=== PATIENT | female | born 1965 | race Caucasian/White ===

== ENCOUNTER 2018-09-23 17:36 | Emergency (ER) | payer MEDICAID, SELFPAY ==
[2018-09-23 17:37] VITALS: BP 139/97; PULSE 67; RESP 20; TEMP 36.8; O2SAT 96; BMI 33.5
--- NOTE | 2018-09-23 17:53 | CT_ITS ---
STUDY: CT BRAIN WITHOUT CONTRAST REASON FOR EXAM: Female, 52 years old. Syncope. RADIATION DOSAGE (If Supplied By Facility): CTDIvol = ( 44.99 ) mGy, DLP = ( 796.11 ) mGycm TECHNIQUE: Transaxial CT imaging of the brain was performed without administration of intravenous contrast material. Individualized dose optimization techniques were used for this CT. COMPARISON: No relevant priors. FINDINGS: Normal soft tissue structures. Normal calvarium. Normal size ventricles and extra-axial spaces for the patient's age. Normal white matter tracts of the cerebral hemispheres. Normal basal ganglia and thalami. Normal brainstem. Normal cerebellum. There is no intracranial hemorrhage. There are no findings of an acute ischemic infarction. Normal visualized paranasal sinuses. CT/Brain/Head without Contrast IMPRESSION: Normal unenhanced CT scan of the brain. Electronically Signed: Coral Montano MD at 18:16 EDT Tel , Service support ,
--- NOTE | 2018-09-23 17:54 | EKG12_ITS ---
Test Reason : Blood Pressure : / mmHG Vent. Rate : 071 BPM Atrial Rate : 071 BPM P-R Int : 132 ms QRS Dur : 092 ms QT Int : 416 ms P-R-T Axes : 034 024 023 degrees QTc Int : 452 ms Normal sinus rhythm Normal ECG Confirmed by KATHIA BOLES, HEIDI ([id number]), writer editor BLAIRE RHODES ([id number]) on 09/25/2018 1:48:14 PM Referred By: ABRAHAN Confirmed By:HEIDI BAE MD
--- NOTE | 2018-09-23 18:00 | RAD_ITS ---
STUDY: X-RAY CHEST REASON FOR EXAM: Female, 52 years old. Weakness, syncope. TECHNIQUE: Portable chest. COMPARISON: None. FINDINGS: The lungs are clear and expanded. There is no demonstrated pleural abnormality. Normal size heart. Normal mediastinum and alissa. Normal visualized pulmonary arteries. Normal visualized aortic arch and descending thoracic aorta. Normal visualized thoracic spine. Normal visualized ribs, clavicles, and shoulders. There is no demonstrated abnormality of the visualized soft tissue structures of the upper abdomen. RAD/Chest 1 View (Portable) IMPRESSION: Normal x-ray examination of the chest. Electronically Signed: Coral Montano MD at 18:13 EDT Tel , Service support ,
[2018-09-23] MEDS: 0.9% Normal Saline 1,000 ML 1000 ML IV (18:03)
[2018-09-23 18:08] LABS: Absolute Lymphocyte Count 2.71 X10^3/uL (0.83-4.51); Absolute Neutrophil Count 4.4 X10^3/uL (2.0-7.7); Basophil# 0.05 X10^3/uL; Basophil% 0.6 % (0-1); Eosinophil# 0.11 X10^3/uL; Eosinophils% 1.4 % (0-5); Hematocrit 39.7 % (37-47); Hemoglobin 13.4 g/dL (12.0-15.0); Lymphocyte # 2.71 X10^3/ul (4.0); Lymphocyte % 34.2 % (19-41); Mean Corp Hgb Conc 33.8 g/dL (32-36); Mean Corpuscular Hgb 32.4 pg (27.0-32.0); Mean Corpuscular Volume 95.9 fL (81-99); Mean Platelet Vol. 9.8 fl (6.2-12.0); Monocyte# 0.59 X10^3/uL; Monocyte% 7.4 % (0-10); NRBC Flagged by Analyzer 0 % (0-5); Neutrophil # 4.44 X10^3/uL (2.7-7.7); Neutrophil % 56.1 % (47-70); Platelet Count 236 K/mm3 (150-450); RBC Distribution Width SD 45.8 fl (35.1-43.9); Red Blood Count 4.14 M/mm3 (4.2-5.4); White Blood Count 7.9 K/mm3 (4.4-11.0)
[2018-09-23 18:28] LABS: AST(SGOT) 30 U/L (15-37); Alanine Aminotransfer ALT/SGPT 58 U/L (13-56); Albumin, Serum 3.6 g/dL (3.2-5.0); Alkaline Phosphatase 110 U/L (45-117); Anion Gap 6 (5-15); BUN 13 mg/dL (7-18); BUN/Creat Ratio 15.9 RATIO (10-20); Calcium,Total 8.8 mg/dL (8.5-10.1); Chloride 108 mmol/L (98-107); Creatinine, Serum 0.82 mg/dL (0.55-1.02); EST Glomerular Filtration Rate 78 mL/min (>60); Est Glom Filt Rate - Afr Amer 94 mL/min (>60); Estimated Creatinine Clearance 83.87 ml/min; Globulin 3.6 g/dL (2.2-4.2); Glucose 108 mg/dL (74-106); Potassium 3.2 mmol/L (3.5-5.1); Protein, Total 7.2 g/dL (6.4-8.2); Sodium Level 140 mmol/L (136-145)
--- NOTE | 2018-09-23 18:47 | ED.VIS.GEN ---
History of Present Illness Chief Complaint: Syncope Informant: Patient Onset: Today Context: Gradual Onset Timing: Continuous Current Severity: Moderate Maximum Severity: Moderate Narrative: Patient was at a wedding, she sustained a syncopal episode. She was standing up and felt quite lightheaded. She has no chest pain shortness of breath fever or chills. She still has some nausea. The episode was described as a brief loss of consciousness with rapid full recovery. There is no seizure-like activity. She does have a headache posteriorly from the fall. Past Medical History - Allergies and Home Meds Allergies/Adverse Reactions: Allergies No Known Allergies Allergy (Verified 09/23/18 17:37) Primary Care Physician: Wenceslao Mcleod [Primary Care Provider] - Prior records reviewed: Yes Past Medical History: - - Hypothyroidism, PVCs Smoking Status: Former smoker Review of Systems All systems negative except as indicated General: Reports: - - Syncope as in HPI. Denies: Fever Eyes: Denies: Visual changes - bilaterally, Diplopia ENT: Denies: Rhinorrhea, Sore throat Cardiovascular: Denies: Chest pain, Palpitations Respiratory: Denies: Dyspnea, Cough, Dyspnea on exertion Gastrointestinal: Reports: Nausea. Denies: Abdominal pain, Vomiting, Diarrhea, Melena, Hematochezia Genitourinary: Denies: Dysuria, Hematuria, Frequency Musculoskeletal: Denies: Back pain, Extremity Pain Skin: Denies: Rash, Wounds Neurological: Reports: Headache. Denies: Weakness, Numbness Physical Exam Vital Signs/Narrative: Vital Signs Temp Pulse Resp BP Pulse Ox 09/23/18 17:37 98.3 F 67 20 H 139/97 H 96 General: Well nourished, Well developed Head: Normocephalic, - - Tenderness posterior scalp region Eyes: Perrl ENT: Moist mucous membranes Neck: Nontender Cardiovascular: Regular rate, Regular rhythm Respiratory: No distress Abdomen: Soft, Nontender Back: Normal Inspection. Negative for: CVA tenderness Extremities: Nontender, No edema Skin: Normal color, No rash Neurological: Alert, Oriented x3, Normal Strength, Normal Sensation Diagnostic/Tx/Re-eval Chest X-Ray - ED: 1 View, Read by Radiologist - Rhythm Strip Rhythm Strip: Sinus Rhythm Rate: 71 Ectopy: None - EKG Initial EKG Interpretation: Sinus Rhythm, - - Rate 71, normal RI and QTc intervals. No ST changes. Interpreted by emergency doctor - Medical Decision Making Patient appears well, she is given IV fluids and she is significantly improved. I will discharge her. She has normal blood work, normal CT and x-ray. This is unlikely to be cardiac. She can follow-up with her PCP Disposition discharge stable condition ED Disposition - Plan for ED Patient: Disposition: Home or Assisted Living Instructions: SYNCOPE, Unk Cause Prescriptions: Ondansetron [Zofran Odt] 4 mg PO Q8H PRN PRN #10 tab PRN Reason: Nausea Prescription Printed Referrals: Wenceslao Mcleod [Primary Care Provider] - 5-7 Days
[2018-09-23 19:19] VITALS: BP 140/61; PULSE 67; RESP 18; O2SAT 99
== END 2018-09-23 19:20 | disposition home or self-care (01) ==
PROVIDERS: Emergency Provider Emergency Medicine; Family Provider Family Medicine; PCP Family Medicine
DX: R55 Syncope and collapse (principal); R51 Headache; E03.9 Hypothyroidism, unspecified; Z87.891 Personal history of nicotine dependence
CPT/HCPCS: 70450; 71045; 80053; 84484; 85025; 93005; 99285; J2405

== ENCOUNTER 2024-01-03 10:28 | Observation (INO) | payer OTHER, SELFPAY ==
[2024-01-03] VITALS (14 sets, daily range): BP systolic 130–167; BP diastolic 73–119; PULSE 76–229; RESP 9–29; TEMP 36.1–37; O2SAT 92–100; BMI 35.6; BMI 34.4
--- NOTE | 2024-01-03 10:54 | EKG12_ITS ---
Test Reason : TACHY Blood Pressure : */* mmHG Vent. Rate : 220 BPM Atrial Rate : * BPM P-R Int : * ms QRS Dur : 114 ms QT Int : 220 ms P-R-T Axes : * -5 149 degrees QTcB Int : 420 ms Critical Test Result: High HR Poor data quality, interpretation may be adversely affected WIDE COMPLEX TACHYCARDIA Incomplete left bundle branch block Left ventricular hypertrophy with repolarization abnormality ( Pearce product ) Abnormal ECG Confirmed by KATHIA BOLES, HEIDI ([id number]), sound editor PRASHANT GILL ([id number]) on 01/05/2024 11:26:13 AM Referred By: Confirmed By: HEIDI BAE MD
--- NOTE | 2024-01-03 10:59 | ED.VIS.CHEST ---
HPI History of Present Illness Chief Complaint: Chest Pain Informant: patient Onset/Context/Timing Onset: Today Activity at onset: sudden Timing: Continuous Quality: Positive for Burning, Heaviness, Sharp and Tightness Location: Substernal Current Severity: Severe Maximum Severity: Severe Worsened By: Nothing Relieved By: Nothing Associated Symptoms: Positive for Dyspnea, Lightheadedness and Palpitations; Negative for Nausea, Vomiting, Diaphoresis, Cough, Fever or Acid Reflux Narrative Narrative: Patient presents with chest pain and palpitations that began today. Patient states it began rather suddenly. Patient states it has been constant. Patient describes her pain as heaviness, tightness, burning, and sharp. Patient states it is over the lower substernal area. Patient states she feels lightheaded with this. Patient admits to some shortness of breath. Patient states she feels her heart racing. Patient denies any nausea or vomiting. Patient denies any diaphoresis. Patient states she took her metoprolol at home with no improvement. Prior Similar Symptoms: Yes CVD Risk Factors: Positive for Hypertension; Negative for Diabetes, Hypercholesterolemia, Family History 1' </=55 or Smoking PE Risk Factors: Negative for Recent Travel/Surgery, Recent Immobilization, Prior DVT or PE, Cancer or OCP + Smoking + >/=35 PFSH PFSH Medical History (Updated 01/03/24 @ 15:[address] Alex García, ) Arrhythmia Neuropathy Hypothyroid Home Medications ?Medication ?Instructions ?Recorded ?Last Taken ?Type levothyroxine 125 mcg tablet 0.5 tab PO DAILY 09/23/18 Unknown History gabapentin 100 mg capsule 100 mg PO TID 01/03/24 Unknown History gabapentin 100 mg capsule 200 mg PO QPM NERVE PAIN 01/03/24 Unknown History Allergy/AdvReac Type Severity Reaction Status Date / Time No Known Allergies Allergy Verified 01/03/24 10:29 Surgical History (Updated 01/03/24 @ 11:[address] Alex García, DO) H/O gastric sleeve Hx of appendectomy Hx of tubal ligation History of repair of hiatal hernia Hx of tonsillectomy Social History (Updated 01/03/24 @ 11:[address] Alex García, DO) Smoking Status: Former smoker alcohol intake: current alcohol intake frequency: a few times a month ROS ROS ED Constitutional Constitutional ED: Denies chills or fever(s) Eyes Eyes: Denies blurry vision or change in vision ENT ENT ED: Denies rhinorrhea or sore throat Cardiovascular Cardiovascular: Reports chest pain and palpitations Respiratory/Chest Respiratory/Chest: Reports dyspnea; Denies cough Gastrointestinal Gastrointestinal: Denies abdominal pain, nausea or vomiting Genitourinary Genitourinary ED: Denies dysuria or hematuria Musculoskeletal Musculoskeletal: Denies back pain or neck pain Integumentary Denies abscess or rash Neurologic Neurologic: Denies headache(s) or weakness Allergic/Immunologic Allergic/Immunologic ED: Denies mouth swelling or urticaria EXAM Physical Exam Const Vital Signs: 01/03/24 10:28 01/03/24 10:31 01/03/24 10:43 Temperature 98.3 F Temperature Source Temporal Pulse Rate 229 H 229 H 107 H Respiratory Rate 21 H Blood Pressure 163/119 H 167/115 H Blood Pressure Mean 133 132 Pulse Ox 97 Oxygen Delivery Method 01/03/24 10:47 01/03/24 11:03 01/03/24 11:05 Temperature Temperature Source Pulse Rate 93 96 Respiratory Rate 9 L 15 Blood Pressure 152/85 H 152/85 H Blood Pressure Mean 107 107 Pulse Ox 92 98 96 Oxygen Delivery Method Room Air Room Air Room Air 01/03/24 11:30 01/03/24 12:00 01/03/24 13:00 Temperature Temperature Source Pulse Rate 91 81 87 Respiratory Rate 22 H 17 29 H Blood Pressure 152/85 H 155/83 H 154/94 H Blood Pressure Mean 107 107 114 Pulse Ox 96 95 98 Oxygen Delivery Method Room Air Room Air Room Air 01/03/24 14:00 01/03/24 14:31 Temperature 98.6 F Temperature Source Pulse Rate 91 82 Respiratory Rate 16 17 Blood Pressure 141/74 H 146/73 H Blood Pressure Mean 96 97 Pulse Ox 96 99 Oxygen Delivery Method Room Air Positive well nourished and well developed General Appearance ED: well developed and NAD HEENT Reports moist mucous membranes Neck supple and no JVD Chest Wall inspection of chest normal and palpation of chest normal Resp normal respiratory effort and clear to auscultation bilaterally Cardio regular rhythm Rate: tachycardic GI soft to palpation, non-tender and non-distended Extremity normal to inspection General Extremety ED: Negative for edema General Extremity: Negative for edema Neuro oriented x3, CN's II-XII intact bilaterally, no sensory deficits noted and gait normal Sensorium / Orientation: awake and alert Motor Exam: strength 5/5 throughout Psych mental status grossly normal MDM MDM MDM Narrative Medical decision making narrative: Differential diagnose includes cardiac dysrhythmia, cardiac ischemia, pneumonia, pneumothorax, electrolyte abnormality, hypothyroidism, hyperthyroidism, hypomagnesemia, and pulmonary embolism. EKG will be obtained to assess for cardiac dysrhythmia and cardiac ischemia. Chest x-ray will be obtained to assess for pneumonia and pneumothorax. CBC will be obtained to assess for leukocytosis and anemia. Basic metabolic profile will be obtained to assess for electrolyte abnormality and renal function. D-dimer will be obtained to assess for pulmonary embolism. TSH will be obtained to assess for hypothyroidism and hyperthyroidism. High-sensitivity troponin will be obtained to assess for cardiac ischemia. PT with INR and PTT will be obtained to assess for coagulopathy. Serum magnesium will be obtained to assess for hypomagnesemia. Lab Data Attestation: I reviewed the patient's lab results. Lab results narrative: CBC was reviewed and was within normal limits. Basic metabolic profile was reviewed and was essentially within normal limits. PT with INR and PTT were reviewed and were within normal limits. TSH was reviewed and was normal at 0.0605. Initial high-sensitivity troponin was reviewed and was normal at 3. 2-hour repeat high-sensitivity troponin was reviewed and was mildly elevated at 78. D-dimer was reviewed and was elevated at 1.11. Labs: Laboratory Results - last 24 hr 01/03/24 01/03/24 11:00 13:15 WBC 8.4 RBC 4.72 Hgb 14.8 Hct 46.8 MCV 99.2 H MCH 31.4 MCHC 31.6 L RDW Std Deviation 48.7 H RDW Coeff of Kori 13.2 Plt Count 289 MPV 10.3 Immature Gran % (Auto) 0.400 Neut % (Auto) 71.2 H Lymph % (Auto) 19.9 Casey % (Auto) 7.1 Eos % (Auto) 0.8 Baso % (Auto) 0.6 Absolute Neuts (auto) 6.0 Absolute Lymphs (auto) 1.67 Nucleated RBC % 0 PT 12.1 INR 0.9 APTT 24.6 D-Dimer Quant (PE/DVT) 1.11 H* Sodium 138 Potassium 3.4 L Chloride 105 Carbon Dioxide 24.0 Anion Gap 9 BUN 12 Creatinine 0.97 Est GFR (MDRD) Af Amer 76 Est GFR (MDRD) Non-Af 62 BUN/Creatinine Ratio 12.3 Glucose 163 H Calcium 10.0 Magnesium 2.4 Troponin I High Sens 3 78 H TSH 0.605 Radiography Chest X-Ray - ED: 1 View, Read by ED Physician, Read by Radiologist and No Acute Disease Diagnostic Testing: Clinical Impression(s) from Imaging Studies Chest X-Ray 01/03/24 11:10 IMPRESSION: 1.6 cm nodular opacity within the right upper lung, likely reflects a confluence of shadows, cannot exclude an underlying nodule, recommend PA and lateral images for further characterization. Electronically Signed: Hali Padron MD at 11:30 EDT , Chest CTA 01/03/24 12:01 IMPRESSION: No demonstrated pulmonary embolism or arterial dissection. Bilateral emphysema. Pulmonary emphysema on CT is an independent risk factor for lung cancer. Recommend consideration for low dose CT (LDCT) lung cancer screening in the future. 5 and 4 mm pulmonary nodules, recommend follow-up chest CT in 12 months. Electronically Signed: Hali Padron MD at 13:07 EDT , Portable 1 view chest x-ray was obtained. On my independent interpretation, lung daly show a 1.6 cm nodular opacity in the right upper lung, this could be an underlying nodule. There is normal cardiac silhouette. Bony thorax is normal. There is no acute process noted. Radiologist also interpreted the x-ray and agrees. Because of the elevated D-dimer, CTA of the chest was obtained. There is bilateral emphysema. There is no evidence of pulmonary embolism or aortic dissection. There are 5 and 4 mm pulmonary nodules. Repeat chest CT is recommended in 12 months. This was interpreted by the radiologist and was also independently reviewed by myself. EKG Initial EKG: Attestation: I personally reviewed and interpreted this EKG as follows: Interpretation: SVT and Non-Specific ST Changes Comments: EKG was obtained. On my independent interpretation, it showed supraventricular tachycardia with a rate of 220. QRS interval was normal at 114 ms. QTc interval was 420 ms. There is borderline left axis deviation -5. There are nonspecific ST-T wave changes, these are most likely rate related. Prior EKG tracings: available for review Prior: Changed Follow-up EKG: Attestation: I personally reviewed and interpreted this EKG as follows: Interpretation: Sinus Rhythm (96) and Non-Specific ST Changes Comments: Repeat EKG was obtained. On my independent interpretation, shows a normal sinus rhythm with a rate of 96. FL interval was normal at 156 ms. QRS and was normal at 84 ms. QTc interval is normal at 429 ms. [place] was normal. There are nonspecific ST-T wave changes in the lateral leads. Prior EKG tracings: available for review Prior: Changed (Compared to EKG dated 09/23/2018, the nonspecific ST-T wave changes are new.) Management Discussion w/another healthcare provider: Hospitalist Treatment and Re-Evaluation :: Patient was given 6 mg of adenosine. Patient had no change with this. Patient was given 12 mg of adenosine. Patient converted to a normal sinus rhythm with this. Patient was given aspirin. Patient remained in a normal sinus rhythm. Patient was advised of her findings. Given the increase in her troponin, recommend admission to the hospital. Case was discussed with the hospitalist. He will admit the patient to his service. Patient and family understood and were agreeable with the plan. All questions were answered. Critical Care Time Critical Care Time: Yes Critical care time (excluding procedures): 30-74 minutes, Including time spent:, Discussing w/Patient &/or Family/Padding Gluer, Arranging Admission or Transfer and Performing Direct Patient Care at Bedside Discharge Plan Triage Chief Complaint: Chest Pain ED Provider: Alex García Dx/Rx/DC Orders Clinical Impression: Supraventricular tachycardia, Arrhythmia, Elevated troponin Prescriptions: No Action levothyroxine 125 MCG tablet 0.5 tab PO DAILY gabapentin 100 mg capsule 100 mg PO TID Rx Instructions: One tablet in AM, one tablet in afternoon, two tablets in evening. Primary Care Provider: Wenceslao Mcleod Referrals: Wenceslao Mcleod MD [Primary Care Provider] - Print Language: Hebrew Disposition Disposition: Acute Care Hospital [facility]
[2024-01-03] MEDS: Aspirin 81 MG TAB.CHEW 324 MG PO (11:00)
--- NOTE | 2024-01-03 11:00 | EKG12_ITS ---
Test Reason : POST RAJNI Blood Pressure : */* mmHG Vent. Rate : 96 BPM Atrial Rate : 96 BPM P-R Int : 156 ms QRS Dur : 84 ms QT Int : 340 ms P-R-T Axes : 51 6 65 degrees QTcB Int : 429 ms Normal sinus rhythm Nonspecific ST abnormality Abnormal ECG Confirmed by KATHIA BOLES, HEIDI ([id number]), design editor PRASHANT GILL ([id number]) on 01/05/2024 11:27:01 AM Referred By: Confirmed By: HEIDI BAE MD
[2024-01-03] MEDS: Adenosine 6 MG/2 ML Syringe 12 MG IV (11:01)
[2024-01-03] MEDS: Adenosine 6 MG/2 ML Syringe IV (11:01)
[2024-01-03 11:09] LABS: Absolute Lymphocyte Count 1.67 X10^3/uL (0.83-4.51); Basophil# 0.05 X10^3/uL; Basophil% 0.6 % (0-1); Eosinophil# 0.07 X10^3/uL; Eosinophils% 0.8 % (0-5); Hematocrit 46.8 % (37-47); Hemoglobin 14.8 g/dL (12.0-15.0); Lymphocyte # 1.67 X10^3/ul (0.83-4.51); Lymphocyte % 19.9 % (19-41); Mean Corp Hgb Conc 31.6 g/dL (32-36); Mean Corpuscular Hgb 31.4 pg (27.0-32.0); Mean Corpuscular Volume 99.2 fL (81-99); Mean Platelet Vol. 10.3 fl (6.2-12.0); Monocyte% 7.1 % (0-10); NRBC Flagged by Analyzer 0 % (0-5); Neutrophil # 5.98 X10^3/uL (2.7-7.7); Neutrophil % 71.2 % (47-70); Platelet Count 289 K/mm3 (150-450); RBC Distribution Width CV 13.2 % (11.6-14.6); RBC Distribution Width SD 48.7 fl (35.1-43.9); Red Blood Count 4.72 M/mm3 (4.2-5.4); White Blood Count 8.4 K/mm3 (4.4-11.0)
--- NOTE | 2024-01-03 11:10 | RAD_ITS ---
INDICATION: chest pain EXAMINATION/TECHNIQUE: X-RAY - XR Chest 1 View COMPARISON: No relevant prior comparison study available FINDINGS: LINES/DEVICES: None. LUNGS: There is a 1.6 cm nodular opacity within the right upper lung. No pneumothorax. MEDIASTINUM AND CARDIOVASCULAR STRUCTURES: Cardiac silhouette not enlarged. Central airways and mediastinal contour are unremarkable. BONES AND SOFT TISSUES: Unremarkable. RAD/Chest 1 View (Portable) IMPRESSION: 1.6 cm nodular opacity within the right upper lung, likely reflects a confluence of shadows, cannot exclude an underlying nodule, recommend PA and lateral images for further characterization. Electronically Signed: Hali Padron MD at 11:30 EDT ,
[2024-01-03 11:17] LABS: International Normalized Ratio 0.9; Prothrombin Time (Protime)PT. 12.1 SECONDS (11.7-14.9)
[2024-01-03 11:19] LABS: Partial Thromboplast Time 24.6 Seconds (24.1-36.2)
[2024-01-03 11:32] LABS: Anion Gap 9 (5-15); BUN 12 mg/dL (7-18); BUN/Creat Ratio 12.3 RATIO (10-20); Chloride 105 mmol/L (98-107); Creatinine, Serum 0.97 mg/dL (0.55-1.02); EST Glomerular Filtration Rate 62 mL/min (>60); Est Glom Filt Rate - Afr Amer 76 mL/min (>60); Glucose 163 mg/dL (74-106); Magnesium 2.4 mg/dL (1.6-2.6); Potassium 3.4 mmol/L (3.5-5.1); Sodium Level 138 mmol/L (136-145); Thyroid Stim Hormone (TSH) 0.605 uIU/mL (0.358-3.740); Troponin-I HS (w/2H Reflex) 3 pg/mL (3.0-54.0)
[2024-01-03 11:48] LABS: D-Dimer Quantitative (DVT/PE) 1.11 FEU/ug/m (0.27-0.49)
--- NOTE | 2024-01-03 12:01 | CT_ITS ---
STUDY: CTA CHEST REASON FOR EXAM: Female, 58 years old. Elevated D-dimer RADIATION DOSAGE (If Supplied By Facility): CTDIvol = ( 12.38 ) mGy, DLP = ( 434.34 ) mGycm TECHNIQUE: The examination was performed with the intravenous administration of IV 100mL Isovue-370. Post-processing of the angiographic images was performed, with multiplanar reformation and 3D reconstruction. The protocol utilizes one or more of the following dose reduction techniques: automated exposure control, adjustment of mA and/or kV according to patient size,and/or use of iterative reconstruction technique. COMPARISON: No relevant prior comparison study available FINDINGS: Normal enhancement of the main pulmonary artery and right and left pulmonary arteries. Normal enhancement of the bilateral peripheral pulmonary arteries. There is no demonstrated pulmonary embolism. Normal thoracic aorta and visualized great vessels. There is no demonstrated aortic dissection. Normal heart and pericardium. There are no coronary artery calcifications visualized. Normal mediastinum. Normal hilar regions. Normal visualized trachea and bronchi. There are bilateral paraseptal emphysema. Within the right middle lobe there is a 5 mm subpleural nodule. Within the lingula there is a 4 mm subpleural nodule. Normal chest wall structures. There are degenerative changes of thoracic spine. Normal visualized upper abdomen. CT/CTA Chest W/WO Contrast IMPRESSION: No demonstrated pulmonary embolism or arterial dissection. Bilateral emphysema. Pulmonary emphysema on CT is an independent risk factor for lung cancer. Recommend consideration for low dose CT (LDCT) lung cancer screening in the future. 5 and 4 mm pulmonary nodules, recommend follow-up chest CT in 12 months. Electronically Signed: Hali Padron MD at 13:07 EDT ,
[2024-01-03 13:06] LABS: Reflex Troponin-HS? (from REC) Y
[2024-01-03 13:40] LABS: Troponin-I HS 78 pg/mL (3.0-54.0)
--- NOTE | 2024-01-03 15:27 | HP.PCM.HOS_ITS ---
HPI - General General Date of Admission: 01/03/24 Date of Service: 01/03/24 Chief Complaint: Palpitations HPI Narrative ELLIE KELLER, is a 58 F who presents with palpitations. She was in her normal state of health and then experienced palpitations today. Was brought to the emergency room and was found to be in SVT. Patient received 6 mg of adenosine without effect and then 12 which did convert her to normal sinus rhythm. Since then, she has continued to be in normal sinus rhythm. Patient has had these bouts before. Overall it has been going on for roughly 31 years and usually happens about twice a year. By time she gets evaluated she is no longer in the rhythm. So she is never been previously diagnosed with SVT. She has seen cardiology in the past and has been diagnosed with PVCs and has tried metoprolol in the past but she was unable to tolerate that due to hypotension and fatigue. While she was here her troponins were slightly elevated at 78. The hospitalist service was contacted for admission. Additionally, patient received 3 and 24 mg of aspirin in the emergency room. [facility] Medical History Arrhythmia Neuropathy Hypothyroid Home Medications ?Medication ?Instructions ?Recorded ?Last Taken ?Type levothyroxine 125 mcg tablet 62.5 mcg PO DAILY THYROID 09/23/18 Unknown History gabapentin 100 mg capsule 100 mg PO BID NERVE PAIN 01/03/24 Unknown History gabapentin 100 mg capsule 200 mg PO QPM NERVE PAIN 01/03/24 Unknown History pregabalin 50 mg capsule 50 mg PO BID PAIN 01/03/24 Unknown History Allergy/AdvReac Type Severity Reaction Status Date / Time No Known Allergies Allergy Verified 01/03/24 10: Surgical History H/O gastric sleeve Hx of appendectomy Hx of tubal ligation History of repair of hiatal hernia Hx of tonsillectomy Social History Smoking Status: Former smoker alcohol intake: current alcohol intake frequency: a few times a month ROS ROS Narrative All review of systems were negative except as mentioned above in the history of present illness and the other review of systems. Vital Signs Vital Signs Vital Signs: 01/03/24 10:28 01/03/24 10:31 01/03/24 10:43 Temperature 36.8 C Temperature Source Temporal Pulse Rate 229 H 229 H 107 H Respiratory Rate 21 H Blood Pressure 163/119 H 167/115 H Blood Pressure Mean 133 132 Pulse Ox 97 Oxygen Delivery Method 01/03/24 10:47 01/03/24 11:03 01/03/24 11:05 Temperature Temperature Source Pulse Rate 93 96 Respiratory Rate 9 L 15 Blood Pressure 152/85 H 152/85 H Blood Pressure Mean 107 107 Pulse Ox 92 98 96 Oxygen Delivery Method Room Air Room Air Room Air 01/03/24 11:30 01/03/24 12:00 01/03/24 13:00 Temperature Temperature Source Pulse Rate 91 81 87 Respiratory Rate 22 H 17 29 H Blood Pressure 152/85 H 155/83 H 154/94 H Blood Pressure Mean 107 107 114 Pulse Ox 96 95 98 Oxygen Delivery Method Room Air Room Air Room Air 01/03/24 14:00 01/03/24 14:31 01/03/24 15:00 Temperature 37.0 C Temperature Source Pulse Rate 91 82 90 Respiratory Rate 16 17 22 H Blood Pressure 141/74 H 146/73 H 146/73 H Blood Pressure Mean 96 97 97 Pulse Ox 96 99 98 Oxygen Delivery Method Room Air Room Air Physical Exam Const alert and no apparent distress HEENT normocephalic, head/scalp atraumatic, hearing grossly normal bilaterally and moist oral mucous membranes Neck no lymphadenopathy Resp normal respiratory effort, no retractions, no use of accessory muscles and clear to auscultation bilaterally Cardio regular rate, regular rhythm, S1 normal heart sound and S2 normal heart sound GI normal to inspection, nondistended, normoactive bowel sounds, soft to palpation, non-tender and non-distended Extremity normal to inspection, full ROM and no clubbing, cyanosis or edema Neuro oriented x3 and moves all extremities Sensorium / Orientation: awake and alert Psych affect normal Results Lab / Micro Data 01/03/24 11:00 01/03/24 11:00 Labs: Laboratory Results - last 24 hr 01/03/24 11:00: WBC 8.4, RBC 4.72, Hgb 14.8, Hct 46.8, MCV 99.2 H, MCH 31.4, M CHC 31.6 L, RDW Std Deviation 48.7 H, RDW Coeff of Kori 13.2, Plt Count 289, MPV 10.3, Immature Gran % (Auto) 0.400, Neut % (Auto) 71.2 H, Lymph % (Auto) 19.9, [place] % (Auto) 7.1, Eos % (Auto) 0.8, Baso % (Auto) 0.6, Absolute Neuts (auto) 6.0, Absolute Lymphs (auto) 1.67, Nucleated RBC % 0, PT 12.1, INR 0.9, APTT 24.6, D-Dimer Quant (PE/DVT) 1.11 H*, Sodium 138, Potassium 3.4 L, Chloride 105, Carbon Dioxide 24.0, Anion Gap 9, BUN 12, Creatinine 0.97, Est GFR (MDRD) Af Amer 76, Est GFR (MDRD) Non-Af 62, BUN/Creatinine Ratio 12.3, Glucose 163 H, Calcium 10.0, Magnesium 2.4, Troponin I High Sens 3, TSH 0.605 01/03/24 13:15: Troponin I High Sens 78 H Imaging Radiology Impression Chest X-Ray 01/03/24 11:10 IMPRESSION: 1.6 cm nodular opacity within the right upper lung, likely reflects a confluence of shadows, cannot exclude an underlying nodule, recommend PA and lateral images for further characterization. Electronically Signed: Hali Padron MD at 11:30 EDT , Chest CTA 01/03/24 12:01 IMPRESSION: No demonstrated pulmonary embolism or arterial dissection. Bilateral emphysema. Pulmonary emphysema on CT is an independent risk factor for lung cancer. Recommend consideration for low dose CT (LDCT) lung cancer screening in the future. 5 and 4 mm pulmonary nodules, recommend follow-up chest CT in 12 months. Electronically Signed: Hali Padron MD at 13:07 EDT , Assessment & Plan Assessment/Plan (1) Supraventricular tachycardia: PLAN: Since resolved after 2 doses of adenosine. Sound like patient has been experiencing this twice a year for the past 37 years. Patient previously has not tolerated metoprolol in the past due to issues with hypotension and fatigue. Currently, her rhythm is normal sinus rhythm and she is currently stable. Plan is to bring her in overnight, check an echocardiogram and to monitor her heart rhythm. I do not have any plans for treating her at this time due to previous intolerance but if she is manifesting recurrent episodes then we may need to consider adding medication. Given her previous intolerance to beta- blockers, would consider calcium channel blockers, if this recurs. In the meantime, I recommend that she follow-up with her medical billing supervisor in [place] or she may follow-up with [facility] to see if she would need a referral to electrophysiology for evaluation for ablation. (2) Elevated troponin: PLAN: Mildly elevated and this is most likely a type II event due to her significant tachycardia. Will cycle additional troponins and if they do go up considerably then we will treat accordingly but in the meantime expectant management. Check an echocardiogram. PLAN: Plan Hypothyroidism: Continue with levothyroxine VTE prophylaxis: Not indicated given current observation status Patient was reluctant to be admitted and so I gave her my recommendation for being admitted into the hospital, check an echocardiogram and observe her. Told her that if she chose to go home that she could be discharged and she would just need to follow-up with her medical billing supervisor. She agreed to being brought into the hospital overnight. Case discussed with her at bedside. Charges/Coding Visit Charges Inpatient E&M: 94329 Init Hosp L2
--- NOTE | 2024-01-03 15:47 | ECHOD_ITS ---
Reason For Study: ELEVATED TROPONINS Procedure This was a 2D Doppler, Color Flow transthoracic echocardiogram. Exam performed portable in patient room. Left Ventricle Normal LV size. Left ventricular systolic function is normal. The left ventricular ejection fraction is 65 %. Stage 1 diastolic dysfunction. No regional wall motion abnormalities noted. Right Ventricle Normal RV size. Normal systolic function. Atria Normal left atrium. Normal right atrium. Mitral Valve Normal mitral valve. Tricuspid Valve Normal tricuspid valve. Aortic Valve Trisinus/trileaflet aortic valve. Pulmonic Valve Normal pulmonic valve. Great Vessels Normal aortic root. Pericardium/Pleural No pericardial effusion. MMode/2D Measurements & Calculations LVIDd: 4.5 cm IVSd: 0.95 cm Ao root diam: 2.9 cm LVIDs: 2.7 cm LVPWd: 1.0 cm RVDd: 2.9 cm FS: 39.4 % LAV(MOD-bp): 51.8 ml LVAd ap4: 26.4 cm2 LVAd ap2: 28.1 cm2 LAV(MOD-bp) Indexed: 23.2 ml/m2 LVLd ap4: 8.4 cm LVLd ap2: 8.6 cm LAV(MOD-sp2): 51.4 ml EDV(MOD-sp4): 70.2 ml EDV(MOD-sp2): 76.8 ml LAV(MOD-sp4): 51.5 ml EDV(sp4-el): 70.3 ml EDV(sp2-el): 77.5 ml LVAs ap4: 13.6 cm2 LVAs ap2: 14.0 cm2 LVLs ap4: 7.2 cm LVLs ap2: 7.2 cm ESV(MOD-sp4): 24.1 ml ESV(MOD-sp2): 24.0 ml ESV(sp4-el): 21.8 ml ESV(sp2-el): 23.2 ml EF(MOD-sp4): 65.7 % EF(MOD-sp2): 68.8 % EF(sp4-el): 69.0 % SV(MOD-sp4): 46.1 ml SV(MOD-sp2): 52.8 ml SV(sp4-el): 48.5 ml SI(MOD-sp4): 20.6 ml/m2 SI(MOD-sp2): 23.6 ml/m2 LA A4 area: 19.3 cm2 LA dimension(2D): 4.0 cm RA A4 area: 14.6 cm2 TAPSE: 2.2 cm Time Measurements MV dec time: 0.22 sec Doppler Measurements & Calculations MV E max krish: 67.0 cm/sec Lat Peak E' Krish: 14.3 cm/sec Med Peak E' Krish: 10.8 cm/sec MV A max krish: 73.9 cm/sec E/E' lat: 4.7 E/E' med: 6.2 MV E/A: 0.91 MV V2 max: 81.1 cm/sec MV P1/2t max krish: 74.5 cm/sec Ao V2 max: 141.9 cm/sec MV max P.6 mmHg MV P1/2t: 66.9 msec Ao max P.1 mmHg MV V2 mean: 39.7 cm/sec Ao V2 mean: 89.4 cm/sec MV mean P.81 mmHg MV dec slope: 326.0 cm/sec2 Ao mean P.6 mmHg MV V2 VTI: 22.3 cm MVA(P1/2t): 3.3 cm2 Ao V2 VTI: 26.9 cm AV (velocity ratio): 0.69 LV V1 max: 83.5 cm/sec PA V2 max: 113.8 cm/sec LV V1 max P.8 mmHg PA V2 mean: 77.9 cm/sec LV V1 mean P.4 mmHg LV V1 mean: 56.9 cm/sec LV V1 VTI: 18.6 cm ECHO/Echo Complete Interpretation Summary Normal LV size. Left ventricular systolic function is normal. The left ventricular ejection fraction is 65 %. Stage 1 diastolic dysfunction. Structurally normal valves. Ordering Physician: Alex Hopkins Referring Physician: Wenceslao Mcleod Performed By: Vika Zamora, KATIA, RVT
--- OUTSIDE RECORDS SUMMARY | 2024-01-03 17:12 | XMS RPT_ITS | CCD ---
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 Creative Engagement Director: Armani Oakes MD WBC (Bld) [#/Vol] 6.8 10*3/uL Normal 3.8-10.8 [facility] Comment on above: Performed By: #### 6 399, 29864, 927, 899, 88768 #### [facility] [place] [address] Creative Engagement Director: Armani Oakes MD [facility] 12-17-2023 Albumin [Mass/Vol] 4.6 g/dL Normal 3.6-5.1 [facility] Comment on above: Performed By: #### 6 399, 54444, 927, 899, 62596 #### [facility] [place] [address] Creative Engagement Director: Armani Oakes MD Albumin/Globulin [Mass ratio] 1.7 {ratio} Normal 1.0-2.5 [facility] Comment on above: Performed By: #### 6 399, 99341, 927, 899, 55571 #### [facility] [place] [address] Creative Engagement Director: Armani Oakes MD ALP [Catalytic activity/Vol] 77 U/L Normal 37-153 [facility] Comment on above: Performed By: #### 6 399, 92442, 927, 899, 08784 #### [facility] of [address], [address] [place] [address] Creative Engagement Director: Armani Oakes MD ALT [Catalytic activity/Vol] 15 U/L Normal 6-29 [facility] Comment on above: Performed By: #### 6 399, 62375, 927, 899, 15072 #### [facility] of [address], [address] [place] [address] Creative Engagement Director: Armani Oakes MD AST [Catalytic activity/Vol] 12 U/L Normal 10-35 [facility] Comment on above: Performed By: #### 6 399, 26787, 927, 899, 39163 #### [facility] of [address], [address] [place] [address] Creative Engagement Director: Armani Oakes MD Bilirubin [Mass/Vol] 0.8 mg/dL Normal 0.2-1.2 [facility] Comment on above: Performed By: #### 6 399, 10468, 927, 899, 68027 #### [facility] [place] [address] Creative Engagement Director: Armani Oakes MD BUN/CREATININE RATIO SEE NOTE: Normal 6-22 [facility] Comment on above: Result Comment: Not Reported: BUN and Creatinine are within reference range. Performed By: #### 6 399, 49562, 927, 899, 84680 #### [facility] of [address], [address] [place] [address] Creative Engagement Director: Armani Oakes MD Calcium [Mass/Vol] 9.8 mg/dL Normal 8.6-10.4 [facility] Comment on above: Performed By: #### 6 399, 00473, 927, 899, 13250 #### [facility] of [address], [address] [place] [address] Creative Engagement Director: Armani Oakes MD Chloride [Moles/Vol] 108 mmol/L Normal 98-110 [facility] Comment on above: Performed By: #### 6 399, 47122, 927, 899, 86463 #### [facility] [place] [address] Creative Engagement Director: Armani Oakes MD CO2 [Moles/Vol] 25 mmol/L Normal 20-32 [facility] Comment on above: Performed By: #### 6 399, 32821, 927, 899, 72449 #### [facility] [place] [address] Creative Engagement Director: Armani Oakes MD Creatinine [Mass/Vol] 0.68 mg/dL Normal 0.50-1.03 [facility] Comment on above: Performed By: #### 6 399, 95291, 927, 899, 04162 #### [facility] [place] [address] Creative Engagement Director: Armani Oakes MD GFR/1.73 sq M.predicted among non-blacks MDRD (S/P/Bld) [Vol rate/Area] 101 mL/min/{1.73_m2} Normal > OR = 60 [facility] Comment on above: Performed By: #### 6 399, 21356, 927, 899, 24783 #### [facility] [place] [address] Creative Engagement Director: Armani Oakes MD Globulin (S) [Mass/Vol] 2.7 g/dL Normal 1.9-3.7 [facility] Comment on above: Performed By: #### 6 399, 08049, 927, 899, 22131 #### [facility] [place] [address] Creative Engagement Director: Armani Oakes MD Glucose [Mass/Vol] 101 mg/dL High 65-99 [facility] Comment on above: Result Comment: Fasting reference interval For someone without known diabetes, a glucose value between 100 and 125 mg/dL is consistent with prediabetes and should be confirmed with a follow-up test. Performed By: #### 6 399, 84604, 927, 899, 43355 #### [facility] [place] [address] Creative Engagement Director: Armani Oakes MD Potassium [Moles/Vol] 3.8 mmol/L Normal 3.5-5.3 [facility] Comment on above: Performed By: #### 6 399, 60808, 927, 899, 51736 #### [facility] [place] [address] Creative Engagement Director: Armani Oakes MD Protein [Mass/Vol] 7.3 g/dL Normal 6.1-8.1 [facility] Comment on above: Performed By: #### 6 399, 77590, 927, 899, 67882 #### [facility] [place] [address] Creative Engagement Director: Armani Oakes MD Sodium [Moles/Vol] 142 mmol/L Normal 135-146 [facility] Comment on above: Performed By: #### 6 399, 13837, 927, 899, 30159 #### [facility] [place] [address] Creative Engagement Director: Armani Oakes MD Urea nitrogen [Mass/Vol] 10 mg/dL Normal 7-25 [facility] Comment on above: Performed By: #### 6 399, 93630, 927, 899, 26592 #### [facility] [place] [address] Creative Engagement Director: Armani Oakes MD FOLATE, SERUMon 12-17-2023 Folate [Mass/Vol] 12.5 ng/mL Normal [facility] Comment on above: Result Comment: Refe rence Range Low: <3.4 Borderline: 3.4-5.4 Normal: >5.4 Performed By: #### 6 399, 88673, 927, 899, 12976 #### [facility] [place] [address] Creative Engagement Director: Armani Oakes MD TSHon 12-17-2023 TSH Qn 0.51 m[IU]/L Normal 0.40-4.50 [facility] Comment on above: Performed By: #### 6 399, 20796, 927, 899, 14918 #### [facility] [address], [address] [place] [address] Creative Engagement Director: Armani Oakes MD VITAMIN B12on 12-17-2023 Cobalamin (Vitamin B12) [Mass/Vol] 1185 pg/mL High 200-1100 [facility] Comment on above: Performed By: #### 6 399, 10895, 927, 899, 33080 #### [facility] [address], [address] [place] [address] Creative Engagement Director: Armani Oakes MD VITAMIN D,25-OH,TOTAL,IAon 1 VITAMIN D,25-OH,TOTAL,IA 25 ng/mL Low 30-100 [facility] Comment on above: Result Comment: Guillermina min D Status 25-OH Vitamin D: Deficiency: <20 ng/mL Insufficiency: 20 - 29 ng/mL Optimal: > or = 30 ng/mL For 25-OH Vitamin D testing on patients on D2-supplementation and patients for whom quantitation of D2 and D3 fractions is required, the QuestAssureD(TM) 25-OH VIT D, (D2,D3), LC/MS/MS is recommended: order code 13664 (patients >2yrs). See Note 1 Note 1 For additional information, please refer to [email or web address] (This link is being provided for informational/ educational purposes only.) Performed By: #### 6 399, 96066, 927, 899, 88852 #### [facility] [address], [address] [place] [address] Creative Engagement Director: Armani Oakes MD Laboratory - Chemistry and C hemistry - challengeon 12-16-2023 Albumin [Mass/Vol] 4.6 g/dL Normal 3.6 - 5.1 g/dL [facility], [facility].; [facility]. Albumin/Globulin [Mass ratio] 1.7 {ratio} Normal 1.0 - 2.5 [facility]; [facility] ALP [Catalytic activity/Vol] 77 U/L Normal 37 - 153 U/L [facility].; [facility], [facility]. ALT [Catalytic activity/Vol] 15 U/L Normal 6 - 29 U/L [facility].; [facility]. AST [Catalytic activity/Vol] 12 U/L Normal 10 - 35 U/L [facility]; [facility] Bilirubin [Mass/Vol] 0.8 mg/dL Normal 0.2 - 1.2 mg/dL [facility]; [facility], [facility]. Calcium [Mass/Vol] 9.8 mg/dL Normal 8.6 - 10. 4 mg/dL [facility].; [facility], [facility] Chloride [Moles/Vol] 108 mmol/L Normal 98 - 110 mmol/L [facility]; [facility], [facility]. CO2 [Moles/Vol] 25 mmol/L Normal 20 - 32 mmol/L [facility]; [facility]. Cobalamin (Vitamin B12) [Mass/Vol] 1185 pg/mL Abnormal 200 - 1100 pg/mL [facility].; [facility], [facility]. Creatinine [Mass/Vol] 0.68 mg/dL Normal 0.50 - 1.03 mg/dL [facility]; [facility], [facility]. Folate [Mass/Vol] 12.5 ng/mL Normal [facility]; [facility] GFR/1.73 sq M.predicted among non-blacks MDRD (S/P/Bld) [Vol rate/Area] 101 mL/min/{1.73_m2} Normal [facility], [facility] Glucose [Mass/Vol] 101 mg/dL Abnormal 65 - 99 mg/dL [facility].; [facility], [facility] Potassium [Moles/Vol] 3.8 mmol/L Normal 3.5 - 5.3 mmol/L [facility].; [facility] Protein [Mass/Vol] 7.3 g/dL Normal 6.1 - 8.1 g/dL [facility]; [facility], [facility] Sodium [Moles/Vol] 142 mmol/L Normal 135 - 146 mmol/L [facility]; [facility], [facility] TSH Qn 0.51 m[IU]/L Normal 0.40 - 4.50 {mIU/L} [facility]; [facility], [facility] Urea nitrogen [Mass/Vol] 10 mg/dL Normal 7 - 25 mg/dL [facility]; [facility] Laboratory - Hematology and Cell countson 12-16-2023 Basophils (Bld) [#/Vol] 0.02 10*3/uL Normal 0 - 200 {cells/uL} [facility]; [facility], [facility] Basophils/100 WBC (Bld) 0.3 % Normal [facility]; [facility] Eosinophils (Bld) [#/Vol] 0.068 10*3/uL Normal 15 - 500 {cells/uL} [facility].; [facility] Eosinophils/100 WBC (Bld) 1.0 % Normal [facility]; [facility] Erythrocyte distribution width (RBC) [Ratio] 13.0 % Normal 11.0 - 15.0 % [facility].; [facility], [facility] Hematocrit (Bld) [Volume fraction] 44.1 % Normal 35.0 - 45.0 % [facility]; [facility], [facility] Hemoglobin (Bld) [Mass/Vol] 14.4 g/dL Normal 11.7 - 15.5 g/dL [facility].; [facility], [facility] Lymphocytes (Bld) [#/Vol] 1.319 10*3/uL Normal 850 - 3900 {cells/uL} [facility], [facility].; [facility] Lymphocytes/100 WBC (Bld) 19.4 % Normal [facility].; [employer]. MCH (RBC) [Entitic mass] 31.9 pg Normal 27.0 - 33.0 pg [facility] [employer] [employer]. MCHC (RBC) [Mass/Vol] 32.7 g/dL Normal 32.0 - 36.0 g/dL [facility] [employer] [facility].; [employer], [employer]. MCV (RBC) [Entitic vol] 97.8 fL Normal 80.0 - 100.0 fL [facility] [employer] [facility].; [employer], [employer]. Monocytes (Bld) [#/Vol] 0.483 10*3/uL Normal 200 - 950 {cells/uL} [facility] [employer] [facility].; [employer]. Monocytes/100 WBC (Bld) 7.1 % Normal [facility].; [employer], [employer]. Neutrophils (Bld) [#/Vol] 4.91 10*3/uL Normal 1500 - 7800 {cells/uL} [facility] [employer].; [employer]. Neutrophils/100 WBC (Bld) 72.2 % Normal [facility] [employer] [facility].; [employer]. Platelet mean volume (Bld) [Entitic vol] 10.5 fL Normal 7.5 - 12.5 fL [facility] [employer] [facility].; [employer], [facility]. Platelets (Bld) [#/Vol] 266 10*3/uL Normal 140 - 400 [facility] [employer].; [employer], [employer]. RBC (Bld) [#/Vol] 4.51 10*6/uL Normal 3.80 - 5.1 0 {Million/uL} [employer].; [employer], [employer]. WBC (Bld) [#/Vol] 6.8 10*3/uL Normal 3.8 - 10.8 [facility] [employer] [facility].; [employer]. No Panel Informationon 12-15 BUN/CREATININE RATIO SEE NOTE: Normal 6 - 22 [facility] [employer].; [employer]. GLOBULIN 2.7 Normal 1.9 - 3.7 [employer].; [employer], [employer]. VITAMIN D,25-OH,TOTAL,IA 25 ng/mL Abnormal 30 - 100 ng/mL [facility], [facility]. CBC + DIFFon 11-13-2023 Baso # 0.02 x10EE3/UL Normal 0.00 - 0.10 [facility] Comment on above: Performed By: #### 2 20513 #### [facility],[address] [place] [address] Basophils/100 WBC (Bld) 0.2 % Normal 0.0 - 2.0 [facility] Comment on above: Performed By: #### 2 89666 #### [facility],[address] [place] [address] CBC + DIFF Normal [facility] Comment on above: Result Comment: CBC- COMPLETE BLOOD COUNT Performed By: #### 2 72455 #### [facility],[address] [place] [address] 61752 EO # 0.10 x10EE3/UL Normal 0.00 - 0.50 [facility] Comment on above: Performed By: #### 2 37213 #### [facility],[address] [place] [address] 68486 Eosinophils/100 WBC (Bld) 1.0 % Normal 0.0 - 7.0 [facility] Comment on above: Performed By: #### 2 06402 #### [facility],[address] [place] [address] 66965 Erythrocyte distribution width (RBC) [Ratio] 12.6 % Normal 12.0 - 15.6 [facility] Comment on above: Performed By: #### 2 97749 #### [facility],[address] [place] [address] Hematocrit (Bld) [Volume fraction] 45.0 % Normal 34.0 - 46.0 [facility] Comment on above: Performed By: #### 2 68420 #### [facility],[address] [place] [address] 87827 Hemoglobin (Bld) [Mass/Vol] 15.8 g/dL Normal 12.0 - 16.0 [facility] Comment on above: Performed By: #### 2 64730 #### [facility],[address] [place] [address] Lymph # 1.75 x10EE3/UL Normal 0.80 - 2.80 [facility] Comment on above: Performed By: #### 2 57514 #### [place] [address] Lymphocytes/100 WBC (Bld) 16.7 % Low 20.0 - 45.0 [facility] Comment on above: Performed By: #### 2 38550 #### [facility],[address] [place] [address] MANUAL DIFF N/A Normal [facility] Comment on above: Performed By: #### 2 85520 #### [place] [address] MCH (RBC) [Entitic mass] 33 pg Normal 27 - 33 [facility] Comment on above: Performed By: #### 2 68520 #### [place] [address] MCHC 35 X10 3 Normal 32 - 36 [facility] Comment on above: Performed By: #### 2 88735 #### [place] [address] MCV (RBC) [Entitic vol] 94 fL Normal 80 - 99 [facility] Comment on above: Performed By: #### 2 44791 #### [place] [address] Bent # 0.75 x10EE3/UL Normal 0.20 - 1.00 [facility] Comment on above: Performed By: #### 2 81867 #### [place] [address] MONOS % 7.2 % Normal 0.0 - 10.0 [facility] Comment on above: Performed By: #### 2 82699 #### [facility],[address] [place] [address] Morphology Simon (Bld) [Interp] N/A Normal [facility] Comment on above: Performed By: #### 2 34509 #### [facility],[address] [place] [address] Neut # 7.87 x10EE3/UL High 1.50 - 7.10 [facility] Comment on above: Performed By: #### 2 23246 #### [place] [address] Neutrophils/100 WBC (Bld) 75.0 % Normal 46.0 - 76.0 [facility] Comment on above: Performed By: #### 2 90501 #### [place] [address] PLATELET 269 x10EE3/UL Normal 150 - 450 [facility] Comment on above: Performed By: #### 2 22991 #### [place] [address] Platelet mean volume (Bld) [Entitic vol] 7.6 fL Normal 6.6 - 10.5 [facility] Comment on above: Result Comment: AUTO MATED DIFFERENTIAL Performed By: #### 2 28994 #### [facility],[address] [place] [address] RBC 4.78 x 10EE6/UL Normal 4.10 - 5.30 [facility] Comment on above: Performed By: #### 2 49134 #### [place] [address] WBC 10.5 x 10EE3/UL Normal 4.5 - 10.8 [facility] Comment on above: Performed By: #### 2 72178 #### [facility],[address] [place] [address] CHEST 2 VIEWSon 11-13-2023 CHEST 2 VIEWS [place] [address] Patient: ELLIE WALKER Phone#: : 1965 Age: 58 Gender: F Pt. Type: ER Account: [id number] Location: 05 Ordering: KERWIN ALVARADO Exam Date: 11/13/2023/16:06 Family Phys: PRISCILA MCLEOD Charge Code: [id number] Physician: Barron Order #: [id number] Dose#: PROCEDURE: X-RAY CHEST 2 VIEWS COMPARISON: [facility], XR, CHEST PA/LAT, 02/27/2017, 15:58. INDICATIONS: Cough. FINDINGS: LUNGS: Normal. No significant pulmonary parenchymal abnormalities. VASCULATURE: Normal. Unremarkable pulmonary vasculature. CARDIAC: Normal. No cardiac silhouette abnormality or cardiomegaly. MEDIASTINUM: Normal. No visible mass or adenopathy. PLEURA: Normal. No effusion or pleural thickening. BONES: Normal. No fracture or visible bony lesion. OTHER: Negative. CONCLUSION: No acute disease. No significant change has occurred. Dictated by: Maddie Wilson MD on 11/13/2023 at 17:43 Approved by: Maddie Wilson MD on 11/13/2023 at 17:43 Normal [facility] CMP with eGFRon 11-13-2023 AGE 58 years Normal [facility] Comment on above: Performed By: #### 2 42101 #### [facility],[address] [place] [address] 27247 Albumin [Mass/Vol] 4.3 g/dL Normal 3.4 - 5.0 [facility] Comment on above: Performed By: #### 2 26803 #### [facility],[address] [place] [address] 21582 Albumin/Globulin [Mass ratio] 1.3 {ratio} Normal 0.9 - 1.6 [facility] Comment on above: Performed By: #### 2 22407 #### [facility],[address] [place] [address] 09230 ALK PHOS 117 U/L High 46 - 116 [facility] Comment on above: Performed By: #### 2 64805 #### [facility],[address] [place] [address] 52616 ALT [Catalytic activity/Vol] 29 U/L Normal 16 - 63 [facility] Comment on above: Performed By: #### 2 17345 #### [facility],[address] [place] [address] 53415 Anion gap [Moles/Vol] 15 mmol/L Normal 10 - 20 [facility] Comment on above: Performed By: #### 2 40530 #### [facility],[address] [place] [address] 22235 AST [Catalytic activity/Vol] 15 U/L Normal 13 - 39 [facility] Comment on above: Performed By: #### 2 24969 #### [facility],[address] [place] [address] 55155 B/C RATIO 16 ratio Normal 0 - 30 [facility] Comment on above: Performed By: #### 2 36809 #### [facility],[address] [place] [address] 38096 Bilirubin [Mass/Vol] 0.7 mg/dL Normal 0.2 - 1.0 [facility] Comment on above: Performed By: #### 2 40071 #### [facility],[address] [place] [address] 59783 Calcium [Mass/Vol] 10.2 mg/dL High 8.5 - 10.1 [facility] Comment on above: Performed By: #### 2 03282 #### [facility],[address] [place] [address] 92082 Chloride [Moles/Vol] 103 mmol/L Normal 98 - 107 [facility] Comment on above: Performed By: #### 2 45288 #### [facility],[address] [place] [address] 52042 CMP with eGFR Normal [facility] Comment on above: Result Comment: COMP REHENSIVE METABOLIC PANEL Performed By: #### 2 95168 #### [facility],[address] [place] [address] 58826 CO2 [Moles/Vol] 27.4 mmol/L Normal 21.0 - 32.0 [facility] Comment on above: Performed By: #### 2 53449 #### [facility],[address] [place] [address] Creatinine [Mass/Vol] 0.77 mg/dL Normal 0.55 - 1.02 [facility] Comment on above: Performed By: #### 2 51908 #### [facility],[address] [place], [place] [address] GFR/1.73 sq M.predicted among non-blacks MDRD (S/P/Bld) [Vol rate/Area] mL/min/{1.73_m2} Normal 60 - 999 [facility] Comment on above: Performed By: #### 2 19776 #### [facility],[address] [place] [address] Result Comment: ACCO RDING TO THE NATIONAL KIDNEY DISEASE EDUCATION PROGRAM(NKDE), A NORMAL eGFR IS A VALUE GREATER THAN OR EQUAL TO 60 ML/MIN/1.73 SQ METERS. CHRONIC KIDNEY DISEASE: <60mL/MIN/1.73 SQ METERS KIDNEY FAILURE: <15mL/MIN/1.73 SQ METERS THIS TEST SHOULD ONLY BE USED FOR PATIENTS 18 YEARS OF AGE AND OLDER. Globulin (S) [Mass/Vol] 3.4 g/dL Normal 1.5 - 3.8 [facility] Comment on above: Performed By: #### 2 41035 #### [facility],[address] [place] [address] 52371 Glucose [Mass/Vol] 113 mg/dL High 74 - 106 [facility] Comment on above: Performed By: #### 2 19179 #### [facility],[address] [place] [address] 84694 Potassium [Moles/Vol] 3.4 mmol/L Low 3.5 - 5.1 [facility] Comment on above: Performed By: #### 2 88414 #### [facility],[address] [place] [address] 25312 Protein [Mass/Vol] 7.7 g/dL Normal 6.4 - 8.2 [facility] Comment on above: Performed By: #### 2 16963 #### [facility],[address] [place] [address] 91957 Sodium [Moles/Vol] 142 mmol/L Normal 136 - 145 [facility] Comment on above: Performed By: #### 2 [id number] #### [facility],[address] [place] [address]262 Urea nitrogen [Mass/Vol] 12 mg/dL Normal 7 - 18 [facility] Comment on above: Performed By: #### 2 [id number] #### [facility],[address] [place] [address]506 CORONAVIRUS (SARS) ANTIGEN T ESTon 11-13-2023 EXTERNAL QC DONE? YES Normal [facility] Comment on above: Performed By: #### 2 [id number] #### [facility],[address] [place] [address] 93545 INTERNAL CONTROL PASS Normal [facility] Comment on above: Performed By: #### 2 [id number] #### [facility],[address] [place] [address] 47240 SARS ANTIGEN Negative Normal NORMAL: NEGATIVE [facility] Comment on above: Performed By: #### 2 [id number] #### [facility],[address] [place] [address] 72577 SEND TO ? NO Normal [facility] Comment on above: Result Comment: SARS -CoV-2 THIS TEST IS BEING USED UNDER THE FDA EUA PROCEDURE. THIS ASSAY HAS BEEN VALIDATED AT [facility] FOR USE WITH NASAL AND NASOPHARYNGEAL SWAB SPECIMENS. INTERPRETIVE DATA TEST RESULTS SHOULD ALWAYS BE CONSIDERED IN THE CONTEXT OF CLINICAL OBSERVATIONS AND EPIDEMIOLOGICAL DATA IN MAKING FINAL DIAGNOSIS AND PATIENT MANAGEMENT DECISIONS. PATIENT MANAGEMENT SHOULD FOLLOW CURRENT CDC GUIDELINES. THE RAHEL SARS ANTIGEN ADAM DOES NOT DIFFERENTIATE BETWEEN SARS-CoV & SARS-CoV-2. A POSITIVE TEST RESULT INDICATES THE PRESENCE OF SARS-CoV-2 NUCLEOCAPSID PROTEIN ANTIGEN, AND THE PATIENT IS INFECTED WITH THE VIRUS AND PRESUMED TO BE CONTAGIOUS. A NEGATIVE TEST RESULT FOR THIS TEST MEANS THAT SARS-CoV-2 NUCLEOCAPSID PROTEIN ANTIGEN WAS NOT PRESENT IN THE SPECIMEN ABOVE THE LIMIT OF DETECTION. HOWEVER, A NEGATIVE RESULT DOES NOT RULE OUT COVID-19 AND SHOULD NOT BE USED THE SOLE BASIS FOR TREATMENT OR PATIENT MANAGEMENT DECISIONS. A NEGATIVE RESULT DOES NOT EXCLUDE THE POSSIBILITY OF COVID-19. NEGATIVE RESULTS, FROM PATIENTS WITH SYMPTOM ONSET BEYOND FIVE DAYS, SHOULD BE TREATED PRESUMPTIVE AND CONFIRMATION WITH A MOLECULAR ASSAY, IF NECESSARY, FOR PATIENT MANAGEMENT, MAY BE PERFORMED. WHEN DIAGNOSTIC TESTING IS NEGATIVE, THE POSSIBLILTY OF A FALSE NEGATIVE RESULT SHOULD BE CONSIDERED IN THE CONTEXT OF A PATIENT'S RECENT EXPOSURES AND THE PRESENCE OF CLINICAL SIGNS AND SYMPTOMS CONSISTENT WITH COVID-19. THE POSSIBILITY OF A FALSE NEGATIVE RESULT SHOULD ESPECIALLY BE CONSIDERED IF THE PATIENT'S RECENT EXPOSURES OR CLINICAL PRESENTATION INDICATE THAT COVID-19 IS LIKELY, AND DIAGNOSTIC TESTS FOR OTHER CAUSES OF ILLNESS (e.g., OTHER RESPIRATORY ILLNESS) ARE NEGATIVE. IF COVID-19 IS STILL SUSPECTED BASED ON EXPOSURE HISTORY TOGETHER WITH OTHER CLINICAL FINDINGS, RE-TESTING SHOULD BE CONSIDERED BY HEALTHCARE PROVIDERS IN CONSULTATION WITH PUBLIC HEALTH AUTHORITIES. Performed By: #### 2 [id number] #### [facility],[address] [place] [address] CT BRAIN W/O CONTRASTon 09-0 CT BRAIN W/O CONTRAST [place] [address] Patient: ELLIE WALKER Phone#: : 1965 Age: 58 Gender: F Pt. Type: ER Account: [id number] Location: [facility] Ordering: KERWIN ALVARADO Exam Date: 11/13/2023/16:01 Family Phys: PRISCILA MCLEOD Charge Code: [id number] Physician: Barron Order #: [id number] Dose#: 57.50 mGy PROCEDURE: CT BRAIN WITHOUT CONTRAST COMPARISON: None. INDICATIONS: Altered sensory function. TECHNIQUE: CT images were obtained without contrast material. All CT scans at this facility use dose modulation, iterative reconstruction, and/or weight based dosing when appropriate to reduce radiation dose to as low as reasonably achievable. IV CONTRAST: No IV contrast used,0ml TOTAL DOSE: 57.50 CTDIvol(mGy) FINDINGS: CEREBRUM: No edema, hemorrhage, mass, acute infarction, or inappropriate atrophy. CEREBELLUM: No edema, hemorrhage, mass, acute infarction, or inappropriate atrophy. BRAINSTEM: No edema, hemorrhage, mass, acute infarction, or inappropriate atrophy. CSF SPACES: Ventricles, cisterns, and sulci are appropriate for age. No hydrocephalus, subarachnoid hemorrhage, or mass. SKULL: No mass or other significant visible lesion. SINUSES: Limited views demonstrate no significant mucosal thickening or fluid. ORBITS: Limited views are unremarkable. OTHER: Negative. CONCLUSION: 1. There is no evidence of acute intracranial abnormality. Dictated by: Maddie Wilson MD on 11/13/2023 at 16:15 Approved by: Maddie Wilson MD on 11/13/2023 at 16:16 Normal [facility] URINALYSISon 11-13-2023 Amorphous NONE Normal [facility] Comment on above: Performed By: #### 2 [id number] #### [place] [address] Bacteria NONE Normal [facility] Comment on above: Performed By: #### 2 35349 #### [facility],[address] [place] [address] Bilirubin Ql (U) Negative Normal NORMAL: NEGATIVE [facility] Comment on above: Performed By: #### 2 58957 #### [facility],[address] [place] [address] Casts NONE Normal [facility] Comment on above: Performed By: #### 2 15177 #### [facility],[address],[place] [address] Clarity (U) clear Normal NORMAL: CLEAR [facility] Comment on above: Performed By: #### 2 72735 #### [facility],[address] [place] [address] 92870 Color (U) yellow Normal NORMAL: YELLOW [facility] Comment on above: Performed By: #### 2 87418 #### [facility],[address] [place] [address] 25330 Crystals LM Nom (Urine sed) NONE Normal [facility] Comment on above: Performed By: #### 2 98704 #### [facility],[address] [place], [place] [id number] Epi Cells OCC Normal [facility] Comment on above: Performed By: #### 2 37955 #### [facility],[address] [place] [address] 25707 Glucose Ql (U) NORM Normal NORMAL: NORMAL [facility] Comment on above: Performed By: #### 2 05384 #### [facility],[address] [place] [address] 10197 Hemoglobin Ql (U) Negative Normal NORMAL: NEGATIVE [facility] Comment on above: Performed By: #### 2 79052 #### [facility],[address] [place] [address] 72627 Ketone Negative Normal NORMAL: NEGATIVE [facility] Comment on above: Performed By: #### 2 51526 #### [facility],[address] [place] [address] 02059 Leukocytes 25 Abnormal NORMAL: NEGATIVE [facility] Comment on above: Performed By: #### 2 74652 #### [facility],[address] [place] [address] 91995 Mucous NONE Normal [facility] Comment on above: Performed By: #### 2 79069 #### [facility],[address] [place] [address] 77051 Nitrite Ql (U) Negative Normal NORMAL: NEGATIVE [facility] Comment on above: Performed By: #### 2 51541 #### [facility],[address] [place] [address] pH (U) 6 [pH] Normal NORMAL: 5.0-8.0 [facility] Comment on above: Performed By: #### 2 16217 #### [facility],[address] [place] [address] Protein Ql (U) Negative Normal NORMAL: NEGATIVE [facility] Comment on above: Performed By: #### 2 60979 #### [facility],[address] [place] [address] Rbc NONE Normal 0-3/hpf [facility] Comment on above: Performed By: #### 2 04527 #### [facility],[address] [place] [address] Sp [place] 1.015 Normal NORMAL: 1.010-1.030 [facility] Comment on above: Performed By: #### 2 91491 #### [facility],[address] [place] [address] Specimen Type Clean catch Normal [facility] Comment on above: Performed By: #### 2 17328 #### [facility],[address] [place] [address] Urinalysis dipstick W Reflex Microscopic panel (U) SEE BELOW Normal [facility] Comment on above: Result Comment: MICR OSCOPIC Performed By: #### 2 42606 #### [facility],[address] [place] [address] Urobilinog NORM Normal NORMAL: NORMAL [facility] Comment on above: Performed By: #### 2 16948 #### [facility],[address] [place] [address] Wbc 1-5 Normal 0-5/hpf [facility] Comment on above: Performed By: #### 2 26339 #### [facility],[address] [place] [address] 48520 Yeast NONE Normal [facility] Comment on above: Performed By: #### 2 95016 #### [facility],[address] [place], [place] [id number] TSHon 10-04-2023 TSH Qn 1.02 m[IU]/L Normal 0.40-4.50 [facility] Comment on above: Performed By: #### 8 99 #### [facility] [address], [address] [place] [id number] Creative Engagement Director: Armani Oakes MD Laboratory - Chemistry and C hemistry - challengeon 10-03-2023 TSH Qn 1.02 m[IU]/L Normal 0.40 - 4.50 {mIU/L} [facility], [facility].; [facility]. Laboratory - Chemistry and C hemistry - challengeon 07-22-2022 TSH Qn 0.76 m[IU]/L Normal 0.40 - 4.50 {mIU/L} [facility], [facility].; [facility]. Laboratory - Chemistry and C hemistry - challengeon 03-26-2021 TSH Qn 0.70 m[IU]/L Normal [facility], [facility].; [facility], [facility]. Laboratory - Chemistry and C hemistry - challengeon 06-04-2020 TSH Qn 0.78 m[IU]/L Normal [facility], [facility].; [facility], [facility]. Laboratory - Chemistry and C hemistry - challengeon 02-08-2019 Albumin [Mass/Vol] 4.5 g/dL Normal 3.6 - 5.1 g/dL [facility], [facility].; [facility]. Albumin/Globulin [Mass ratio] 1.8 {ratio} Normal 1.0 - 2.5 [facility], [facility].; [facility] [employer] ALP [Catalytic activity/Vol] 93 U/L Normal 33 - 130 U/L [facility], [facility].; [place] [employer] ALT [Catalytic activity/Vol] 21 U/L Normal 6 - 29 U/L [facility], [facility].; [facility] AST [Catalytic activity/Vol] 19 U/L Normal 10 - 35 U/L [facility].; [facility], [facility] Bilirubin [Mass/Vol] 0.7 mg/dL Normal 0.2 - 1.2 mg/dL [facility].; [facility], [facility] Calcium [Mass/Vol] 9.4 mg/dL Normal 8.6 - 10. 4 mg/dL [facility]; [facility], [facility] Chloride [Moles/Vol] 105 mmol/L Normal 98 - 110 mmol/L [facility]; [facility], [facility] Cholesterol [Mass/Vol] 261 mg/dL Abnormal [facility]; [facility] Cholesterol in HDL [Mass/Vol] 87 mg/dL Normal [facility]; [facility], [facility] Cholesterol in LDL [Mass/Vol] 144 mg/dL Abnormal [facility]; [facility], [facility] CO2 [Moles/Vol] 32 mmol/L Normal 20 - 32 mmol/L [facility].; [facility], [facility] Creatinine [Mass/Vol] 0.63 mg/dL Normal 0.50 - 1.05 mg/dL [facility].; [facility], [facility]. GFR/1.73 sq M.predicted among blacks MDRD (S/P/Bld) [Vol rate/Area] 119 mL/min/{1.73_m2} Normal [facility].; [facility], [facility] Glucose [Mass/Vol] 84 mg/dL Normal 65 - 99 mg/dL [facility].; [facility], [facility] Potassium [Moles/Vol] 4.0 mmol/L Normal 3.5 - 5.3 mmol/L [facility].; [facility], [facility]. Protein [Mass/Vol] 7.0 g/dL Normal 6.1 - 8.1 g/dL [facility]; [facility], [facility] Sodium [Moles/Vol] 141 mmol/L Normal 135 - 146 mmol/L [facility], [facility].; [facility] Triglyceride [Mass/Vol] 163 mg/dL Abnormal [facility]; [facility] TSH Qn 0.75 m[IU]/L [facility]; [facility] Urea nitrogen [Mass/Vol] 12 mg/dL Normal 7 - 25 mg/dL [facility]; [place] [email or web address] [facility] No Panel Informationon 02-08 BUN/CREATININE RATIO NOT APPLICABLE Normal 6 - 22 [facility]; [facility] CHOL/HDLC RATIO 3.0 Normal [facility]; [facility] eGFR NON-AFR. HONDURAN 102 Normal [facility]; [facility] GLOBULIN 2.5 Normal 1.9 - 3.7 [facility]; [facility] NON HDL CHOLESTEROL 174 Abnormal [facility]; [facility] Laboratory - Chemistry and C hemistry - challengeon 03-17-2018 TSH Qn 0.52 m[IU]/L Normal 0.40 - 4.50 {mIU/L} [facility].; [facility]. Laboratory - Chemistry and C hemistry - challengeon 03-16-2017 TSH Qn 1.22 m[IU]/L Normal 0.40 - 4.50 {mIU/L} [facility].; [facility]. Laboratory - Chemistry and C hemistry - challengeon 03-09-2016 TSH Qn 0.58 m[IU]/L Normal 0.40 - 4.50 {mIU/L} [facility].; [facility]. Laboratory - Chemistry and C hemistry - challengeon 03-03-2015 TSH Qn 0.41 m[IU]/L Normal 0.40 - 4.50 {mIU/L} [facility].; [employer]. Laboratory - Chemistry and C hemistry - challengeon 02-04-2014 TSH Qn 1.05 m[IU]/L Normal 0.40 - 4.50 {mIU/L} [facility].; [facility] Laboratory - Chemistry and C hemistry - challengeon 01-20-2013 TSH Qn 0.89 m[IU]/L Normal 0.40 - 4.50 {mIU/L} [facility].; [facility] Laboratory - Chemistry and C hemistry - challengeon 10-20-2011 TSH Qn 0.74 m[IU]/L Normal 0.40 - 4.50 {mIU/L} [facility].; [facility] Laboratory - Chemistry and C hemistry - challengeon 11-05-2010 TSH Qn 0.47 m[IU]/L Normal 0.40 - 4.50 {mIU/L} [facility].; [facility] Laboratory - Chemistry and C hemistry - challengeon 12-11-2009 TSH Qn 0.82 m[IU]/L Normal 0.40 - 4.50 {mIU/L} [facility].; [facility], [facility] Vital Signs Date Time Vital Sign Value Performing Clinician Facility 12-16-2023 09:41-0400 Body height 173.99 cm Sukhwinder Rodriguez [facility].; [facility] 12-16-2023 09:41-0400 Body mass index (BMI) [Ratio] 34.91 kg/m2 Sukhwinder Michael [facility].; [facility] 12-16-2023 09:41-0400 Body surface area Derived from formula 2.19 m2 Sukhwinder Rodriguez [facility].; [facility] 12-16-2023 09:41-0400 Body weight 105.69 kg Sukhwinder Rodriguez [facility].; [facility] 12-16-2023 09:41-0400 Diastolic blood pressure 85 mm[Hg] Sukhwinder Michael [facility].; [facility], [facility]. Comment on above: Patient Position: Sitting; Cuff Location : Left Arm; Cuff Size: Standard 12-16-2023 09:41-0400 Heart rate 98 /min Sukhwinder Michael [facility], [facility].; [employer]. Comment on above: Pattern: Regular 12-16-2023 09:41-0400 Systolic blood pressure 171 mm[Hg] [facility]hwinder Rodriguez [facility] [employer]. Comment on above: Patient Position: Sitting; Cuff Location : Left Arm; Cuff Size: Standard 11-30-2023 15:48-0400 Body height 173.99 cm Chasity Tanisha HEAD TRACK COACH Work Phone: [facility] [employer].; [employer]. 11-30-2023 15:48-0400 Body mass index (BMI) [Ratio] 35.06 kg/m2 Chasity Tanisha HEAD TRACK COACH Work Phone: [employer]; [place] [employer]. 11-30-2023 15:48-0400 Body surface area Derived from formula 2.2 m2 Chasity Tanisha HEAD TRACK COACH Work Phone: [employer]; [employer]. 11-30-2023 15:48-0400 Body weight 106.14 kg Chasity Tanisha HEAD TRACK COACH Work Phone: [employer]; [employer]. 11-30-2023 15:48-0400 Diastolic blood pressure 90 mm[Hg] Chasity Tanisha HEAD TRACK COACH Work Phone: [employer]; [employer]. Comment on above: Patient Position: Sitting; Cuff Location : Left Arm; Cuff Size: Large 11-30-2023 15:48-0400 Heart rate 94 /min Chasity Tanisha HEAD TRACK COACH Work Phone: [employer].; [employer]. Comment on above: Pattern: Regular 11-30-2023 15:48-0400 Systolic blood pressure 158 mm[Hg] Chasity Tanisha HEAD TRACK COACH Work Phone: [employer].; [employer]. Comment on above: Patient Position: Sitting; Cuff Location : Left Arm; Cuff Size: Large 11-14-2023 13:15-0400 Body height 173.99 cm Beckie Knox HEAD TRACK COACH [facility] 11-14-2023 13:15-0400 Body mass index (BMI) [Ratio] 35.66 kg/m2 Beckie Knox [facility] 11-14-2023 13:15-0400 Body surface area Derived from formula 2.21 m2 Beckie Knox [facility] 11-14-2023 13:15-0400 Body weight 107.96 kg Beckie Knox [facility], [facility]. 11-14-2023 13:15-0400 Diastolic blood pressure 90 mm[Hg] Beckie Knox [facility] Comment on above: Patient Position: Sitting; Cuff Location : Left Arm; Cuff Size: Large 11-14-2023 13:15-0400 Heart rate 76 /min Beckie Knox [facility] Comment on above: Pattern: Regular 11-14-2023 13:15-0400 Systolic blood pressure 145 mm[Hg] Beckie Knox [facility] Comment on above: Patient Position: Sitting; Cuff Location : Left Arm; Cuff Size: Large 11-11-2023 10:40-0400 Body height 173.99 cm Sukhwinder Rodriguez HEAD TRACK COACH [facility] 11-11-2023 10:40-0400 Body mass index (BMI) [Ratio] 35.96 kg/m2 Sukhwinder Michael [facility] 11-11-2023 10:40-0400 Body surface area Derived from formula 2.22 m2 Sukhwinder Michael HEAD TRACK COACH [facility] 11-11-2023 10:40-0400 Body weight 108.86 kg Sukhwinder Michael HEAD TRACK COACH [facility]. 11-11-2023 10:40-0400 Diastolic blood pressure 87 mm[Hg] Sukhwinder Rodriguez [facility].; [facility], [facility]. Comment on above: Patient Position: Sitting; Cuff Location : Left Arm; Cuff Size: Standard 11-11-2023 10:40-0400 Heart rate 74 /min Sukhwinder Rodriguez [facility], [facility].; [facility], [facility]. Comment on above: Pattern: Regular 11-11-2023 10:40-0400 Inhaled oxygen concentration 21 % Sukhwindermal Rodriguez [facility].; [facility], [facility]. Comment on above: Room air 11-11-2023 10:40-0400 SaO2% (BldA) [Mass fraction] 97 % Sukhwinder Michale [facility].; [facility], [facility]. 11-11-2023 10:40-0400 Systolic blood pressure 148 mm[Hg] Sukhwinder Rodriguez [facility].; [facility] [employer]. Comment on above: Patient Position: Sitting; Cuff Location : Left Arm; Cuff Size: Standard 10-10-2023 10:28-0400 Body height 173.99 cm Priscila Mcleod MD Work Phone: [facility].; [facility], [facility]. 10-10-2023 10:28-0400 Body mass index (BMI) [Ratio] 36.26 kg/m2 Priscila Mcleod MD Work Phone: [facility].; [facility]. 10-10-2023 10:28-0400 Body surface area Derived from formula 2.23 m2 Priscila Mcleod MD Work Phone: [facility].; [facility]. 10-10-2023 10:28-0400 Body weight 109.77 kg Priscila Mcleod MD Work Phone: [facility].; [employer], [employer]. 10-10-2023 10:28-0400 Diastolic blood pressure 82 mm[Hg] Priscila Mcleod MD Work Phone: [facility].; [employer]. Comment on above: Patient Position: Sitting; Cuff Location : Left Arm; Cuff Size: Standard 10-10-2023 10:28-0400 Heart rate 71 /min Priscila Mcleod MD Work Phone: [facility] [employer]. Comment on above: Pattern: Regular 10-10-2023 10:28-0400 Systolic blood pressure 132 mm[Hg] Priscila Mcleod MD Work Phone: [facility] [employer]. Comment on above: Patient Position: Sitting; Cuff Location : Left Arm; Cuff Size: Standard 09-09-2023 15:17-0400 Body height 173.99 cm Priscila Mcleod MD Work Phone: [facility] [employer]. 09-09-2023 15:17-0400 Body mass index (BMI) [Ratio] 36.11 kg/m2 Priscila Mcleod MD Work Phone: [facility] [facility].; [employer] [facility]. 09-09-2023 15:17-0400 Body surface area Derived from formula 2.22 m2 Priscila Mcleod MD Work Phone: [facility] [employer]. 09-09-2023 15:17-0400 Body temperature 981 [degF] Priscila Mcleod MD Work Phone: [facility] [employer]. 09-09-2023 15:17-0400 Body weight 109.32 kg Priscila Mcleod MD Work Phone: [facility] [employer].; [employer]. 09-09-2023 15:17-0400 Diastolic blood pressure 84 mm[Hg] Priscila Mcleod MD Work Phone: [facility] [employer]. Comment on above: Patient Position: Sitting; Cuff Location : Left Arm; Cuff Size: Standard 09-09-2023 15:17-0400 Heart rate 101 /min Priscila Mcleod MD Work Phone: [facility], [employer] [facility]. Comment on above: Pattern: Regular 09-09-2023 15:17-0400 Systolic blood pressure 155 mm[Hg] Priscila Mcleod MD Work Phone: [facility], [employer]. Comment on above: Patient Position: Sitting; Cuff Location : Left Arm; Cuff Size: Standard 07-27-2022 14:48-0400 Body weight 112.49 kg Sukhwinder Rodriguez LPN [facility], [facility].; [facility], [employer]. 07-27-2022 14:48-0400 Diastolic blood pressure 84 mm[Hg] Sukhwinder Rodriguez LPN [facility], [employer], [employer]. Comment on above: Patient Position: Sitting; Cuff Location : Left Arm; Cuff Size: Standard 07-27-2022 14:48-0400 Heart rate 77 /min Sukhwinder Rodriguez LPN [facility], [employer]. Comment on above: Pattern: Regular 07-27-2022 14:48-0400 Systolic blood pressure 130 mm[Hg] Sukhwinder Rodriguez LPN [facility], [employer].; [employer], [employer]. Comment on above: Patient Position: Sitting; Cuff Location : Left Arm; Cuff Size: Standard 04-02-2021 10:52-0500 Body height 173.99 cm Suze Fontaine LPN [facility], Inc.; [facility], [facility]. 04-02-2021 10:52-0500 Body mass index (BMI) [Ratio] 36.41 kg/m2 Suze Fontaine LPN [facility], [facility].; [facility], [facility]. 04-02-2021 10:52-0500 Body surface area Derived from formula 2.23 m2 Suze Fontaine LPN [facility], [facility].; [facility], [facility]. 04-02-2021 10:52-0500 Body weight 110.22 kg Suze Fontaine LPN [facility], [facility].; [facility], [employer]. 04-02-2021 10:52-0500 Diastolic blood pressure 74 mm[Hg] Suze Fontaine LPN [facility], Inc.; [facility] [employer]. Comment on above: Patient Position: Sitting; Cuff Location : Left Arm; Cuff Size: Standard 04-02-2021 10:52-0500 Heart rate 73 /min Suze Fontaine LPN [facility], [facility].; [facility], [employer]. Comment on above: Pattern: Regular 04-02-2021 10:52-0500 Systolic blood pressure 117 mm[Hg] [facility].; [employer], [employer]. Comment on above: Patient Position: Sitting; Cuff Location : Left Arm; Cuff Size: Standard 06-11-2020 07:42-0400 Body height 173.99 cm ShaniquaWendy Knox LPN [facility], [facility].; [facility], [employer]. 06-11-2020 07:42-0400 Body mass index (BMI) [Ratio] 34.91 kg/m2 ShaniquaWendy Somersey ZEB [facility], Inc.; [facility], [employer]. 06-11-2020 07:42-0400 Body surface area Derived from formula 2.19 m2 ShaniquaWendy Knox LPN [facility], Inc.; [facility] 06-11-2020 07:42-0400 Body weight 105.69 kg Beckie Nguyen [place] Z[employer] [facility], [facility].; [facility], [facility] 06-11-2020 07:42-0400 Diastolic blood pressure 83 mm[Hg] ShaniquaWendy Somersey ZEB [facility], Inc.; [facility], [employer]. Comment on above: Patient Position: Sitting; Cuff Location : Left Arm; Cuff Size: Large 06-11-2020 07:42-0400 Heart rate 80 /min Beckie Nguyen Abilio ZEB [facility], Inc.; [employer], [employer]. Comment on above: Pattern: Regular 06-11-2020 07:42-0400 Systolic blood pressure 122 mm[Hg] Beckie Nguyen [place] Z[employer] [facility], [employer].; [employer], [employer]. Comment on above: Patient Position: Sitting; Cuff Location : Left Arm; Cuff Size: Large 02-14-2019 09:47-0500 Body height 173.99 cm Beckie Knox LPN [facility], [facility].; [employer] 02-14-2019 09:47-0500 Body mass index (BMI) [Ratio] 33.86 kg/m2 Beckie Knox LPN [facility], [facility].; [employer] 02-14-2019 09:47-0500 Body surface area Derived from formula 2.16 m2 Beckie Knox [employer] [facility], [facility].; [employer] 02-14-2019 09:47-0500 Body weight 102.51 kg Beckie Knox LPN [employer], [employer] 02-14-2019 09:47-0500 Diastolic blood pressure 79 mm[Hg] Beckie Knox LPN [facility], [facility].; [employer] Comment on above: Patient Position: Sitting; Cuff Location : Left Arm; Cuff Size: Large 02-14-2019 09:47-0500 Heart rate 77 /min Beckie Knox LPN [facility], [facility].; [employer] Comment on above: Pattern: Regular 02-14-2019 09:47-0500 Systolic blood pressure 124 mm[Hg] Beckie Knox LPN [facility] [facility], [facility].; [employer] Comment on above: Patient Position: Sitting; Cuff Location : Left Arm; Cuff Size: Large 03-22-2018 07:26-0500 Body height 173.99 cm Beckie Knox LPN [facility], [facility].; [employer] 03-22-2018 07:26-0500 Body mass index (BMI) [Ratio] 32.36 kg/m2 Beckie Knox [employer] [facility], [facility].; [employer] 03-22-2018 07:26-0500 Body surface area Derived from formula 2.12 m2 Beckie Knox [employer] [facility].; [employer] 03-22-2018 07:26-0500 Body weight 97.98 kg Beckie Knox LPN [employer] 03-22-2018 07:26-0500 Diastolic blood pressure 77 mm[Hg] Beckie Knox LPN [employer]. Comment on above: Patient Position: Sitting; Cuff Location : Left Arm; Cuff Size: Large 03-22-2018 07:26-0500 Heart rate 69 /min Beckie Knox LPN [employer] Comment on above: Pattern: Regular 03-22-2018 07:26-0500 Systolic blood pressure 124 mm[Hg] Beckie Knox LPN [employer] Comment on above: Patient Position: Sitting; Cuff Location : Left Arm; Cuff Size: Large 09-05-2017 14:20-0400 Body height 173.99 cm Alma Hayward RN [facility], [facility].; [employer] 09-05-2017 14:20-0400 Body mass index (BMI) [Ratio] 31.47 kg/m2 Alma Hayward RN [facility], [facility].; [employer] 09-05-2017 14:20-0400 Body surface area Derived from formula 2.1 m2 Alma Hayward RN [employer], [employer] 09-05-2017 14:20-0400 Body weight 95.26 kg Alma Hayward RN [employer], [employer], [employer] 09-05-2017 14:20-0400 Diastolic blood pressure 82 mm[Hg] Alma Hayward RN [employer], [employer]. Comment on above: Patient Position: Sitting; Cuff Location : Left Arm; Cuff Size: Standard 09-05-2017 14:20-0400 Heart rate 86 /min Alma Hayward RN [employer], [employer].; [employer]. Comment on above: Pattern: Regular 09-05-2017 14:20-0400 Systolic blood pressure 135 mm[Hg] Alma Hayward RN [employer], [employer]. Comment on above: Patient Position: Sitting; Cuff Location : Left Arm; Cuff Size: Standard 03-16-2017 07:41-0500 Body height 173.99 cm Beckie Knox [employer] [facility], Inc.; [employer] 03-16-2017 07:41-0500 Body mass index (BMI) [Ratio] 32.21 kg/m2 Beckie Knox [employer] [facility], Inc.; [employer] 03-16-2017 07:41-0500 Body surface area Derived from formula 2.12 m2 Beckie Knox [employer] [facility].; [employer] 03-16-2017 07:41-0500 Body weight 97.52 kg Beckie Knox [employer] [facility], [facility].; [employer], [employer]. 03-16-2017 07:41-0500 Diastolic blood pressure 84 mm[Hg] Beckie Knox [employer] [facility], Inc.; [employer], [employer] Comment on above: Patient Position: Sitting; Cuff Location : Left Arm; Cuff Size: Large 03-16-2017 07:41-0500 Heart rate 98 /min Beckie Knox [employer] [facility], [facility].; [employer], [employer]. Comment on above: Pattern: Regular 03-16-2017 07:41-0500 Systolic blood pressure 134 mm[Hg] Beckie Knox [employer] [facility], [facility].; [employer] Comment on above: Patient Position: Sitting; Cuff Location : Left Arm; Cuff Size: Large 03-12-2016 08:00-0500 Body weight 97.52 kg Prachi Palmer LPN [facility], [facility].; [employer] 03-12-2016 08:00-0500 Diastolic blood pressure 68 mm[Hg] Prachi Palmer [employer] [facility], [facility].; [employer], [employer]. Comment on above: Patient Position: Sitting; Cuff Location : Left Arm; Cuff Size: Standard 03-12-2016 08:00-0500 Heart rate 84 /min Prachi Palmer LPN [facility], [facility].; [employer], [employer]. Comment on above: Pattern: Regular 03-12-2016 08:00-0500 Systolic blood pressure 116 mm[Hg] Prachi Palmer LPN [facility], Inc.; [employer], [employer]. Comment on above: Patient Position: Sitting; Cuff Location : Left Arm; Cuff Size: Standard 06-16-2015 08:44-0400 Body height 173.99 cm Alma Murray LPN [facility], Inc.; [employer], [employer]. 06-16-2015 08:44-0400 Body mass index (BMI) [Ratio] 31.62 kg/m2 Alma Murray [facility], Inc.; [employer], [employer]. 06-16-2015 08:44-0400 Body surface area Derived from formula 2.1 m2 Alma Murray [employer] [facility], [facility].; [employer], [employer]. 06-16-2015 08:44-0400 Body temperature 97.8 [degF] Alma Murray [facility], Inc.; [employer], [employer]. Comment on above: Method: Tympanic 06-16-2015 08:44-0400 Body weight 95.71 kg Almadestiny Murray LPN [place], [facility].; [employer], [employer]. 06-16-2015 08:44-0400 Diastolic blood pressure 88 mm[Hg] Alma Murray [employer] [facility].; [employer], [employer]. Comment on above: Patient Position: Sitting; Cuff Location : Right Arm; Cuff Size: Standard 06-16-2015 08:44-0400 Heart rate 77 /min Alma Murray LPN [facility], [facility].; [employer], [employer]. Comment on above: Pattern: Regular 06-16-2015 08:44-0400 Systolic blood pressure 127 mm[Hg] Almadestiny Murray [facility], [facility].; [employer], [employer]. Comment on above: Patient Position: Sitting; Cuff Location : Right Arm; Cuff Size: Standard 03-05-2015 09:28-0500 Body height 173.99 cm Priscila Mcleod MD Work Phone: [employer]. 03-05-2015 09:28-0500 Body mass index (BMI) [Ratio] 31.17 kg/m2 Priscila Mcleod MD Work Phone: [employer].; [employer]. 03-05-2015 09:28-0500 Body surface area Derived from formula 2.09 m2 Priscila Mcleod MD Work Phone: [employer].; [employer] 03-05-2015 09:28-0500 Body weight 94.35 kg Priscila Mcleod MD Work Phone: [employer].; [employer]. 03-05-2015 09:28-0500 Diastolic blood pressure 88 mm[Hg] Priscila Mcleod MD Work Phone: [employer].; [employer]. Comment on above: Patient Position: Sitting; Cuff Location : Left Arm; Cuff Size: Standard 03-05-2015 09:28-0500 Heart rate 76 /min Priscila Mcleod MD Work Phone: [employer].; [employer]. Comment on above: Pattern: Regular 03-05-2015 09:28-0500 Systolic blood pressure 130 mm[Hg] Priscila Mcleod MD Work Phone: [employer].; [employer]. Comment on above: Patient Position: Sitting; Cuff Location : Left Arm; Cuff Size: Standard 02-26-2014 09:03-0500 Body height 173.99 cm Beckie Knox [employer]. 02-26-2014 09:03-0500 Body mass index (BMI) [Ratio] 30.87 kg/m2 Beckie Knox [employer].; [employer]. 02-26-2014 09:03-0500 Body surface area Derived from formula 2.08 m2 Beckie Knox [employer].; [employer]. 02-26-2014 09:03-0500 Body weight 93.44 kg Beckie Knox [employer].; [employer]. 02-26-2014 09:03-0500 Diastolic blood pressure 83 mm[Hg] Beckie Knox [facility], Inc.; [employer] Comment on above: Patient Position: Sitting; Cuff Location : Left Arm; Cuff Size: Large 02-26-2014 09:03-0500 Heart rate 85 /min Beckie Knox [facility], Inc.; [employer] Comment on above: Pattern: Regular 02-26-2014 09:03-0500 Systolic blood pressure 123 mm[Hg] Beckie Knox [facility], Inc.; [employer] Comment on above: Patient Position: Sitting; Cuff Location : Left Arm; Cuff Size: Large 02-23-2013 07:20-0500 Body weight 91.63 kg Prachi E Spencer [facility], Inc.; [employer] 02-23-2013 07:20-0500 Diastolic blood pressure 77 mm[Hg] Prachi Madeline Spencer [facility], Inc.; [employer] Comment on above: Patient Position: Sitting; Cuff Location : Left Arm; Cuff Size: Standard 02-23-2013 07:20-0500 Heart rate 84 /min Prachi Madeline Spencer [facility].; [employer], [employer]. Comment on above: Pattern: Regular 02-23-2013 07:20-0500 Systolic blood pressure 124 mm[Hg] Prachi E Spencer [facility], Inc.; [employer], [employer]. Comment on above: Patient Position: Sitting; Cuff Location : Left Arm; Cuff Size: Standard 10-27-2011 10:34-0400 Body height 173.99 cm Beckie Knox [facility], Inc.; [employer], [employer]. 10-27-2011 10:34-0400 Body mass index (BMI) [Ratio] 31.62 kg/m2 [facility] Abilio [facility], Inc.; [employer] 10-27-2011 10:34-0400 Body surface area Derived from formula 2.1 m2 [facility], Inc.; [employer], [employer]. 10-27-2011 10:34-0400 Body weight 95.71 kg Beckie Knox LPN [facility], [facility].; [facility], [employer]. 10-27-2011 10:34-0400 Diastolic blood pressure 75 mm[Hg] Beckie Knox LPN [facility], [facility].; [employer] Comment on above: Patient Position: Sitting; Cuff Location : Left Arm; Cuff Size: Large 10-27-2011 10:34-0400 Heart rate 77 /min Beckie Knox LPN [facility], Inc.; [employer] Comment on above: Pattern: Regular 10-27-2011 10:34-0400 Systolic blood pressure 115 mm[Hg] Beckie Knox LPN [facility], Inc.; [employer] Comment on above: Patient Position: Sitting; Cuff Location : Left Arm; Cuff Size: Large 11-11-2010 09:48-0400 Body height 173.99 cm Beckie Knox [facility], Inc.; [employer] 11-11-2010 09:48-0400 Body mass index (BMI) [Ratio] 31.02 kg/m2 Bekcie Knox [facility], Inc.; [employer] 11-11-2010 09:48-0400 Body surface area Derived from formula 2.09 m2 Beckie Knox [employer] [facility], [facility].; [facility] 11-11-2010 09:48-0400 Body weight 93.9 kg Beckie Knox [facility], Inc.; [employer], [employer]. 11-11-2010 09:48-0400 Diastolic blood pressure 77 mm[Hg] Beckie Knox [facility], Inc.; [employer], [employer]. Comment on above: Patient Position: Sitting; Cuff Location : Left Arm; Cuff Size: Large 11-11-2010 09:48-0400 Heart rate 79 /min Beckie Knox LPN [facility], Inc.; [employer], [employer]. Comment on above: Pattern: Regular 11-11-2010 09:48-0400 Systolic blood pressure 119 mm[Hg] Beckie Knox LPN [facility], [facility].; [facility], [employer]. Comment on above: Patient Position: Sitting; Cuff Location : Left Arm; Cuff Size: Large 12-17-2009 10:49-0400 Body height 173.99 cm Beckie Knox [employer] [facility], [facility].; [facility], [employer]. 12-17-2009 10:49-0400 Body mass index (BMI) [Ratio] 31.32 kg/m2 Beckie Knox [facility], [facility].; [place] [facility], [employer]. 12-17-2009 10:49-0400 Body surface area Derived from formula 2.09 m2 Shaniqua Abilio [facility], [facility].; [facility], [facility]. 12-17-2009 10:49-0400 Body weight 94.8 kg Beckie Knox [facility], [facility].; [place] [facility], [employer]. 12-17-2009 10:49-0400 Diastolic blood pressure 80 mm[Hg] Beckie Knox [facility].; [facility]. Comment on above: Patient Position: Sitting; Cuff Location : Left Arm; Cuff Size: Large 12-17-2009 10:49-0400 Heart rate 65 /min Beckie Knox [facility], [facility].; [facility], [employer]. Comment on above: Pattern: Regular 12-17-2009 10:49-0400 Systolic blood pressure 120 mm[Hg] Beckie Knox [facility], [facility].; [employer] [facility]. Comment on above: Patient Position: Sitting; Cuff Location : Left Arm; Cuff Size: Large Encounters Encounter Date Encounter Type Care Provider Facility Start: 12-20-2023 End: 12-20-2023 Orders [facility] Start: 12-16-2023 End: 12-16-2023 Medication Priscila [facility]cleod [facility] Start: 12-16-2023 End: 12-16-2023 Office outpatient visit 15 minutes Priscila Mcleod MD Work Phone: [employer] Start: 11-30-2023 End: 11-30-2023 Office outpatient visit 15 minutes Priscila Mcleod MD Work Phone: [employer]. Start: 11-14-2023 End: 11-14-2023 Office outpatient visit 15 minutes Priscila Mcleod MD Work Phone: [employer]. Start: 11-14-2023 End: 11-14-2023 Telephone follow-up Priscila Mcleod MD Work Phone: [employer]. Start: 11-14-2023 Follow-up encounter Priscila salas MD Work Phone: [employer]. Start: 11-13-2023 End: 11-13-2023 Emergency department patient visit KEWRIN Correa [facility] Start: 11-11-2023 End: 11-11-2023 Office outpatient visit 15 minutes Priscila Mcleod MD Work Phone: [employer]. Start: 10-10-2023 End: 10-10-2023 Office outpatient visit 15 minutes Priscila Mcleod MD Work Phone: [employer]. Start: 10-10-2023 Follow-up encounter Priscila salas MD Work Phone: [employer]. Start: 10-03-2023 End: 10-03-2023 Orders Priscila Mcleod MD Work Phone: [employer]. Start: 09-09-2023 End: 09-09-2023 Office outpatient visit 15 minutes Priscila Mcleod MD Work Phone: [employer]. Start: 07-27-2022 End: 07-27-2022 Office outpatient visit 15 minutes Priscila Mcleod MD Work Phone: [employer]. Start: 07-22-2022 End: 07-22-2022 Orders Priscila Mcleod MD Work Phone: [employer]. Start: 04-02-2021 End: 04-02-2021 Office outpatient visit 15 minutes Priscila Mcleod MD Work Phone: [employer]. Start: 03-26-2021 End: 03-26-2021 Orders Priscila Mcleod MD Work Phone: [employer]. Start: 06-11-2020 End: 06-11-2020 Office outpatient visit 15 minutes Priscila Mcleod MD Work Phone: [employer]. Start: 06-04-2020 End: 06-10-2020 Orders Priscila Mcleod MD Work Phone: [employer]. Start: 02-14-2019 End: 02-13-2019 Historical Summary Priscila Mcleod MD Work Phone: [employer]. Start: 02-14-2019 End: 02-14-2019 Office outpatient visit 15 minutes Priscila Mcleod MD Work Phone: [employer]. Start: 09-27-2018 End: 09-27-2018 Telephone follow-up Priscila Mcleod MD Work Phone: [employer]. Start: 05-15-2018 End: 05-16-2018 Orders Priscila Mcleod MD Work Phone: [employer]. Start: 03-22-2018 End: 03-22-2018 Office outpatient visit 15 minutes Priscila Mcleod MD Work Phone: [employer]. Start: 03-17-2018 End: 03-20-2018 Orders Priscila Mcleod MD Work Phone: [employer]. Start: 09-05-2017 End: 09-05-2017 Office outpatient visit 15 minutes Priscila Mcleod MD Work Phone: [employer]. Start: 08-09-2017 End: 08-09-2017 Telephone follow-up Priscila Mcleod MD Work Phone: [employer]. Start: 08-06-2017 End: 08-06-2017 Historical Summary Priscila Mcleod MD Work Phone: [employer]. Start: 03-16-2017 End: 03-16-2017 Office outpatient visit 15 minutes Priscila Mcleod MD Work Phone: [employer]. Start: 03-08-2017 End: 03-08-2017 Telephone follow-up Priscila Mcleod MD Work Phone: [employer]. Start: 03-12-2016 End: 03-12-2016 Office outpatient visit 15 minutes Priscila Mcleod MD Work Phone: [employer]. Start: 03-09-2016 End: 03-09-2016 Orders Priscila Mcleod MD Work Phone: [employer]. Start: 06-16-2015 End: 06-16-2015 Office outpatient visit 15 minutes Priscila Mcleod MD Work Phone: [employer]. Start: 03-05-2015 End: 03-05-2015 Office outpatient visit 15 minutes Priscila Mcleod MD Work Phone: [employer]. Start: 03-03-2015 End: 03-03-2015 Orders Priscila Mcleod MD Work Phone: [employer]. Start: 02-26-2014 End: 02-26-2014 Office outpatient visit 15 minutes Priscila Mcleod MD Work Phone: [employer]. Start: 02-25-2014 End: 02-25-2014 Historical Summary Priscila Mcleod MD Work Phone: [employer]. Start: 02-04-2014 End: 02-05-2014 Orders Priscila Mcleod MD Work Phone: [employer]. Start: 02-23-2013 End: 02-23-2013 Patient encounter procedure Priscila Mcleod MD Work Phone: [employer]. Start: 01-20-2013 End: 01-22-2013 Orders Priscila Mcleod MD Work Phone: [employer]. Start: 12-07-2012 End: 12-07-2012 Medication Priscila Mcleod MD Work Phone: [employer]. Start: 10-27-2011 End: 10-27-2011 Patient encounter procedure Priscila Mcleod MD Work Phone: [employer] Start: 10-20-2011 End: 10-20-2011 Orders Priscila Mcleod MD Work Phone: [employer] Start: 11-11-2010 End: 11-11-2010 Patient encounter procedure Priscila Mcleod MD Work Phone: [employer] Start: 11-05-2010 End: 11-06-2010 Orders Priscila Mcleod MD Work Phone: [employer] Start: 12-17-2009 End: 12-17-2009 Patient encounter procedure Priscila Mcleod MD Work Phone: [employer] Start: 12-02-2009 End: 12-02-2009 Medication Priscila Mcleod MD Work Phone: [employer] Procedures Date Procedure Procedure Detail Performing Clinician Start: 11-13-2023 Urinalysis KERWIN SIMMONS Comment on above: Result Comment: URIN ALYSIS Performed By: #### [id number] #### [facility],[address] [place] [address] Start: 11-11-2023 End: 11-11-2023 Triamcinolone acet inj NOS Priscila Mcleod MD Work Phone: Start: 10-03-2023 End: 10-03-2023 Thyrotropin [Units/volume] in Serum or Plasma Josie Bhatti LPN Comment on above: 1.02 Start: 07-22-2022 End: 07-22-2022 Thyrotropin [Units/volume] in Serum or Plasma Sukhwinder Rodriguez LPN Comment on above: 0.76 Start: 02-09-2019 End: 02-09-2019 Lipid panel Suze Fontaine LPN Start: 03-16-2017 End: 03-16-2017 Body mass index documented Priscila Mcleod MD Work Phone: Start: 03-12-2016 End: 03-12-2016 Mammogram refused Suze Fontaine LPN Appendectomy Beckie Nguyen akilah marichuy [employer] Esophageal hiatus he rnia repair Beckie Nguyen Abilio [employer] Ligation of fallopian tube M rosendo Wendy Knox [employer] Subtotal thyroidectomy Beckie Knox [employer] Tonsillectomy Beckie Adams rios [employer] Plan of Treatment Date Care Activity Detail Author Start: 12-16-2023 Assay of folic acid serum FOLATE (70889) Start: 16-Dec-2023 09:47-04:00 Request [employer]; [employer] Start: 12-16-2023 25 hydroxy includes fractions if performed Vitamin D, 25-Hydroxy, LC/MS/MS (39679) Start: 16-Dec-2023 09:46-04:00 Request [employer]; [employer] Start: 12-16-2023 Cyanocobalamin vitamin b-12 VITAMIN B-12 SERUM (94741) Start: 16-Dec-2023 09:46-04:00 Request [employer]; [employer] Start: 12-16-2023 Assay of thyroid stimulating hormone tsh TSH (THYROID STIMULATING HORMONE) (24090) Start: 16-Dec-2023 09:46-04:00 Request [employer]; [employer] Start: 12-16-2023 Comprehensive metabolic panel CMP w/ GFR* (46653) Start: 16-Dec-2023 09:46-04:00 Request [employer]; [employer]. Start: 12-16-2023 Blood count complete auto&auto difrntl wbc CBC, PLATELETS & AUT DIFF (F) (36723) Start: 16-Dec-2023 09:46-04:00 Request [employer]; [employer]. Start: 10-10-2023 Patient encounter procedure Medical; RTN OFFICE VISIT - rtn [employer] Start: 10-Oct-2023 10:30-04:00 MD Priscila Mcleod Appointment Request [employer] Start: 10-03-2023 Assay of thyroid stimulating hormone tsh TSH (THYROID STIMULATING HORMONE) (51382) Start: 03-Oct-2023 Request [employer]; [employer]. dexAMETHasone so d phos (bulk) 100 % powder Ordered: 6-Sep-202MD Priscila Florez [employer]; [employer] Immunizations Immunization Date Immunization Notes Care Provider Griffin dunlap 05-31-2020 COVID-Moderna (100 MCG/0.5 ML) Priscila Mcleod MD Work Phone: [facility] [employer]; [employer] Payers Date Payer Category Payer Unknown [id number] Unknown [employer] Unknown [id number] Social History Date Type Detail Facility Tobacco Use: Tobacco Use: ; Former smoker . [employer]; [employer] Female [facility]; [employer] Work Phone: Ex-smoker [facility]; [employer] Work Phone: Summary Purpose Family History No Family History Records FoundNo Family History Records Found Advance Directives No Advanced Directives Records FoundNo Advanced Directives Records Found Additional Source Comments INFORMATION SOURCE (unrecogn ized section and content) DATE CREATED AUTHOR 11/14/2023 [facility] DATE CREATED AUTHOR AUTHOR'S ORGANIZ ATION 12/19/2023 [facility] FOR RECORDS PERTAINING TO PATIENTS WHO ARE OR HAVE BEEN ENROLLED IN A CHEMICAL DEPENDENCY/SUBSTANCEABUSE PROGRAM, SOME INFORMATION MAY BE OMITTED. This clinical summary was aggregated from multiple sources. Caution should be exercised in using it in the provision of clinical care. This summary normalizes information from multiple sources, and as a consequence, information in this document may materially change the coding, format and clinical context of patient data. In addition, data may be omitted in some cases. CLINICAL DECISIONS SHOULD BE BASED ON THE PRIMARY CLINICAL RECORDS. [employer] provides no warranty or guarantee of the accuracy or completeness of information in this document.
[2024-01-03 17:30] LABS: Troponin-I HS 80 pg/mL (3.0-54.0)
--- OUTSIDE RECORDS SUMMARY | 2024-01-03 19:48 | XMS RPT_ITS | CCD ---
Author Organization [facility] Care Team Providers Care Commercial Specialist Name Role Phone Priscila Mcleod MD Unavailable Priscila Mcleod MD Unavailable Tashi BOLES., Dr. Burt Unavailable Physical Therapy, Philip Pomleelee Unavailable Tanisha STITCH WHEELER, Chasity Unavailable Tano STITCH WHEELER, [place] Unavailable Unavailable Spencer STITCH WHEELER, Prachi Correa Unavailable Unavailable Isaias STITCH WHEELER, Hsae Unavailable Unavailable Brendan Nina MD Unavailable Yesy ANG, Alma Guerrero Unavailable Unavaila ble Marthey STITCH WHEELER, Jasmyn Unavailable Unavailable Michael STITCH WHEELER, Sukhwinder Unavailable Unavailable Fontaine STITCH WHEELER, Suze Unavailable Unavailable Awais STITCH WHEELER, Romi M Unavailable Unavailab le Abilio STITCH WHEELER, Beckie Nguyen Unavailable Unavailab le Terry STITCH WHEELER, Christine Unavailable Unavailabl e Terri STITCH WHEELER, Alma Salas Unavailable Unavaila ble Unavailable Unavailable Paco DAHL, Clarisse Unavailable Unavailable Davy STITCH WHEELER, Josie Unavailable Unavailable KERWIN ALVARADO Admitting Unavailable KERWIN ALVARADO Attending Unavailable KERWIN ALVARADO Primary Care Unavailable PRISCILA MCLEOD Consulting Unavailable PIRSCILA MCLEOD Referring Unavailable PROVIDER, UNKNOWN Consulting Unavailable PROVIDER, UNKNOWN Consulting Unavailable PROVIDER, UNKNOWN Consulting Unavailable Jean Marie Cali MD Unavailable [phone] [facility] Unavailable Medications Current Medications [...] for Chronic condition follow-up : reviewed by [facility] 07-27-2022 Unclassified (18 sources) Follow up for [...] for Chronic condition follow-up : reviewed by [facility] 04-02-2021 Unclassified (18 sources) Follow Up for [...] Multiple chronic conditions follow-up : reviewed by [facility] 06-11-2020 Unclassified (18 sources) Follow Up for [...] from hospital stay - Name of Hospital: [facility]. Date of Admission: 08/04/2017. Date of Discharge: [...] transitioning into care from an emergency room ([facility] 08/04/2017) and a summary of care was [...] reviewed by [facility] 03-12-2016 Unclassified (18 sources) [facility] Routine Follow up - The patient is [...] for Routine chronic follow-up : reviewed by [facility] 03-05-2015 Unclassified (18 sources) Follow up for [...] Multiple chronic conditions follow-up : reviewed by [facility] 02-26-2014 Unclassified (17 sources) Follow Up for [...] transitioning into care from an emergency room ([facility] . 02-23-2013 Unclassified (18 sources) Follow Up [...] transitioning into care from an emergency room ([facility] 08/04/2017) and a summary of care was reviewed. 09-05-2017 Unclassified (2 sources) [ADDITIONAL REASON] Follow up from hospital stay - Name of Hospital: [facility]. Date of Admission: 08/04/2017. Date of Discharge: [...] Note for Ear pain : reviewed by [facility] 09-09-2023 Unclassified (18 sources) Follow Up for [...] Multiple chronic conditions follow-up : reviewed by [facility] 02-14-2019 Unclassified (18 sources) Gastroesophageal Reflux Disease [...] here to follow-up after Emergency Room/Urgent Care ([facility] with generalized illness cause not clear.) on : (11-13-23). 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 Pt saw chiropractor twice and has been [...] on above: Performed By: #### 6 399, 78670, 927, 899, 82907 #### [facility] [place] [address] [employer]: Armani Oakes MD Basophils/100 WBC (Bld) 0.3 % Normal [facility] Comment on above: Performed By: #### 6 399, 41052, 927, 899, 96064 #### [facility] [place] [address] [employer]: Armani Oakes MD Eosinophils (Bld) [#/Vol] 0.068 10*3/uL Normal 15-500 [facility] Comment on above: Performed By: #### 6 399, 35589, 927, 899, 07645 #### [facility] [place] [address] [employer]: Armani Oakes MD Eosinophils/100 WBC (Bld) 1.0 % Normal [facility] Comment on above: Performed By: #### 6 399, 21174, 927, 899, 92467 #### [facility] [place] [address] [employer]: Armani Oakes MD Erythrocyte distribution width (RBC) [Ratio] 13.0 % Normal 11.0-15.0 [facility] Comment on above: Performed By: #### 6 399, 74055, 927, 899, 69824 #### [facility] [place] [address] [employer]: Armani Oakes MD Hematocrit (Bld) [Volume fraction] 44.1 % Normal 35.0-45.0 [facility] Comment on above: Performed By: #### 6 399, 37292, 927, 899, 18405 #### [facility] of [place] [address] [employer]: Armani Oakes MD Hemoglobin (Bld) [Mass/Vol] 14.4 g/dL Normal 11.7-15.5 [facility] Comment on above: Performed By: #### 6 399, 50785, 927, 899, 97724 #### [facility] [place] [address] [employer]: Armani Oakes MD Lymphocytes (Bld) [#/Vol] 1.319 10*3/uL Normal 850-3900 [facility] Comment on above: Performed By: #### 6 399, 20507, 927, 899, 15141 #### [facility] [place] [address] [employer]: Armani Oakes MD Lymphocytes/100 WBC (Bld) 19.4 % Normal [facility] Comment on above: Performed By: #### 6 399, 15475, 927, 899, 37785 #### [facility] [place] [address] [employer]: Armani Oakes MD MCH (RBC) [Entitic mass] 31.9 pg Normal 27.0-33.0 [facility] Comment on above: Performed By: #### 6 399, 40691, 927, 899, 70346 #### [facility] [place] [address] [employer]: Armani Oakes MD MCHC (RBC) [Mass/Vol] 32.7 [...] clinical condition. Performed By: #### 6 399, 38746, 927, 899, 64154 #### [facility] [place] [address] [employer]: Armani Oakes MD MCV (RBC) [Entitic vol] 97.8 fL Normal 80.0-100.0 [facility] Comment on above: Performed By: #### 6 399, 88002, 927, 899, 13904 #### [facility] [place] [address] [employer]: Armani Oakes MD Monocytes (Bld) [#/Vol] 0.483 10*3/uL Normal 200-950 [facility] Comment on above: Performed By: #### 6 399, 30011, 927, 899, 27842 #### [facility] [place] [address] [employer]: Armani Oakes MD Monocytes/100 WBC (Bld) 7.1 % Normal [facility] Comment on above: Performed By: #### 6 399, 90562, 927, 899, 47218 #### [facility] [place] [address] [employer]: Armani Oakes MD Neutrophils (Bld) [#/Vol] 4.91 10*3/uL Normal 3153-5297 [facility] Comment on above: Performed By: #### 6 399, 26769, 927, 899, 58522 #### [facility] [place] [address] [employer]: Armani Oakes MD Neutrophils/100 WBC (Bld) 72.2 % Normal [facility] Comment on above: Performed By: #### 6 399, 79439, 927, 899, 14872 #### [facility] [place] [address] [employer]: Armani Oakes MD Platelet mean volume (Bld) [Entitic vol] 10.5 fL Normal 7.5-12.5 [facility] Comment on above: Performed By: #### 6 399, 81648, 927, 899, 69612 #### [facility] [place] [address] [employer]: Armani Oakes MD Platelets (Bld) [#/Vol] 266 10*3/uL Normal 140-400 [facility] Comment on above: Performed By: #### 6 399, 91687, 927, 899, 96072 #### [facility] [place] [address] [employer]: Armani Oakes MD RBC (Bld) [#/Vol] 4.51 10*6/uL Normal 3.80-5.10 [facility] Comment on above: Performed By: #### 6 399, 67910, 927, 899, 24704 #### [facility] [place] [address] [employer]: Armani Oakes MD WBC (Bld) [#/Vol] 6.8 10*3/uL Normal 3.8-10.8 [facility] Comment on above: Performed By: #### 6 399, 71249, 927, 899, 91669 #### [facility] [place] [address] [employer]: Armani Oakes MD [facility] 12-17-2023 Albumin [Mass/Vol] 4.6 g/dL Normal 3.6-5.1 [facility] Comment on above: Performed By: #### 6 399, 95543, 927, 899, 60278 #### [facility] [place] [address] [employer]: Armani Oakes MD Albumin/Globulin [Mass ratio] 1.7 {ratio} Normal 1.0-2.5 [facility] Comment on above: Performed By: #### 6 399, 65233, 927, 899, 46547 #### [facility] [place] [address] [employer]: Armani Oakes MD ALP [Catalytic activity/Vol] 77 U/L Normal 37-153 [facility] Comment on above: Performed By: #### 6 399, 34951, 927, 899, 75100 #### [facility] of [address], [address] [place] [address] [employer]: Armani Oakes MD ALT [Catalytic activity/Vol] 15 U/L Normal 6-29 [facility] Comment on above: Performed By: #### 6 399, 95626, 927, 899, 60137 #### [facility] of [address], [address] [place] [address] [employer]: Armani Oakes MD AST [Catalytic activity/Vol] 12 U/L Normal 10-35 [facility] Comment on above: Performed By: #### 6 399, 27884, 927, 899, 70613 #### [facility] of [address], [address] [place] [address] [employer]: Armani Oakes MD Bilirubin [Mass/Vol] 0.8 mg/dL Normal 0.2-1.2 [facility] Comment on above: Performed By: #### 6 399, 57386, 927, 899, 27364 #### [facility] [place] [address] [employer]: Armani Oakes MD BUN/CREATININE RATIO SEE NOTE: Normal 6-22 [facility] Comment on above: Result Comment: Not Reported: BUN and Creatinine are within reference range. Performed By: #### 6 399, 08085, 927, 899, 81050 #### [facility] of [address], [address] [place] [address] [employer]: Armani Oakes MD Calcium [Mass/Vol] 9.8 mg/dL Normal 8.6-10.4 [facility] Comment on above: Performed By: #### 6 399, 23451, 927, 899, 49611 #### [facility] of [address], [address] [place] [address] [employer]: Armani Oakes MD Chloride [Moles/Vol] 108 mmol/L Normal 98-110 [facility] Comment on above: Performed By: #### 6 399, 00082, 927, 899, 37913 #### [facility] [place] [address] [employer]: Armani Oakes MD CO2 [Moles/Vol] 25 mmol/L Normal 20-32 [facility] Comment on above: Performed By: #### 6 399, 89071, 927, 899, 02265 #### [facility] [place] [address] [employer]: Armani Oakes MD Creatinine [Mass/Vol] 0.68 mg/dL Normal 0.50-1.03 [facility] Comment on above: Performed By: #### 6 399, 36028, 927, 899, 86240 #### [facility] [place] [address] [employer]: Armani Oakes MD GFR/1.73 sq M.predicted among non-blacks MDRD (S/P/Bld) [Vol rate/Area] 101 mL/min/{1.73_m2} Normal > OR = 60 [facility] Comment on above: Performed By: #### 6 399, 42072, 927, 899, 33003 #### [facility] [place] [address] [employer]: Armani Oakes MD Globulin (S) [Mass/Vol] 2.7 g/dL Normal 1.9-3.7 [facility] Comment on above: Performed By: #### 6 399, 63534, 927, 899, 72018 #### [facility] [place] [address] [employer]: Armani Oakes MD Glucose [Mass/Vol] 101 mg/dL High 65-99 [facility] Comment on above: Result Comment: Fasting reference interval For someone without known diabetes, a glucose value between 100 and 125 mg/dL is consistent with prediabetes and should be confirmed with a follow-up test. Performed By: #### 6 399, 85862, 927, 899, 59410 #### [facility] [place] [address] [employer]: Armani Oakes MD Potassium [Moles/Vol] 3.8 mmol/L Normal 3.5-5.3 [facility] Comment on above: Performed By: #### 6 399, 99929, 927, 899, 26365 #### [facility] [place] [address] [employer]: Armani Oakes MD Protein [Mass/Vol] 7.3 g/dL Normal 6.1-8.1 [facility] Comment on above: Performed By: #### 6 399, 80500, 927, 899, 74920 #### [facility] [place] [address] [employer]: Armani Oakes MD Sodium [Moles/Vol] 142 mmol/L Normal 135-146 [facility] Comment on above: Performed By: #### 6 399, 66091, 927, 899, 63138 #### [facility] [place] [address] [employer]: Armani Oakes MD Urea nitrogen [Mass/Vol] 10 mg/dL Normal 7-25 [facility] Comment on above: Performed By: #### 6 399, 30268, 927, 899, 94853 #### [facility] [place] [address] [employer]: Armani Oakes MD FOLATE, SERUMon 12-17-2023 Folate [Mass/Vol] 12.5 ng/mL Normal [facility] Comment on above: Result Comment: Refe rence Range Low: <3.4 Borderline: 3.4-5.4 Normal: >5.4 Performed By: #### 6 399, 02743, 927, 899, 55035 #### [facility] [place] [address] [employer]: Armani Oakes MD TSHon 12-17-2023 TSH Qn 0.51 m[IU]/L Normal 0.40-4.50 [facility] Comment on above: Performed By: #### 6 399, 00750, 927, 899, 20957 #### [facility] [address], [address] [place] [address] [employer]: Armani Oakes MD VITAMIN B12on 12-17-2023 Cobalamin (Vitamin B12) [Mass/Vol] 1185 pg/mL High 200-1100 [facility] Comment on above: Performed By: #### 6 399, 06907, 927, 899, 36158 #### [facility] [address], [address] [place] [address] [employer]: Armani Oakes MD VITAMIN D,25-OH,TOTAL,IAon 1 VITAMIN [...] D, (D2,D3), LC/MS/MS is recommended: order code 06592 (patients >2yrs). See Note 1 Note 1 For additional information, please refer to [email or web address] (This link is being provided for informational/ educational purposes only.) Performed By: #### 6 399, 84687, 927, 899, 42820 #### [facility] [address], [address] [place] [address] [employer]: Armani Oakes MD Laboratory - Chemistry and C hemistry - challengeon 12-16-2023 Albumin [Mass/Vol] 4.6 g/dL Normal 3.6 - 5.1 g/dL [facility], [facility].; [facility]. Albumin/Globulin [Mass ratio] 1.7 {ratio} Normal 1.0 - 2.5 [facility]; [facility] ALP [Catalytic activity/Vol] 77 U/L Normal 37 - 153 U/L [facility].; [facility], [facility]. ALT [Catalytic activity/Vol] 15 U/L Normal 6 - 29 U/L [facility].; [facility]. AST [Catalytic activity/Vol] 12 U/L Normal 10 - 35 U/L [facility]; [facility] Bilirubin [Mass/Vol] 0.8 mg/dL Normal 0.2 - 1.2 mg/dL [facility]; [facility], [facility]. Calcium [Mass/Vol] 9.8 mg/dL Normal 8.6 - 10. 4 mg/dL [facility].; [facility], [facility] Chloride [Moles/Vol] 108 mmol/L Normal 98 - 110 mmol/L [facility]; [facility], [facility]. CO2 [Moles/Vol] 25 mmol/L Normal 20 - 32 mmol/L [facility]; [facility]. Cobalamin (Vitamin B12) [Mass/Vol] 1185 pg/mL Abnormal 200 - 1100 pg/mL [facility].; [facility], [facility]. Creatinine [Mass/Vol] 0.68 mg/dL Normal 0.50 - 1.03 mg/dL [facility]; [facility], [facility]. Folate [Mass/Vol] 12.5 ng/mL Normal [facility]; [facility] GFR/1.73 sq M.predicted among non-blacks MDRD (S/P/Bld) [Vol rate/Area] 101 mL/min/{1.73_m2} Normal [facility].; [facility], [facility] Glucose [Mass/Vol] 101 mg/dL Abnormal 65 - 99 mg/dL [facility].; [facility], [facility] Potassium [Moles/Vol] 3.8 mmol/L Normal 3.5 - 5.3 mmol/L [facility].; [facility] Protein [Mass/Vol] 7.3 g/dL Normal 6.1 - 8.1 g/dL [facility]; [facility], [facility] Sodium [Moles/Vol] 142 mmol/L Normal 135 - 146 mmol/L [facility]; [facility], [facility] TSH Qn 0.51 m[IU]/L Normal 0.40 - 4.50 {mIU/L} [facility]; [facility], [facility] Urea nitrogen [Mass/Vol] 10 mg/dL Normal 7 - 25 mg/dL [facility]; [facility] Laboratory - Hematology and Cell countson 12-16-2023 Basophils (Bld) [#/Vol] 0.02 10*3/uL Normal 0 - 200 {cells/uL} [facility]; [facility], [facility] Basophils/100 WBC (Bld) 0.3 % Normal [facility]; [facility] Eosinophils (Bld) [#/Vol] 0.068 10*3/uL Normal 15 - 500 {cells/uL} [facility].; [facility] Eosinophils/100 WBC (Bld) 1.0 % Normal [facility]; [facility] Erythrocyte distribution width (RBC) [Ratio] 13.0 % Normal 11.0 - 15.0 % [facility].; [facility], [facility] Hematocrit (Bld) [Volume fraction] 44.1 % Normal 35.0 - 45.0 % [facility]; [facility], [facility] Hemoglobin (Bld) [Mass/Vol] 14.4 g/dL Normal 11.7 - 15.5 g/dL [facility].; [facility], [facility] Lymphocytes (Bld) [#/Vol] 1.319 10*3/uL Normal 850 - 3900 {cells/uL} [facility], [facility].; [facility] Lymphocytes/100 WBC (Bld) 19.4 % Normal [facility].; [employer]. MCH (RBC) [Entitic mass] 31.9 pg Normal 27.0 - 33.0 pg [place] [employer].; [employer]. MCHC (RBC) [Mass/Vol] 32.7 g/dL Normal 32.0 - 36.0 g/dL [facility].; [employer]. MCV (RBC) [Entitic vol] 97.8 fL Normal 80.0 - 100.0 fL [place] [employer] [facility].; [employer]. Monocytes (Bld) [#/Vol] 0.483 10*3/uL Normal 200 - 950 {cells/uL} [place] [employer] [facility].; [employer]. Monocytes/100 WBC (Bld) 7.1 % Normal [place] [employer] [facility].; [employer]. Neutrophils (Bld) [#/Vol] 4.91 10*3/uL Normal 1500 - 7800 {cells/uL} [employer].; [employer]. Neutrophils/100 WBC (Bld) 72.2 % Normal [place] [employer] [facility].; [employer]. Platelet mean volume (Bld) [Entitic vol] 10.5 fL Normal 7.5 - 12.5 fL [place] [employer] [facility].; [employer], [facility]. Platelets (Bld) [#/Vol] 266 10*3/uL Normal 140 - 400 [employer].; [employer], [employer] RBC (Bld) [#/Vol] 4.51 10*6/uL Normal 3.80 - 5.1 0 {Million/uL} [employer].; [employer], [employer]. WBC (Bld) [#/Vol] 6.8 10*3/uL Normal 3.8 - 10.8 [employer].; [employer]. No Panel Informationon 12-15 BUN/CREATININE RATIO SEE NOTE: Normal 6 - 22 [place] [employer].; [employer] GLOBULIN 2.7 Normal 1.9 - 3.7 [employer].; [employer], [employer]. VITAMIN D,25-OH,TOTAL,IA 25 ng/mL Abnormal 30 - 100 ng/mL [facility], [facility]. CBC + DIFFon 11-13-2023 Baso # 0.02 x10EE3/UL Normal 0.00 - 0.10 [facility] Comment on above: Performed By: #### 2 59105 #### [facility],[address] [place] [address] Basophils/100 WBC (Bld) 0.2 % Normal 0.0 - 2.0 [facility] Comment on above: Performed By: #### 2 13692 #### [facility],[address] [place] [address] CBC + DIFF Normal [facility] Comment on above: Result Comment: CBC- COMPLETE BLOOD COUNT Performed By: #### 2 40999 #### [facility],[address] [place] [address] EO # 0.10 x10EE3/UL Normal 0.00 - 0.50 [facility] Comment on above: Performed By: #### 2 37687 #### [facility],[address] [place] [address] Eosinophils/100 WBC (Bld) 1.0 % Normal 0.0 - 7.0 [facility] Comment on above: Performed By: #### 2 20182 #### [facility],[address] [place] [address] Erythrocyte distribution width (RBC) [Ratio] 12.6 % Normal 12.0 - 15.6 [facility] Comment on above: Performed By: #### 2 14165 #### [facility],[address] [place] [address] Hematocrit (Bld) [Volume fraction] 45.0 % Normal 34.0 - 46.0 [facility] Comment on above: Performed By: #### 2 70460 #### [facility],[address] [place] [address] Hemoglobin (Bld) [Mass/Vol] 15.8 g/dL Normal 12.0 - 16.0 [facility] Comment on above: Performed By: #### 2 70288 #### [facility],[address] [place] [address] Lymph # 1.75 x10EE3/UL Normal 0.80 - 2.80 [facility] Comment on above: Performed By: #### 2 56704 #### [place] [address] Lymphocytes/100 WBC (Bld) 16.7 % Low 20.0 - 45.0 [facility] Comment on above: Performed By: #### 2 03047 #### [facility],[address] [place] [address] MANUAL DIFF N/A Normal [facility] Comment on above: Performed By: #### 2 75849 #### [place] [address] MCH (RBC) [Entitic mass] 33 pg Normal 27 - 33 [facility] Comment on above: Performed By: #### 2 24178 #### [place] [address] MCHC 35 X10 3 Normal 32 - 36 [facility] Comment on above: Performed By: #### 2 28350 #### [place] [address] MCV (RBC) [Entitic vol] 94 fL Normal 80 - 99 [facility] Comment on above: Performed By: #### 2 86300 #### [place] [address] [place] # 0.75 x10EE3/UL Normal 0.20 - 1.00 [facility] Comment on above: Performed By: #### 2 60375 #### [place] [address] MONOS % 7.2 % Normal 0.0 - 10.0 [facility] Comment on above: Performed By: #### 2 41359 #### [facility],[address] [place] [address] Morphology Simon (Bld) [Interp] N/A Normal [facility] Comment on above: Performed By: #### 2 18613 #### [facility],[address] [place] [address] Neut # 7.87 x10EE3/UL High 1.50 - 7.10 [facility] Comment on above: Performed By: #### 2 04956 #### [place] [address] Neutrophils/100 WBC (Bld) 75.0 % Normal 46.0 - 76.0 [facility] Comment on above: Performed By: #### 2 52445 #### [place] [address] PLATELET 269 x10EE3/UL Normal 150 - 450 [facility] Comment on above: Performed By: #### 2 87453 #### [place] [address] Platelet mean volume (Bld) [Entitic vol] 7.6 fL Normal 6.6 - 10.5 [facility] Comment on above: Result Comment: AUTO MATED DIFFERENTIAL Performed By: #### 2 86074 #### [facility],[address] [place] [address] RBC 4.78 x 10EE6/UL Normal 4.10 - 5.30 [facility] Comment on above: Performed By: #### 2 54508 #### [place] [address] WBC 10.5 x 10EE3/UL Normal 4.5 - 10.8 [facility] Comment on above: Performed By: #### 2 92250 #### [facility],[address] [place] [address] CHEST 2 VIEWSon 11-13-2023 CHEST 2 VIEWS [place] [address] Patient: ELLIE WALKER Phone#: : 1965 Age: 58 Gender: F Pt. Type: ER Account: [id number] Location: 05 Ordering: KERWIN ALVARADO Exam Date: 11/13/2023/16:06 Family Phys: PRISCILA MCLEOD Charge Code: [id number] Physician: [place] Order #: [id number] Dose#: PROCEDURE: X-RAY CHEST 2 VIEWS COMPARISON: [facility], XR, CHEST PA/LAT, 02/27/2017, 15:58. INDICATIONS: [...] on 11/13/2023 at 17:43 Normal [facility] CMP with eGFRon 11-13-2023 AGE 58 years Normal [facility] Comment on above: Performed By: #### 2 19009 #### [facility],[address] [place] [address] 99866 Albumin [Mass/Vol] 4.3 g/dL Normal 3.4 - 5.0 [facility] Comment on above: Performed By: #### 2 83460 #### [facility],[address] [place] [address] 59794 Albumin/Globulin [Mass ratio] 1.3 {ratio} Normal 0.9 - 1.6 [facility] Comment on above: Performed By: #### 2 76634 #### [facility],[address] [place] [address] 64487 ALK PHOS 117 U/L High 46 - 116 [facility] Comment on above: Performed By: #### 2 82517 #### [facility],[address] [place] [address] 16824 ALT [Catalytic activity/Vol] 29 U/L Normal 16 - 63 [facility] Comment on above: Performed By: #### 2 48585 #### [facility],[address] [place] [address] 19804 Anion gap [Moles/Vol] 15 mmol/L Normal 10 - 20 [facility] Comment on above: Performed By: #### 2 66705 #### [facility],[address] [place] [address] 50629 AST [Catalytic activity/Vol] 15 U/L Normal 13 - 39 [facility] Comment on above: Performed By: #### 2 27206 #### [facility],[address] [place] [address] 39750 B/C RATIO 16 ratio Normal 0 - 30 [facility] Comment on above: Performed By: #### 2 83102 #### [facility],[address] [place] [address] 46060 Bilirubin [Mass/Vol] 0.7 mg/dL Normal 0.2 - 1.0 [facility] Comment on above: Performed By: #### 2 86353 #### [facility],[address] [place] [address] 24156 Calcium [Mass/Vol] 10.2 mg/dL High 8.5 - 10.1 [facility] Comment on above: Performed By: #### 2 62469 #### [facility],[address] [place] [address] 77044 Chloride [Moles/Vol] 103 mmol/L Normal 98 - 107 [facility] Comment on above: Performed By: #### 2 91770 #### [facility],[address] [place] [address]781 CMP with eGFR Normal [facility] Comment on above: Result Comment: COMP REHENSIVE METABOLIC PANEL Performed By: #### 2 03200 #### [facility],[address] [place] [address] 92442 CO2 [Moles/Vol] 27.4 mmol/L Normal 21.0 - 32.0 [facility] Comment on above: Performed By: #### 2 26394 #### [facility],[address] [place] [address] Creatinine [Mass/Vol] 0.77 mg/dL Normal 0.55 - 1.02 [facility] Comment on above: Performed By: #### 2 68106 #### [facility],[address] [place], [place] [id number] GFR/1.73 sq M.predicted among non-blacks MDRD (S/P/Bld) [Vol rate/Area] mL/min/{1.73_m2} Normal 60 - 999 [facility] Comment on above: Performed By: #### 2 65177 #### [facility],[address] [place] [address] Result Comment: ACCO RDING TO THE NATIONAL KIDNEY DISEASE EDUCATION PROGRAM(NKDE), A NORMAL eGFR IS A VALUE GREATER THAN OR EQUAL TO 60 ML/MIN/1.73 SQ METERS. CHRONIC KIDNEY DISEASE: <60mL/MIN/1.73 SQ METERS KIDNEY FAILURE: <15mL/MIN/1.73 SQ METERS THIS TEST SHOULD ONLY BE USED FOR PATIENTS 18 YEARS OF AGE AND OLDER. Globulin (S) [Mass/Vol] 3.4 g/dL Normal 1.5 - 3.8 [facility] Comment on above: Performed By: #### 2 20754 #### [facility],[address] [place] [address] 26231 Glucose [Mass/Vol] 113 mg/dL High 74 - 106 [facility] Comment on above: Performed By: #### 2 87682 #### [facility],[address] [place] [address] 56171 Potassium [Moles/Vol] 3.4 mmol/L Low 3.5 - 5.1 [facility] Comment on above: Performed By: #### 2 59746 #### [facility],[address] [place] [address] 58847 Protein [Mass/Vol] 7.7 g/dL Normal 6.4 - 8.2 [facility] Comment on above: Performed By: #### 2 78539 #### [facility],[address] [place] [address] 77886 Sodium [Moles/Vol] 142 mmol/L Normal 136 - 145 [facility] Comment on above: Performed By: #### 2 18863 #### [facility],[address] [place] [address] 43279 Urea nitrogen [Mass/Vol] 12 mg/dL Normal 7 - 18 [facility] Comment on above: Performed By: #### 2 81604 #### [facility],[address] [place] [address] 25730 CORONAVIRUS (SARS) ANTIGEN T ESTon 11-13-2023 EXTERNAL QC DONE? YES Normal [facility] Comment on above: Performed By: #### 2 31066 #### [facility],[address] [place] [address] 51068 INTERNAL CONTROL PASS Normal [facility] Comment on above: Performed By: #### 2 15163 #### [facility],[address] [place] [address] 28631 SARS ANTIGEN Negative Normal NORMAL: NEGATIVE [facility] Comment on above: Performed By: #### 2 74932 #### [facility],[address] [place] [address] 73354 SEND TO ? NO Normal [facility] Comment on above: Result Comment: SARS -CoV-2 THIS TEST IS BEING USED UNDER THE FDA EUA PROCEDURE. THIS ASSAY HAS BEEN VALIDATED AT [facility] FOR USE WITH NASAL AND NASOPHARYNGEAL SWAB [...] PUBLIC HEALTH AUTHORITIES. Performed By: #### 2 03705 #### [facility],[address] [place] [address] CT BRAIN W/O CONTRASTon 09-0 CT BRAIN W/O CONTRAST [place] [address] Patient: ELLIE WALKER Phone#: : 1965 Age: 58 Gender: F Pt. Type: ER Account: [id number] Location: [facility] Ordering: KERWIN ALVARADO Exam Date: 11/13/2023/16:01 Family Phys: PRISCILA MCLEOD Charge Code: [id number] Physician: [place] Order #: [id number] Dose#: 57.50 mGy PROCEDURE: CT BRAIN WITHOUT [...] on 11/13/2023 at 16:16 Normal [facility] URINALYSISon 11-13-2023 Amorphous NONE Normal [facility] Comment on above: Performed By: #### 2 17423 #### [place] [address] Bacteria NONE Normal [facility] Comment on above: Performed By: #### 2 46252 #### [facility],[address] [place] [address] Bilirubin Ql (U) Negative Normal NORMAL: NEGATIVE [facility] Comment on above: Performed By: #### 2 18642 #### [facility],[address] [place] [address] Casts NONE Normal [facility] Comment on above: Performed By: #### 2 01394 #### [facility],[address],[place] [address] Clarity (U) clear Normal NORMAL: CLEAR [facility] Comment on above: Performed By: #### 2 90384 #### [facility],[address] [place] [address] 65036 Color (U) yellow Normal NORMAL: YELLOW [facility] Comment on above: Performed By: #### 2 35055 #### [facility],[address] [place] [address] 54657 Crystals LM Nom (Urine sed) NONE Normal [facility] Comment on above: Performed By: #### 2 65631 #### [facility],[address] [place], [place] [address] Epi Cells OCC Normal [facility] Comment on above: Performed By: #### 2 68817 #### [facility],[address] [place] [address] 62507 Glucose Ql (U) NORM Normal NORMAL: NORMAL [facility] Comment on above: Performed By: #### 2 86072 #### [facility],[address] [place] [address] 00672 Hemoglobin Ql (U) Negative Normal NORMAL: NEGATIVE [facility] Comment on above: Performed By: #### 2 72054 #### [facility],[address] [place] [address] 47980 Ketone Negative Normal NORMAL: NEGATIVE [facility] Comment on above: Performed By: #### 2 71206 #### [facility],[address] [place] [address] 05586 Leukocytes 25 Abnormal NORMAL: NEGATIVE [facility] Comment on above: Performed By: #### 2 32935 #### [facility],[address] [place] [address] 90602 Mucous NONE Normal [facility] Comment on above: Performed By: #### 2 61500 #### [facility],[address] [place] [address] 21187 Nitrite Ql (U) Negative Normal NORMAL: NEGATIVE [facility] Comment on above: Performed By: #### 2 12729 #### [facility],[address] [place] [address] pH (U) 6 [pH] Normal NORMAL: 5.0-8.0 [facility] Comment on above: Performed By: #### 2 52516 #### [facility],[address] [place] [address] Protein Ql (U) Negative Normal NORMAL: NEGATIVE [facility] Comment on above: Performed By: #### 2 45036 #### [facility],[address] [place] [address] Rbc NONE Normal 0-3/hpf [facility] Comment on above: Performed By: #### 2 77572 #### [facility],[address] [place] [address] Sp [place] 1.015 Normal NORMAL: 1.010-1.030 [facility] Comment on above: Performed By: #### 2 34982 #### [facility],[address] [place] [address] Specimen Type Clean catch Normal [facility] Comment on above: Performed By: #### 2 31938 #### [facility],[address] [place] [address] Urinalysis dipstick W Reflex Microscopic panel (U) SEE BELOW Normal [facility] Comment on above: Result Comment: MICR OSCOPIC Performed By: #### 2 20305 #### [facility],[address] [place] [address] Urobilinog NORM Normal NORMAL: NORMAL [facility] Comment on above: Performed By: #### 2 52867 #### [facility],[address] [place] [address] Wbc 1-5 Normal 0-5/hpf [facility] Comment on above: Performed By: #### 2 29825 #### [facility],[address] [place] [address] 49040 Yeast NONE Normal [facility] Comment on above: Performed By: #### 2 10944 #### [facility],[address] [place], [place] [address] TSHon 10-04-2023 TSH Qn 1.02 m[IU]/L Normal 0.40-4.50 [facility] Comment on above: Performed By: #### 8 99 #### [facility] [address], [address] [place] [id number] [employer]: Armani Oakes MD Laboratory - Chemistry and C hemistry - challengeon 10-03-2023 TSH Qn 1.02 m[IU]/L Normal 0.40 - 4.50 {mIU/L} [facility], [facility].; [facility], [facility]. Laboratory - Chemistry and C hemistry - challengeon 07-22-2022 TSH Qn 0.76 m[IU]/L Normal 0.40 - 4.50 {mIU/L} [facility], [facility].; [facility], [facility]. Laboratory - Chemistry and C hemistry - challengeon 03-26-2021 TSH Qn 0.70 m[IU]/L Normal [facility], [facility].; [place] [employer] [facility], [facility]. Laboratory - Chemistry and C hemistry - challengeon 06-04-2020 TSH Qn 0.78 m[IU]/L Normal [facility], [facility].; [facility], [facility]. Laboratory - Chemistry and C hemistry - challengeon 02-08-2019 Albumin [Mass/Vol] 4.5 g/dL Normal 3.6 - 5.1 g/dL [facility], [facility].; [facility], [facility]. Albumin/Globulin [Mass ratio] 1.8 {ratio} Normal 1.0 - 2.5 [facility], [facility].; [place] [employer] [facility], [employer]. ALP [Catalytic activity/Vol] 93 U/L Normal 33 - 130 U/L [facility], [facility].; [place] [employer] ALT [Catalytic activity/Vol] 21 U/L Normal 6 - 29 U/L [facility], [facility].; [facility], [employer] AST [Catalytic activity/Vol] 19 U/L Normal 10 - 35 U/L [facility].; [facility], [facility] Bilirubin [Mass/Vol] 0.7 mg/dL Normal 0.2 - 1.2 mg/dL [facility].; [facility], [facility] Calcium [Mass/Vol] 9.4 mg/dL Normal 8.6 - 10. 4 mg/dL [facility]; [facility], [facility] Chloride [Moles/Vol] 105 mmol/L Normal 98 - 110 mmol/L [facility]; [facility], [facility] Cholesterol [Mass/Vol] 261 mg/dL Abnormal [facility]; [facility] Cholesterol in HDL [Mass/Vol] 87 mg/dL Normal [facility]; [facility], [facility] Cholesterol in LDL [Mass/Vol] 144 mg/dL Abnormal [facility]; [facility], [facility] CO2 [Moles/Vol] 32 mmol/L Normal 20 - 32 mmol/L [facility].; [facility], [facility] Creatinine [Mass/Vol] 0.63 mg/dL Normal 0.50 - 1.05 mg/dL [facility].; [facility], [facility]. GFR/1.73 sq M.predicted among blacks MDRD (S/P/Bld) [Vol rate/Area] 119 mL/min/{1.73_m2} Normal [facility].; [facility], [facility] Glucose [Mass/Vol] 84 mg/dL Normal 65 - 99 mg/dL [facility].; [facility], [facility] Potassium [Moles/Vol] 4.0 mmol/L Normal 3.5 - 5.3 mmol/L [facility].; [facility], [facility]. Protein [Mass/Vol] 7.0 g/dL Normal 6.1 - 8.1 g/dL [facility]; [facility], [facility] Sodium [Moles/Vol] 141 mmol/L Normal 135 - 146 mmol/L [facility], [facility].; [facility], Inc[employer] Triglyceride [Mass/Vol] 163 mg/dL Abnormal [facility] Hospital[facility] [facility]; [place] [employer] [facility] TSH Qn 0.75 m[IU]/L Normal [facility]; [place] [employer] [facility] Urea nitrogen [Mass/Vol] 12 mg/dL Normal 7 - 25 mg/dL [facility]; [place] [employer] [facility] No Panel Informationon 02-08 BUN/CREATININE RATIO NOT APPLICABLE Normal 6 - 22 [facility]; [place] [employer] [facility] CHOL/HDLC RATIO 3.[address] [facility]; [place] [employer] [facility] eGFR NON-AFR. BRITISH 102 Normal [facility]; [place] [employer] [facility] GLOBULIN 2.5 Normal 1.9 - 3.7 [facility]; [place] [employer] [facility] NON HDL CHOLESTEROL 174 Abnormal [facility]; [place] [employer] [facility] Laboratory - Chemistry and C hemistry - challengeon 03-17-2018 TSH Qn 0.52 m[IU]/L Normal 0.40 - 4.50 {mIU/L} [facility].; [place] [employer] [facility]. Laboratory - Chemistry and C hemistry - challengeon 03-16-2017 TSH Qn 1.22 m[IU]/L Normal 0.40 - 4.50 {mIU/L} [facility].; [place] [employer] [facility]. Laboratory - Chemistry and C hemistry - challengeon 03-09-2016 TSH Qn 0.58 m[IU]/L Normal 0.40 - 4.50 {mIU/L} [facility].; [place] [employer] [facility]. Laboratory - Chemistry and C hemistry - challengeon 03-03-2015 TSH Qn 0.41 m[IU]/L Normal 0.40 - 4.50 {mIU/L} [place] [employer] [facility].; [employer]. Laboratory - Chemistry and C hemistry - challengeon 02-04-2014 TSH Qn 1.05 m[IU]/L Normal 0.40 - 4.50 {mIU/L} [place] [employer] [facility].; [facility] Laboratory - Chemistry and C hemistry - challengeon 01-20-2013 TSH Qn 0.89 m[IU]/L Normal 0.40 - 4.50 {mIU/L} [facility].; [facility] Laboratory - Chemistry and C hemistry - challengeon 10-20-2011 TSH Qn 0.74 m[IU]/L Normal 0.40 - 4.50 {mIU/L} [facility].; [facility] Laboratory - Chemistry and C hemistry - challengeon 11-05-2010 TSH Qn 0.47 m[IU]/L Normal 0.40 - 4.50 {mIU/L} [facility].; [facility] Laboratory - Chemistry and C hemistry - challengeon 12-11-2009 TSH Qn 0.82 m[IU]/L Normal 0.40 - 4.50 {mIU/L} [facility].; [facility], [facility] Vital Signs Date Time Vital Sign Value Performing Clinician Facility 12-16-2023 09:41-0400 Body height 173.99 cm Sukhwinder Rodriguez [facility].; [facility] 12-16-2023 09:41-0400 Body mass index (BMI) [Ratio] 34.91 kg/m2 Sukhwinder Michael [facility].; [facility] 12-16-2023 09:41-0400 Body surface area Derived from formula 2.19 m2 Sukhwinder Rodriguez [facility].; [facility] 12-16-2023 09:41-0400 Body weight 105.69 kg Sukhwinder Rodriguez [facility].; [facility] 12-16-2023 09:41-0400 Diastolic blood pressure 85 mm[Hg] Sukhwinder Michael [facility].; [facility], [facility]. Comment on above: Patient Position: Sitting; Cuff Location : Left Arm; Cuff Size: Standard 12-16-2023 09:41-0400 Heart rate 98 /min Sukhwinder Michael [facility], [facility].; [employer]. Comment on above: Pattern: Regular 12-16-2023 09:41-0400 Systolic blood pressure 171 mm[Hg] Sukhwinder Rodriguez [facility].; [employer]. Comment on above: Patient Position: Sitting; Cuff Location : Left Arm; Cuff Size: Standard 11-30-2023 15:48-0400 Body height 173.99 cm Chasity Tanisha [employer] Work Phone: [place] [employer].; [employer]. 11-30-2023 15:48-0400 Body mass index (BMI) [Ratio] 35.06 kg/m2 Chasity Tanisha [employer] Work Phone: [employer]; [place] [employer]. 11-30-2023 15:48-0400 Body surface area Derived from formula 2.2 m2 Chasity Tanisha [employer] Work Phone: [employer]; [employer]. 11-30-2023 15:48-0400 Body weight 106.14 kg Chasity Tanisha [employer] Work Phone: [employer]; [employer]. 11-30-2023 15:48-0400 Diastolic blood pressure 90 mm[Hg] Chasity Tanisha [employer] Work Phone: [employer]; [employer]. Comment on above: Patient Position: Sitting; Cuff Location : Left Arm; Cuff Size: Large 11-30-2023 15:48-0400 Heart rate 94 /min Chasity Tanisha [employer] Work Phone: [employer].; [employer]. Comment on above: Pattern: Regular 11-30-2023 15:48-0400 Systolic blood pressure 158 mm[Hg] Chasity Tanisha [employer] Work Phone: [employer].; [employer]. Comment on above: Patient Position: Sitting; Cuff Location : Left Arm; Cuff Size: Large 11-14-2023 13:15-0400 Body height 173.99 cm Beckie Knox [employer] [facility] 11-14-2023 13:15-0400 Body mass index (BMI) [Ratio] 35.66 kg/m2 Beckie Knox [facility] 11-14-2023 13:15-0400 Body surface area Derived from formula 2.21 m2 Beckie Knox [facility] 11-14-2023 13:15-0400 Body weight 107.96 kg Beckie Knox [facility], [facility]. 11-14-2023 13:15-0400 Diastolic blood pressure 90 mm[Hg] Beckie Knox [facility] [employer] [facility] Comment on above: Patient Position: Sitting; Cuff Location : Left Arm; Cuff Size: Large 11-14-2023 13:15-0400 Heart rate 76 /min Beckie Knox [facility] [employer] [facility] Comment on above: Pattern: Regular 11-14-2023 13:15-0400 Systolic blood pressure 145 mm[Hg] Beckie Knox [facility] [employer] [facility] Comment on above: Patient Position: Sitting; Cuff Location : Left Arm; Cuff Size: Large 11-11-2023 10:40-0400 Body height 173.99 cm Sukhwinder Rodriguez [employer] [facility] 11-11-2023 10:40-0400 Body mass index (BMI) [Ratio] 35.96 kg/m2 Sukhwinder Michael [facility] 11-11-2023 10:40-0400 Body surface area Derived from formula 2.22 m2 Sukhwinder Michael [employer] [facility] [place] [employer] [facility] 11-11-2023 10:40-0400 Body weight 108.86 kg Sukhwinder Michael [employer] [facility] [place] [employer] [facility]. 11-11-2023 10:40-0400 Diastolic blood pressure 87 mm[Hg] Sukhwinder Rodriguez [facility].; [place] [employer] [facility], [facility]. Comment on above: Patient Position: Sitting; Cuff Location : Left Arm; Cuff Size: Standard 11-11-2023 10:40-0400 Heart rate 74 /min Sukhwinder Rodriguez [facility], [facility].; [facility], [facility]. Comment on above: Pattern: Regular 11-11-2023 10:40-0400 Inhaled oxygen concentration 21 % Sukhwindermal Rodriguez [facility].; [employer] [facility], [facility]. Comment on above: Room air 11-11-2023 10:40-0400 SaO2% (BldA) [Mass fraction] 97 % Sukhwinder Michael [facility].; [place] [employer] [facility], [facility]. 11-11-2023 10:40-0400 Systolic blood pressure 148 mm[Hg] Sukhwinder Rodriguez [facility].; [employer] [facility], [employer]. Comment on above: Patient Position: Sitting; Cuff Location : Left Arm; Cuff Size: Standard 10-10-2023 10:28-0400 Body height 173.99 cm Priscila Mcleod MD Work Phone: [facility] Hospital[facility] [facility].; [place] [employer] [facility], [facility]. 10-10-2023 10:28-0400 Body mass index (BMI) [Ratio] 36.26 kg/m2 Priscila Mcleod MD Work Phone: [facility].; [facility]. 10-10-2023 10:28-0400 Body surface area Derived from formula 2.23 m2 Priscila Mcleod MD Work Phone: [facility].; [place] [employer] [facility]. 10-10-2023 10:28-0400 Body weight 109.77 kg Priscila Mcleod MD Work Phone: [facility].; [employer], [employer]. 10-10-2023 10:28-0400 Diastolic blood pressure 82 mm[Hg] Priscila Mcleod MD Work Phone: [facility].; [employer]. Comment on above: Patient Position: Sitting; Cuff Location : Left Arm; Cuff Size: Standard 10-10-2023 10:28-0400 Heart rate 71 /min Priscila Mcleod MD Work Phone: [facility].; [employer]. Comment on above: Pattern: Regular 10-10-2023 10:28-0400 Systolic blood pressure 132 mm[Hg] Priscila Mcleod MD Work Phone: [facility] [employer]. Comment on above: Patient Position: Sitting; Cuff Location : Left Arm; Cuff Size: Standard 09-09-2023 15:17-0400 Body height 173.99 cm Priscila Mcleod MD Work Phone: [facility] [employer].; [employer]. 09-09-2023 15:17-0400 Body mass index (BMI) [Ratio] 36.11 kg/m2 Priscila Mcleod MD Work Phone: [place] [employer] [facility].; [employer] [facility]. 09-09-2023 15:17-0400 Body surface area Derived from formula 2.22 m2 Priscila Mcleod MD Work Phone: [place] [employer].; [employer]. 09-09-2023 15:17-0400 Body temperature 981 [degF] Priscila Mcleod MD Work Phone: [place] [employer].; [employer]. 09-09-2023 15:17-0400 Body weight 109.32 kg Priscila Mcleod MD Work Phone: [place] [employer].; [employer]. 09-09-2023 15:17-0400 Diastolic blood pressure 84 mm[Hg] Priscila Mcleod MD Work Phone: [place] [employer].; [employer]. Comment on above: Patient Position: Sitting; Cuff Location : Left Arm; Cuff Size: Standard 09-09-2023 15:17-0400 Heart rate 101 /min Priscila Mcleod MD Work Phone: [facility], [employer] [facility]. Comment on above: Pattern: Regular 09-09-2023 15:17-0400 Systolic blood pressure 155 mm[Hg] Priscila Mcleod MD Work Phone: [facility], [employer].; [employer]. Comment on above: Patient Position: Sitting; Cuff Location : Left Arm; Cuff Size: Standard 07-27-2022 14:48-0400 Body weight 112.49 kg Sukhwinder Rodriguez LPN [facility], [facility].; [employer] [facility], [employer]. 07-27-2022 14:48-0400 Diastolic blood pressure 84 mm[Hg] Sukhwinder Rodriguez LPN [facility], [employer].; [employer], [employer]. Comment on above: Patient Position: Sitting; Cuff Location : Left Arm; Cuff Size: Standard 07-27-2022 14:48-0400 Heart rate 77 /min Sukhwinder Rodriguez LPN [facility], [employer].; [employer]. Comment on above: Pattern: Regular 07-27-2022 14:48-0400 Systolic blood pressure 130 mm[Hg] Sukhwinder Rodriguez LPN [facility], [employer].; [employer], [employer]. Comment on above: Patient Position: Sitting; Cuff Location : Left Arm; Cuff Size: Standard 04-02-2021 10:52-0500 Body height 173.99 cm Suze Fontaine LPN [facility], Inc.; [facility], [facility]. 04-02-2021 10:52-0500 Body mass index (BMI) [Ratio] 36.41 kg/m2 Suze Fontaine LPN [facility], [facility].; [place] [employer] [facility], [facility]. 04-02-2021 10:52-0500 Body surface area Derived from formula 2.23 m2 Suze Fontaine LPN [facility], [facility].; [place] [employer] [facility], [facility]. 04-02-2021 10:52-0500 Body weight 110.22 kg Suze Fontaine LPN [facility], [facility].; [place] [employer] [facility], [employer]. 04-02-2021 10:52-0500 Diastolic blood pressure 74 mm[Hg] Suze Fontaine LPN [facility], Inc.; [employer] [facility], [employer]. Comment on above: Patient Position: Sitting; Cuff Location : Left Arm; Cuff Size: Standard 04-02-2021 10:52-0500 Heart rate 73 /min Suze Fontaine LPN [facility], Inc.; [employer] [facility], [employer]. Comment on above: Pattern: Regular 04-02-2021 10:52-0500 Systolic blood pressure 117 mm[Hg] [facility], Inc.; [employer], [employer]. Comment on above: Patient Position: Sitting; Cuff Location : Left Arm; Cuff Size: Standard 06-11-2020 07:42-0400 Body height 173.99 cm ShaniquaWendy Knox LPN [facility], Inc.; [place] [employer] [facility], [employer]. 06-11-2020 07:42-0400 Body mass index (BMI) [Ratio] 34.91 kg/m2 ShaniquaWendy Somersey ZEB [facility], Inc.; [place] [employer] [facility], [employer]. 06-11-2020 07:42-0400 Body surface area Derived from formula 2.19 m2 ShaniquaWendy Knox LPN [facility], Inc.; [employer] [facility], Inc. 06-11-2020 07:42-0400 Body weight 105.69 kg Beckie Nguyen [place] ZEB [facility], [facility].; [employer] [facility], Inc. 06-11-2020 07:42-0400 Diastolic blood pressure 83 mm[Hg] ShaniquaWendy Somersey ZEB [facility], Inc.; [employer] [facility], [employer]. Comment on above: Patient Position: Sitting; Cuff Location : Left Arm; Cuff Size: Large 06-11-2020 07:42-0400 Heart rate 80 /min Beckie Nguyen Abilio ZEB [facility], Inc.; [employer], [employer]. Comment on above: Pattern: Regular 06-11-2020 07:42-0400 Systolic blood pressure 122 mm[Hg] Beckie Nguyen [place] ZEB [facility], Inc.; [employer], [employer]. Comment on above: Patient Position: Sitting; Cuff Location : Left Arm; Cuff Size: Large 02-14-2019 09:47-0500 Body height 173.99 cm Beckie Knox LPN [employer] [facility], Inc.; [employer], [employer] 02-14-2019 09:47-0500 Body mass index (BMI) [Ratio] 33.86 kg/m2 Beckie Knox LPN [employer] [facility], Inc.; [employer], [employer] 02-14-2019 09:47-0500 Body surface area Derived from formula 2.16 m2 Beckie Knox [employer] [facility], Inc.; [employer], Inc[employer] 02-14-2019 09:47-0500 Body weight 102.51 kg Beckie Knox LPN [employer], Inc.; [employer], Inc[employer] 02-14-2019 09:47-0500 Diastolic blood pressure 79 mm[Hg] Beckie Knox LPN [employer] [facility], Inc.; [employer], [employer] Comment on above: Patient Position: Sitting; Cuff Location : Left Arm; Cuff Size: Large 02-14-2019 09:47-0500 Heart rate 77 /min Beckie Knox LPN [employer] [facility], Inc.; [employer], [employer] Comment on above: Pattern: Regular 02-14-2019 09:47-0500 Systolic blood pressure 124 mm[Hg] Beckie Knox LPN [employer] [facility], Inc.; [employer], [employer] Comment on above: Patient Position: Sitting; Cuff Location : Left Arm; Cuff Size: Large 03-22-2018 07:26-0500 Body height 173.99 cm Beckie Knox LPN [employer] [facility], Inc.; [employer], [employer] 03-22-2018 07:26-0500 Body mass index (BMI) [Ratio] 32.36 kg/m2 Beckie Knox [employer] [facility], Inc.; [employer], [employer] 03-22-2018 07:26-0500 Body surface area Derived from formula 2.12 m2 Beckie Knox [employer] [facility], Inc.; [employer], Inc[employer] 03-22-2018 07:26-0500 Body weight 97.98 kg Beckie Knox LPN [employer], Inc.; [employer], Inc[employer] 03-22-2018 07:26-0500 Diastolic blood pressure 77 mm[Hg] Beckie Knox LPN [employer], [employer].; [employer]. Comment on above: Patient Position: Sitting; Cuff Location : Left Arm; Cuff Size: Large 03-22-2018 07:26-0500 Heart rate 69 /min Beckie Knox LPN [employer], Inc.; [employer], [employer] Comment on above: Pattern: Regular 03-22-2018 07:26-0500 Systolic blood pressure 124 mm[Hg] Beckie Knox LPN [employer], Inc.; [employer], [employer] Comment on above: Patient Position: Sitting; Cuff Location : Left Arm; Cuff Size: Large 09-05-2017 14:20-0400 Body height 173.99 cm Alma aHyward RN [employer] [facility], Inc.; [employer], [employer] 09-05-2017 14:20-0400 Body mass index (BMI) [Ratio] 31.47 kg/m2 Alma Hayward RN [employer] [facility], Inc.; [employer], [employer] 09-05-2017 14:20-0400 Body surface area Derived from formula 2.1 m2 Alma Hayward RN [employer], [employer], [employer] 09-05-2017 14:20-0400 Body weight 95.26 kg Alma Hayward RN [employer], Inc.; [employer], [employer] 09-05-2017 14:20-0400 Diastolic blood pressure 82 mm[Hg] Alma Hayward RN [employer], [employer]. Comment on above: Patient Position: Sitting; Cuff Location : Left Arm; Cuff Size: Standard 09-05-2017 14:20-0400 Heart rate 86 /min Alma Hayward RN [employer], [employer]. Comment on above: Pattern: Regular 09-05-2017 14:20-0400 Systolic blood pressure 135 mm[Hg] Alma Hayward RN [employer], Inc.; [employer]. Comment on above: Patient Position: Sitting; Cuff Location : Left Arm; Cuff Size: Standard 03-16-2017 07:41-0500 Body height 173.99 cm Beckie Knox [employer] [facility], Inc.; [employer], [employer] 03-16-2017 07:41-0500 Body mass index (BMI) [Ratio] 32.21 kg/m2 Beckie Knox [employer] [facility], Inc.; [employer], [employer] 03-16-2017 07:41-0500 Body surface area Derived from formula 2.12 m2 Beckie Knox [employer] [facility], Inc.; [employer], [employer] 03-16-2017 07:41-0500 Body weight 97.52 kg Beckie Knox [employer] [facility], Inc.; [employer], [employer]. 03-16-2017 07:41-0500 Diastolic blood pressure 84 mm[Hg] Beckie Knox [employer] [facility], Inc.; [employer], [employer] Comment on above: Patient Position: Sitting; Cuff Location : Left Arm; Cuff Size: Large 03-16-2017 07:41-0500 Heart rate 98 /min Beckie Knox [employer] [facility], Inc.; [employer], [employer]. Comment on above: Pattern: Regular 03-16-2017 07:41-0500 Systolic blood pressure 134 mm[Hg] Beckie Knox [employer] [facility], Inc.; [employer], [employer] Comment on above: Patient Position: Sitting; Cuff Location : Left Arm; Cuff Size: Large 03-12-2016 08:00-0500 Body weight 97.52 kg Prachi Palmer LPN [employer] [facility], Inc.; [employer], [employer] 03-12-2016 08:00-0500 Diastolic blood pressure 68 mm[Hg] Prachi Palmer [employer] [facility], Inc.; [employer], [employer]. Comment on above: Patient Position: Sitting; Cuff Location : Left Arm; Cuff Size: Standard 03-12-2016 08:00-0500 Heart rate 84 /min Prachi Palmer LPN [employer] [facility], Inc.; [employer], [employer]. Comment on above: Pattern: Regular 03-12-2016 08:00-0500 Systolic blood pressure 116 mm[Hg] Prachi Palmer LPN [facility], Inc.; [employer], [employer]. Comment on above: Patient Position: Sitting; Cuff Location : Left Arm; Cuff Size: Standard 06-16-2015 08:44-0400 Body height 173.99 cm lAma Murray LPN [facility], Inc.; [employer], [employer]. 06-16-2015 08:44-0400 Body mass index (BMI) [Ratio] 31.62 kg/m2 Alma Murray [facility] [employer] [facility], Inc.; [employer], [employer]. 06-16-2015 08:44-0400 Body surface area Derived from formula 2.1 m2 Alma Murray [employer] [facility], Inc.; [employer], [employer]. 06-16-2015 08:44-0400 Body temperature 97.8 [degF] Alma Murray [facility] [employer] [facility], Inc.; [employer], [employer]. Comment on above: Method: Tympanic 06-16-2015 08:44-0400 Body weight 95.71 kg Almadestiny Murray LPN [place] [employer] [facility], Inc.; [employer], [employer]. 06-16-2015 08:44-0400 Diastolic blood pressure 88 mm[Hg] Alma Murray [employer] [place] [employer] [facility], Inc.; [employer], [employer]. Comment on above: Patient Position: Sitting; Cuff Location : Right Arm; Cuff Size: Standard 06-16-2015 08:44-0400 Heart rate 77 /min Alma Murray LPN [place] [employer] [facility], Inc.; [employer], [employer]. Comment on above: Pattern: Regular 06-16-2015 08:44-0400 Systolic blood pressure 127 mm[Hg] Almadestiny Murray [place] [employer] [facility], Inc.; [employer], [employer]. Comment on above: Patient Position: Sitting; Cuff Location : Right Arm; Cuff Size: Standard 03-05-2015 09:28-0500 Body height 173.99 cm Priscila Mcleod MD Work Phone: [employer]. 03-05-2015 09:28-0500 Body mass index (BMI) [Ratio] 31.17 kg/m2 Priscila Mcleod MD Work Phone: [employer] 03-05-2015 09:28-0500 Body surface area Derived from formula 2.09 m2 Priscila Mcleod MD Work Phone: [employer].; [employer] 03-05-2015 09:28-0500 Body weight 94.35 kg Priscila Mcleod MD Work Phone: [employer].; [employer]. 03-05-2015 09:28-0500 Diastolic blood pressure 88 mm[Hg] Priscila Mcleod MD Work Phone: [employer].; [employer] Comment on above: Patient Position: Sitting; Cuff Location : Left Arm; Cuff Size: Standard 03-05-2015 09:28-0500 Heart rate 76 /min Priscila Mcleod MD Work Phone: [employer].; [employer]. Comment on above: Pattern: Regular 03-05-2015 09:28-0500 Systolic blood pressure 130 mm[Hg] Priscila Mcleod MD Work Phone: [employer].; [employer]. Comment on above: Patient Position: Sitting; Cuff Location : Left Arm; Cuff Size: Standard 02-26-2014 09:03-0500 Body height 173.99 cm Beckie Knox [employer]. 02-26-2014 09:03-0500 Body mass index (BMI) [Ratio] 30.87 kg/m2 Beckie Knox [employer].; [employer]. 02-26-2014 09:03-0500 Body surface area Derived from formula 2.08 m2 Beckie Knox [employer].; [employer]. 02-26-2014 09:03-0500 Body weight 93.44 kg Beckie Knox [employer].; [employer]. 02-26-2014 09:03-0500 Diastolic blood pressure 83 mm[Hg] Beckie Knox [facility], Inc.; [employer] Comment on above: Patient Position: Sitting; Cuff Location : Left Arm; Cuff Size: Large 02-26-2014 09:03-0500 Heart rate 85 /min Beckie Knox [facility], Inc.; [employer] Comment on above: Pattern: Regular 02-26-2014 09:03-0500 Systolic blood pressure 123 mm[Hg] Beckie Knox [facility], Inc.; [employer] Comment on above: Patient Position: Sitting; Cuff Location : Left Arm; Cuff Size: Large 02-23-2013 07:20-0500 Body weight 91.63 kg Prachi E Spencer [facility], Inc.; [employer] 02-23-2013 07:20-0500 Diastolic blood pressure 77 mm[Hg] Prachi Madeline Spencer [facility], Inc.; [employer] Comment on above: Patient Position: Sitting; Cuff Location : Left Arm; Cuff Size: Standard 02-23-2013 07:20-0500 Heart rate 84 /min Prachi Madeline Spencer [facility] Inc.; [employer], [employer]. Comment on above: Pattern: Regular 02-23-2013 07:20-0500 Systolic blood pressure 124 mm[Hg] Prachi E Spencer [facility], Inc.; [employer], [employer]. Comment on above: Patient Position: Sitting; Cuff Location : Left Arm; Cuff Size: Standard 10-27-2011 10:34-0400 Body height 173.99 cm Beckie Knox [facility], Inc.; [employer], [employer]. 10-27-2011 10:34-0400 Body mass index (BMI) [Ratio] 31.62 kg/m2 [facility] Abilio [facility], Inc.; [employer], [employer] 10-27-2011 10:34-0400 Body surface area Derived from formula 2.1 m2 [facility], Inc.; [employer], [employer]. 10-27-2011 10:34-0400 Body weight 95.71 kg Beckie Knox LPN [facility], Inc.; [employer] [facility], [employer]. 10-27-2011 10:34-0400 Diastolic blood pressure 75 mm[Hg] Beckie Knox LPN [facility], Inc.; [employer] Comment on above: Patient Position: Sitting; Cuff Location : Left Arm; Cuff Size: Large 10-27-2011 10:34-0400 Heart rate 77 /min Beckie Knox LPN [facility], Inc.; [employer] Comment on above: Pattern: Regular 10-27-2011 10:34-0400 Systolic blood pressure 115 mm[Hg] Beckie Knox LPN [facility], Inc.; [employer] Comment on above: Patient Position: Sitting; Cuff Location : Left Arm; Cuff Size: Large 11-11-2010 09:48-0400 Body height 173.99 cm Beckie Knox [facility], Inc.; [employer], [employer] 11-11-2010 09:48-0400 Body mass index (BMI) [Ratio] 31.02 kg/m2 Beckie nKox [facility], Inc.; [employer], [employer] 11-11-2010 09:48-0400 Body surface area Derived from formula 2.09 m2 Beckie Knox [employer] [facility], Inc.; [employer] [facility], Inc. 11-11-2010 09:48-0400 Body weight 93.9 kg Beckie Knox [facility], Inc.; [employer], [employer] 11-11-2010 09:48-0400 Diastolic blood pressure 77 mm[Hg] Beckie Knox [facility], Inc.; [employer], [employer]. Comment on above: Patient Position: Sitting; Cuff Location : Left Arm; Cuff Size: Large 11-11-2010 09:48-0400 Heart rate 79 /min Beckie Knox LPN [facility], Inc.; [employer], [employer]. Comment on above: Pattern: Regular 11-11-2010 09:48-0400 Systolic blood pressure 119 mm[Hg] Beckie Knox LPN [facility], [facility].; [employer] [facility], [employer]. Comment on above: Patient Position: Sitting; Cuff Location : Left Arm; Cuff Size: Large 12-17-2009 10:49-0400 Body height 173.99 cm Beckie Knox [employer] [facility], [facility].; [facility], [employer]. 12-17-2009 10:49-0400 Body mass index (BMI) [Ratio] 31.32 kg/m2 Beckie Knox [facility], [facility].; [place] [employer] [facility], [employer]. 12-17-2009 10:49-0400 Body surface area Derived from formula 2.09 m2 Shaniqua Abilio [facility], [facility].; [facility], [facility]. 12-17-2009 10:49-0400 Body weight 94.8 kg Beckie Knox [facility], [facility].; [place] [employer] [facility], [employer]. 12-17-2009 10:49-0400 Diastolic blood pressure 80 mm[Hg] Beckie Knox [facility].; [employer] [facility]. Comment on above: Patient Position: Sitting; Cuff Location : Left Arm; Cuff Size: Large 12-17-2009 10:49-0400 Heart rate 65 /min Beckie Knox [facility], [facility].; [employer] [facility], [employer]. Comment on above: Pattern: Regular 12-17-2009 10:49-0400 Systolic blood pressure 120 mm[Hg] Beckie Knox [facility], [facility].; [employer] [facility]. Comment on above: Patient Position: Sitting; Cuff Location : Left Arm; Cuff Size: Large Encounters Encounter Date Encounter Type Care Provider Facility Start: 12-20-2023 End: 12-20-2023 Orders Priscila Mcleod MD [facility]. Start: 12-16-2023 End: 12-16-2023 Medication Priscila [facility]cleod [facility] Start: 12-16-2023 End: 12-16-2023 Office outpatient visit 15 minutes Priscila Mcleod MD Work Phone: [employer] Start: 11-30-2023 End: 11-30-2023 Office outpatient visit 15 minutes Priscila Mcleod MD Work Phone: [employer]. Start: 11-14-2023 End: 11-14-2023 Office outpatient visit 15 minutes Priscila Mcleod MD Work Phone: [employer]. Start: 11-14-2023 End: 11-14-2023 Telephone follow-up Priscila Mcleod MD Work Phone: [employer]. Start: 11-14-2023 Follow-up encounter Priscila salas MD Work Phone: [employer]. Start: 11-13-2023 End: 11-13-2023 Emergency department patient visit KERWIN Correa [facility] Start: 11-11-2023 End: 11-11-2023 Office outpatient visit 15 minutes Priscila Mcleod MD Work Phone: [employer]. Start: 10-10-2023 End: 10-10-2023 Office outpatient visit 15 minutes Priscila Mcleod MD Work Phone: [employer]. Start: 10-10-2023 Follow-up encounter Priscila salas MD Work Phone: [employer]. Start: 10-03-2023 End: 10-03-2023 Orders Priscila Mcleod MD Work Phone: [employer]. Start: 09-09-2023 End: 09-09-2023 Office outpatient visit 15 minutes Priscila Mcleod MD Work Phone: [employer]. Start: 07-27-2022 End: 07-27-2022 Office outpatient visit 15 minutes Priscila Mcleod MD Work Phone: [employer]. Start: 07-22-2022 End: 07-22-2022 Orders Priscila Mcleod MD Work Phone: [employer]. Start: 04-02-2021 End: 04-02-2021 Office outpatient visit 15 minutes Priscila Mcleod MD Work Phone: [employer]. Start: 03-26-2021 End: 03-26-2021 Orders Priscila Mcleod MD Work Phone: [employer]. Start: 06-11-2020 End: 06-11-2020 Office outpatient visit 15 minutes Priscila Mcleod MD Work Phone: [employer]. Start: 06-04-2020 End: 06-10-2020 Orders Priscila Mcleod MD Work Phone: [employer]. Start: 02-14-2019 End: 02-13-2019 Historical Summary Priscila Mcleod MD Work Phone: [employer]. Start: 02-14-2019 End: 02-14-2019 Office outpatient visit 15 minutes Priscila Mcleod MD Work Phone: [employer]. Start: 09-27-2018 End: 09-27-2018 Telephone follow-up Priscila Mcleod MD Work Phone: [employer]. Start: 05-15-2018 End: 05-16-2018 Orders Priscila Mcleod MD Work Phone: [employer]. Start: 03-22-2018 End: 03-22-2018 Office outpatient visit 15 minutes Priscila Mcleod MD Work Phone: [employer]. Start: 03-17-2018 End: 03-20-2018 Orders Priscila Mcleod MD Work Phone: [employer]. Start: 09-05-2017 End: 09-05-2017 Office outpatient visit 15 minutes Priscila Mcleod MD Work Phone: [employer]. Start: 08-09-2017 End: 08-09-2017 Telephone follow-up Priscila Mcleod MD Work Phone: [employer]. Start: 08-06-2017 End: 08-06-2017 Historical Summary Priscila Mcleod MD Work Phone: [employer]. Start: 03-16-2017 End: 03-16-2017 Office outpatient visit 15 minutes Priscila Mcleod MD Work Phone: [employer]. Start: 03-08-2017 End: 03-08-2017 Telephone follow-up Priscila Mcleod MD Work Phone: [employer]. Start: 03-12-2016 End: 03-12-2016 Office outpatient visit 15 minutes Priscila Mcleod MD Work Phone: [employer]. Start: 03-09-2016 End: 03-09-2016 Orders Priscila Mcleod MD Work Phone: [employer]. Start: 06-16-2015 End: 06-16-2015 Office outpatient visit 15 minutes Priscila Mcleod MD Work Phone: [employer]. Start: 03-05-2015 End: 03-05-2015 Office outpatient visit 15 minutes Priscila Mcleod MD Work Phone: [employer]. Start: 03-03-2015 End: 03-03-2015 Orders Priscila Mcleod MD Work Phone: [employer]. Start: 02-26-2014 End: 02-26-2014 Office outpatient visit 15 minutes Priscila Mcleod MD Work Phone: [employer]. Start: 02-25-2014 End: 02-25-2014 Historical Summary Priscila Mcleod MD Work Phone: [employer]. Start: 02-04-2014 End: 02-05-2014 Orders Priscila Mcleod MD Work Phone: [employer]. Start: 02-23-2013 End: 02-23-2013 Patient encounter procedure Priscila Mcleod MD Work Phone: [employer]. Start: 01-20-2013 End: 01-22-2013 Orders Priscila Mcleod MD Work Phone: [employer]. Start: 12-07-2012 End: 12-07-2012 Medication Priscila Mcleod MD Work Phone: [employer]. Start: 10-27-2011 End: 10-27-2011 Patient encounter procedure Priscila Mcleod MD Work Phone: [facility] Start: 10-20-2011 End: 10-20-2011 Orders Priscila Mcleod MD Work Phone: [facility] Start: 11-11-2010 End: 11-11-2010 Patient encounter procedure Priscila Mcleod MD Work Phone: [facility] Start: 11-05-2010 End: 11-06-2010 Orders Priscila Mcleod MD Work Phone: [facility] Start: 12-17-2009 End: 12-17-2009 Patient encounter procedure Priscila Mcleod MD Work Phone: [facility] Start: 12-02-2009 End: 12-02-2009 Medication Priscila Mcleod MD Work Phone: [facility] Procedures Date Procedure Procedure Detail Performing Clinician Start: 11-13-2023 Urinalysis KERWIN SIMMONS Comment on above: Result Comment: URIN ALYSIS Performed By: #### [id number] #### [facility],[address] [place] [address] Start: 11-11-2023 End: 11-11-2023 Triamcinolone acet inj [...] Fontaine LPN Appendectomy Beckie Nguyen akilah marichuy [employer] Esophageal hiatus he rnia repair Beckie Nguyen Abilio [employer] Ligation of fallopian tube M rosendo Wendy Knox [employer] Subtotal thyroidectomy Beckie Knox [employer]ER Tonsillectomy Beckie Adams rios [employer] Plan of Treatment Date Care Activity Detail Author Start: 12-16-2023 Assay of folic acid serum FOLATE (74136) Start: 16-Dec-2023 09:47-04:00 Request [facility]; [facility] Start: 12-16-2023 25 hydroxy includes fractions if performed Vitamin D, 25-Hydroxy, LC/MS/MS ([id number]) Start: 16-Dec-2023 09:46-04:00 Request [facility]; [facility] Start: 12-16-2023 Cyanocobalamin vitamin b-12 VITAMIN B-12 SERUM (60763) Start: 16-Dec-2023 09:46-04:00 Request [facility]; [facility] Start: 12-16-2023 Assay of thyroid stimulating hormone tsh TSH (THYROID STIMULATING HORMONE) ([id number]) Start: 16-Dec-2023 09:46-04:00 Request [facility]; [facility] Start: 12-16-2023 Comprehensive metabolic panel CMP w/ GFR* ([id number]) Start: 16-Dec-2023 09:46-04:00 Request [facility]; [employer]. Start: 12-16-2023 Blood count complete auto&auto difrntl wbc CBC, PLATELETS & AUT DIFF (F) ([id number]) Start: 16-Dec-2023 09:46-04:00 Request [facility]; [employer]. Start: 10-10-2023 Patient encounter procedure Medical; RTN OFFICE VISIT - rtn [facility] Start: 10-Oct-2023 10:30-04:00 MD Priscila Mcleod Appointment Request [facility] Start: 10-03-2023 Assay of thyroid stimulating hormone tsh TSH (THYROID STIMULATING HORMONE) ([id number]) Start: 03-Oct-2023 Request [facility]; [employer]. dexAMETHasone so d phos (bulk) 100 % powder Ordered: 6-Sep-202MD Priscila Florez [employer]; [facility] Immunizations Immunization Date Immunization Notes Care Provider Griffin dunlap 05-31-2020 COVID-Moderna (100 MCG/0.5 ML) Priscila Mcleod MD Work Phone: [facility] [employer]; [employer] Payers Date Payer Category Payer Unknown [id number] Unknown [employer] Unknown [id number] Social History Date Type Detail Facility Tobacco Use: Tobacco Use: ; Former smoker . [employer]; [employer] Female [facility] [place]; [employer] Work Phone: Ex-smoker [facility]; [employer] Work Phone: Summary Purpose Family History No Family History Records FoundNo Family History Records Found Advance Directives No Advanced Directives Records FoundNo Advanced Directives Records Found Additional Source Comments INFORMATION SOURCE (unrecogn ized section and content) DATE CREATED AUTHOR 11/14/2023 [facility] DATE CREATED AUTHOR AUTHOR'S ORGANIZ [...] BE BASED ON THE PRIMARY CLINICAL RECORDS. [employer] provides no warranty or guarantee of the accuracy or completeness of information in this document.
--- OUTSIDE RECORDS SUMMARY | 2024-01-03 19:55 | XMS RPT_ITS | CCD ---
Author Organization [facility] Care Team Providers Care Blow Torch Burner Name Role Phone Priscila Mcleod MD Unavailable Priscila Mcleod MD Unavailable Tashi BOLES., Dr. Burt Unavailable Physical Therapy, Philip Pomleelee Unavailable Tanisha RAMP AGENT, Chasity Unavailable Tano RAMP AGENT, Petrolia Unavailable Unavailable Spencer RAMP AGENT, Prachi Correa Unavailable Unavailable Isaias RAMP AGENT, Shae Unavailable Unavailable Brendan Nina MD Unavailable Yesy ANG, Alma Guerrero Unavailable Unavaila ble Marthey RAMP AGENT, Jasmyn Unavailable Unavailable Michael RAMP AGENT, Sukhwinder Unavailable Unavailable Fontaine RAMP AGENT, Suze Unavailable Unavailable Awais RAMP AGENT, Romi M Unavailable Unavailab le Abilio RAMP AGENT, Beckie Nguyen Unavailable Unavailab le Terry RAMP AGENT, Christine Unavailable Unavailabl e Terri RAMP AGENT, Alma Salas Unavailable Unavaila ble Unavailable Unavailable Paco DAHL, Clarisse Unavailable Unavailable Davy RAMP AGENT, Josie Unavailable Unavailable KERWIN ALVARADO Admitting Unavailable KERWIN ALVARADO Attending Unavailable KERWIN ALVARADO Primary Care Unavailable PRISCILA MCLEOD Consulting Unavailable PRISCILA MCLEOD Referring Unavailable PROVIDER, UNKNOWN Consulting Unavailable PROVIDER, UNKNOWN Consulting Unavailable PROVIDER, UNKNOWN Consulting Unavailable Jean Marie Cali MD Unavailable [phone] [facility] Unavailable Medications Current Medications [...] for Chronic condition follow-up : reviewed by [facility] 07-27-2022 Unclassified (18 sources) Follow up for [...] for Chronic condition follow-up : reviewed by [facility] 04-02-2021 Unclassified (18 sources) Follow Up for [...] Multiple chronic conditions follow-up : reviewed by [facility] 06-11-2020 Unclassified (18 sources) Follow Up for [...] from hospital stay - Name of Hospital: [facility]. Date of Admission: 08/04/2017. Date of Discharge: [...] transitioning into care from an emergency room ([facility] 08/04/2017) and a summary of care was [...] reviewed by [facility] 03-12-2016 Unclassified (18 sources) [facility] Routine Follow up - The [...] for Routine chronic follow-up : reviewed by [facility] 03-05-2015 Unclassified (18 sources) Follow up for [...] Multiple chronic conditions follow-up : reviewed by [facility] 02-26-2014 Unclassified (17 sources) Follow Up for [...] transitioning into care from an emergency room ([facility] . 02-23-2013 Unclassified (18 sources) [...] transitioning into care from an emergency room ([facility] 08/04/2017) and a summary of care was reviewed. 09-05-2017 Unclassified (2 sources) [ADDITIONAL REASON] Follow up from hospital stay - Name of Hospital: [facility]. Date of Admission: 08/04/2017. Date of Discharge: [...] transitioning into care from an emergency room ([facility]) . 02-23-2013 Unclassified (1 source) [ADDITIONAL REASON] [...] Note for Ear pain : reviewed by [facility] 09-09-2023 Unclassified (18 sources) Follow Up for [...] Multiple chronic conditions follow-up : reviewed by [facility] 02-14-2019 Unclassified (18 sources) Gastroesophageal Reflux Disease [...] here to follow-up after Emergency Room/Urgent Care ([facility] with generalized illness cause not clear.) on : (11-13-23). 11-14-2023 Unclassified (9 sources) Follow up consultation - The patient is here to follow-up after Emergency Room/Urgent Care ([facility] with generalized illness cause not clear, [...] Pt advised to take Aleve and seek landcare officer. Pt saw chiropractor twice and has been [...] on above: Performed By: #### 6 399, 49439, 927, 899, 82631 #### [facility] [place] [address] Piston Maker: Armani Oakes MD Basophils/100 WBC (Bld) 0.3 % Normal [facility] Comment on above: Performed By: #### 6 399, 35752, 927, 899, 82455 #### [facility] [place] [address] Piston Maker: Armani Oakes MD Eosinophils (Bld) [#/Vol] 0.068 10*3/uL Normal 15-500 [facility] Comment on above: Performed By: #### 6 399, 08574, 927, 899, 90960 #### [facility] [place] [address] Piston Maker: Armani Oakes MD Eosinophils/100 WBC (Bld) 1.0 % Normal [facility] Comment on above: Performed By: #### 6 399, 27231, 927, 899, 06684 #### [facility] [place] [address] Piston Maker: Armani Oakes MD Erythrocyte distribution width (RBC) [Ratio] 13.0 % Normal 11.0-15.0 [facility] Comment on above: Performed By: #### 6 399, 23061, 927, 899, 64123 #### [facility] [place] [address] Piston Maker: Armani Oakes MD Hematocrit (Bld) [Volume fraction] 44.1 % Normal 35.0-45.0 [facility] Comment on above: Performed By: #### 6 399, 95909, 927, 899, 36677 #### [facility] of [place] [address] Piston Maker: Armani Oakes MD Hemoglobin (Bld) [Mass/Vol] 14.4 g/dL Normal 11.7-15.5 [facility] Comment on above: Performed By: #### 6 399, 93588, 927, 899, 28875 #### [facility] [place] [address] Piston Maker: Armani Oakes MD Lymphocytes (Bld) [#/Vol] 1.319 10*3/uL Normal 850-3900 [facility] Comment on above: Performed By: #### 6 399, 75999, 927, 899, 56386 #### [facility] [place] [address] Piston Maker: Armani Oakes MD Lymphocytes/100 WBC (Bld) 19.4 % Normal [facility] Comment on above: Performed By: #### 6 399, 42954, 927, 899, 88218 #### [facility] [place] [address] Piston Maker: Armani Oakes MD MCH (RBC) [Entitic mass] 31.9 pg Normal 27.0-33.0 [facility] Comment on above: Performed By: #### 6 399, 95236, 927, 899, 29852 #### [facility] [place] [address] Piston Maker: Armani Oakes MD MCHC (RBC) [Mass/Vol] 32.7 [...] clinical condition. Performed By: #### 6 399, 13027, 927, 899, 45936 #### [facility] [place] [address] Piston Maker: Armani Oakes MD MCV (RBC) [Entitic vol] 97.8 fL Normal 80.0-100.0 [facility] Comment on above: Performed By: #### 6 399, 71890, 927, 899, 54125 #### [facility] [place] [address] Piston Maker: Armani Oakes MD Monocytes (Bld) [#/Vol] 0.483 10*3/uL Normal 200-950 [facility] Comment on above: Performed By: #### 6 399, 00133, 927, 899, 20820 #### [facility] [place] [address] Piston Maker: Armani Oakes MD Monocytes/100 WBC (Bld) 7.1 % Normal [facility] Comment on above: Performed By: #### 6 399, 68803, 927, 899, 79689 #### [facility] [place] [address] Piston Maker: Armani Oakes MD Neutrophils (Bld) [#/Vol] 4.91 10*3/uL Normal 4107-9346 [facility] Comment on above: Performed By: #### 6 399, 58358, 927, 899, 41288 #### [facility] [place] [address] Piston Maker: Armani Oakes MD Neutrophils/100 WBC (Bld) 72.2 % Normal [facility] Comment on above: Performed By: #### 6 399, 57171, 927, 899, 54942 #### [facility] [place] [address] Piston Maker: Armani Oakes MD Platelet mean volume (Bld) [Entitic vol] 10.5 fL Normal 7.5-12.5 [facility] Comment on above: Performed By: #### 6 399, 98127, 927, 899, 24043 #### [facility] [place] [address] Piston Maker: Armani Oakes MD Platelets (Bld) [#/Vol] 266 10*3/uL Normal 140-400 [facility] Comment on above: Performed By: #### 6 399, 44153, 927, 899, 09996 #### [facility] [place] [address] Piston Maker: Armani Oakes MD RBC (Bld) [#/Vol] 4.51 10*6/uL Normal 3.80-5.10 [facility] Comment on above: Performed By: #### 6 399, 08939, 927, 899, 38103 #### [facility] [place] [address] Piston Maker: Armani Oakes MD WBC (Bld) [#/Vol] 6.8 10*3/uL Normal 3.8-10.8 [facility] Comment on above: Performed By: #### 6 399, 15656, 927, 899, 20205 #### [facility] [place] [address] Piston Maker: Armani Oakes MD [facility] 12-17-2023 Albumin [Mass/Vol] 4.6 g/dL Normal 3.6-5.1 [facility] Comment on above: Performed By: #### 6 399, 42158, 927, 899, 40489 #### [facility] [place] [address] Piston Maker: Armani Oakes MD Albumin/Globulin [Mass ratio] 1.7 {ratio} Normal 1.0-2.5 [facility] Comment on above: Performed By: #### 6 399, 64997, 927, 899, 36476 #### [facility] [place] [address] Piston Maker: Armani Oakes MD ALP [Catalytic activity/Vol] 77 U/L Normal 37-153 [facility] Comment on above: Performed By: #### 6 399, 41972, 927, 899, 33568 #### [facility] of [address], [address] [place] [address] Piston Maker: Armani Oakes MD ALT [Catalytic activity/Vol] 15 U/L Normal 6-29 [facility] Comment on above: Performed By: #### 6 399, 33366, 927, 899, 54758 #### [facility] of [address], [address] [place] [address] Piston Maker: Armani Oakes MD AST [Catalytic activity/Vol] 12 U/L Normal 10-35 [facility] Comment on above: Performed By: #### 6 399, 50933, 927, 899, 69427 #### [facility] of [address], [address] [place] [address] Piston Maker: Armani Oakes MD Bilirubin [Mass/Vol] 0.8 mg/dL Normal 0.2-1.2 [facility] Comment on above: Performed By: #### 6 399, 45279, 927, 899, 66336 #### [facility] [place] [address] Piston Maker: Armani Oakes MD BUN/CREATININE RATIO SEE NOTE: Normal 6-22 [facility] Comment on above: Result Comment: Not Reported: BUN and Creatinine are within reference range. Performed By: #### 6 399, 50804, 927, 899, 32235 #### [facility] of [address], [address] [place] [address] Piston Maker: Armani Oakes MD Calcium [Mass/Vol] 9.8 mg/dL Normal 8.6-10.4 [facility] Comment on above: Performed By: #### 6 399, 13738, 927, 899, 17213 #### [facility] of [address], [address] [place] [address] Piston Maker: Armani Oakes MD Chloride [Moles/Vol] 108 mmol/L Normal 98-110 [facility] Comment on above: Performed By: #### 6 399, 32180, 927, 899, 89539 #### [facility] [place] [address] Piston Maker: Armani Oakes MD CO2 [Moles/Vol] 25 mmol/L Normal 20-32 [facility] Comment on above: Performed By: #### 6 399, 07420, 927, 899, 03531 #### [facility] [place] [address] Piston Maker: Armani Oakes MD Creatinine [Mass/Vol] 0.68 mg/dL Normal 0.50-1.03 [facility] Comment on above: Performed By: #### 6 399, 30211, 927, 899, 51512 #### [facility] [place] [address] Piston Maker: Armani Oakes MD GFR/1.73 sq M.predicted among non-blacks MDRD (S/P/Bld) [Vol rate/Area] 101 mL/min/{1.73_m2} Normal > OR = 60 [facility] Comment on above: Performed By: #### 6 399, 80163, 927, 899, 76641 #### [facility] [place] [address] Piston Maker: Armani Oakes MD Globulin (S) [Mass/Vol] 2.7 g/dL Normal 1.9-3.7 [facility] Comment on above: Performed By: #### 6 399, 64899, 927, 899, 97523 #### [facility] [place] [address] Piston Maker: Armani Oakes MD Glucose [Mass/Vol] 101 mg/dL High 65-99 [facility] Comment on above: Result Comment: Fasting reference interval For someone without known diabetes, a glucose value between 100 and 125 mg/dL is consistent with prediabetes and should be confirmed with a follow-up test. Performed By: #### 6 399, 05010, 927, 899, 37883 #### [facility] [place] [address] Piston Maker: Armani Oakes MD Potassium [Moles/Vol] 3.8 mmol/L Normal 3.5-5.3 [facility] Comment on above: Performed By: #### 6 399, 03598, 927, 899, 43731 #### [facility] [place] [address] Piston Maker: Armani Oakes MD Protein [Mass/Vol] 7.3 g/dL Normal 6.1-8.1 [facility] Comment on above: Performed By: #### 6 399, 70407, 927, 899, 16709 #### [facility] [place] [address] Piston Maker: Armani Oakes MD Sodium [Moles/Vol] 142 mmol/L Normal 135-146 [facility] Comment on above: Performed By: #### 6 399, 01913, 927, 899, 05796 #### [facility] [place] [address] Piston Maker: Armani Oakes MD Urea nitrogen [Mass/Vol] 10 mg/dL Normal 7-25 [facility] Comment on above: Performed By: #### 6 399, 34187, 927, 899, 66873 #### [facility] [place] [address] Piston Maker: Armani Oakes MD FOLATE, SERUMon 12-17-2023 Folate [Mass/Vol] 12.5 ng/mL Normal [facility] Comment on above: Result Comment: Refe rence Range Low: <3.4 Borderline: 3.4-5.4 Normal: >5.4 Performed By: #### 6 399, 37848, 927, 899, 26136 #### [facility] [place] [address] Piston Maker: Armani Oakes MD TSHon 12-17-2023 TSH Qn 0.51 m[IU]/L Normal 0.40-4.50 [facility] Comment on above: Performed By: #### 6 399, 51049, 927, 899, 52106 #### [facility] [address], [address] [place] [address] Piston Maker: Armani Oakes MD VITAMIN B12on 12-17-2023 Cobalamin (Vitamin B12) [Mass/Vol] 1185 pg/mL High 200-1100 [facility] Comment on above: Performed By: #### 6 399, 30789, 927, 899, 62060 #### [facility] [address], [address] [place] [address] Piston Maker: Armani Oakes MD VITAMIN D,25-OH,TOTAL,IAon 1 VITAMIN [...] D, (D2,D3), LC/MS/MS is recommended: order code 53287 (patients >2yrs). See Note 1 Note 1 For additional information, please refer to http://education.[employer]/faq/RYF947 (This link is being provided for informational/ educational purposes only.) Performed By: #### 6 399, 91839, 927, 899, 02466 #### [facility] [address], [address] [place] [address] Piston Maker: Armani Oakes MD Laboratory - Chemistry and C hemistry - challengeon 12-16-2023 Albumin [Mass/Vol] 4.6 g/dL Normal 3.6 - 5.1 g/dL [facility], [facility].; [facility]. Albumin/Globulin [Mass ratio] 1.7 {ratio} Normal 1.0 - 2.5 [facility]; [facility] ALP [Catalytic activity/Vol] 77 U/L Normal 37 - 153 U/L [facility], [facility]. ALT [Catalytic activity/Vol] 15 U/L Normal 6 - 29 U/L [facility].; [facility]. AST [Catalytic activity/Vol] 12 U/L Normal 10 - 35 U/L [facility]; [facility] Bilirubin [Mass/Vol] 0.8 mg/dL Normal 0.2 - 1.2 mg/dL [facility]; [facility], [facility]. Calcium [Mass/Vol] 9.8 mg/dL Normal 8.6 - 10. 4 mg/dL [facility].; [facility], [facility] Chloride [Moles/Vol] 108 mmol/L Normal 98 - 110 mmol/L [facility]; [facility], [facility]. CO2 [Moles/Vol] 25 mmol/L Normal 20 - 32 mmol/L [facility]; [facility]. Cobalamin (Vitamin B12) [Mass/Vol] 1185 pg/mL Abnormal 200 - 1100 pg/mL [facility].; [facility], [facility]. Creatinine [Mass/Vol] 0.68 mg/dL Normal 0.50 - 1.03 mg/dL [facility]; [facility], [facility]. Folate [Mass/Vol] 12.5 ng/mL Normal [facility]; [facility] GFR/1.73 sq M.predicted among non-blacks MDRD (S/P/Bld) [Vol rate/Area] 101 mL/min/{1.73_m2} Normal [facility].; [facility], [facility] Glucose [Mass/Vol] 101 mg/dL Abnormal 65 - 99 mg/dL [facility], [facility] Potassium [Moles/Vol] 3.8 mmol/L Normal 3.5 - 5.3 mmol/L [facility].; [facility] Protein [Mass/Vol] 7.3 g/dL Normal 6.1 - 8.1 g/dL [facility]; [facility], [facility] Sodium [Moles/Vol] 142 mmol/L Normal 135 - 146 mmol/L [facility]; [facility], [facility] TSH Qn 0.51 m[IU]/L Normal 0.40 - 4.50 {mIU/L} [facility]; [facility], [facility] Urea nitrogen [Mass/Vol] 10 mg/dL Normal 7 - 25 mg/dL [facility]; [facility] Laboratory - Hematology and Cell countson 12-16-2023 Basophils (Bld) [#/Vol] 0.02 10*3/uL Normal 0 - 200 {cells/uL} [facility]; [facility], [facility] Basophils/100 WBC (Bld) 0.3 % Normal [facility]; [facility] Eosinophils (Bld) [#/Vol] 0.068 10*3/uL Normal 15 - 500 {cells/uL} [facility].; [facility] Eosinophils/100 WBC (Bld) 1.0 % Normal [facility]; [facility] Erythrocyte distribution width (RBC) [Ratio] 13.0 % Normal 11.0 - 15.0 % [facility].; [facility], [facility] Hematocrit (Bld) [Volume fraction] 44.1 % Normal 35.0 - 45.0 % [facility]; [facility], [facility] Hemoglobin (Bld) [Mass/Vol] 14.4 g/dL Normal 11.7 - 15.5 g/dL [facility].; [facility], [facility] Lymphocytes (Bld) [#/Vol] 1.319 10*3/uL Normal 850 - 3900 {cells/uL} [facility], [facility].; [facility] Lymphocytes/100 WBC (Bld) 19.4 % Normal [facility].; [employer]. MCH (RBC) [Entitic mass] 31.9 pg Normal 27.0 - 33.0 pg [employer], [employer]. MCHC (RBC) [Mass/Vol] 32.7 g/dL Normal 32.0 - 36.0 g/dL [facility] [employer] [facility].; [employer], [employer]. MCV (RBC) [Entitic vol] 97.8 fL Normal 80.0 - 100.0 fL [employer] [facility].; [employer], [employer]. Monocytes (Bld) [#/Vol] 0.483 10*3/uL Normal 200 - 950 {cells/uL} [employer] [facility].; [employer]. Monocytes/100 WBC (Bld) 7.1 % Normal [employer] [facility].; [employer], [employer]. Neutrophils (Bld) [#/Vol] 4.91 10*3/uL Normal 1500 - 7800 {cells/uL} [employer]. Neutrophils/100 WBC (Bld) 72.2 % Normal [employer] [facility].; [employer]. Platelet mean volume (Bld) [Entitic vol] 10.5 fL Normal 7.5 - 12.5 fL [employer] [facility].; [employer], [facility]. Platelets (Bld) [#/Vol] 266 10*3/uL Normal 140 - 400 [employer], [employer]. RBC (Bld) [#/Vol] 4.51 10*6/uL Normal 3.80 - 5.1 0 {Million/uL} [employer], [employer]. WBC (Bld) [#/Vol] 6.8 10*3/uL Normal 3.8 - 10.8 [employer]. No Panel Informationon 12-15 BUN/CREATININE RATIO SEE NOTE: Normal 6 - 22 [employer]. GLOBULIN 2.7 Normal 1.9 - 3.7 [employer], [employer]. VITAMIN D,25-OH,TOTAL,IA 25 ng/mL Abnormal 30 - 100 ng/mL [facility] [employer], [facility]. CBC + DIFFon 11-13-2023 Baso # 0.02 x10EE3/UL Normal 0.00 - 0.10 [facility] Comment on above: Performed By: #### 2 58459 #### [facility],[address] [place] [address] Basophils/100 WBC (Bld) 0.2 % Normal 0.0 - 2.0 [facility] Comment on above: Performed By: #### 2 19563 #### [facility],[address] [place] [address] CBC + DIFF Normal [facility] Comment on above: Result Comment: CBC- COMPLETE BLOOD COUNT Performed By: #### 2 90784 #### [facility],[address] [place] [address] EO # 0.10 x10EE3/UL Normal 0.00 - 0.50 [facility] Comment on above: Performed By: #### 2 86943 #### [facility],[address] [place] [address] Eosinophils/100 WBC (Bld) 1.0 % Normal 0.0 - 7.0 [facility] Comment on above: Performed By: #### 2 52563 #### [facility],[address] [place] [address] Erythrocyte distribution width (RBC) [Ratio] 12.6 % Normal 12.0 - 15.6 [facility] Comment on above: Performed By: #### 2 35604 #### [facility],[address] [place] [address] Hematocrit (Bld) [Volume fraction] 45.0 % Normal 34.0 - 46.0 [facility] Comment on above: Performed By: #### 2 38311 #### [facility],[address] [place] [address] Hemoglobin (Bld) [Mass/Vol] 15.8 g/dL Normal 12.0 - 16.0 [facility] Comment on above: Performed By: #### 2 78529 #### [facility],[address] [place] [address] Lymph # 1.75 x10EE3/UL Normal 0.80 - 2.80 [facility] Comment on above: Performed By: #### 2 02294 #### [place] [address] Lymphocytes/100 WBC (Bld) 16.7 % Low 20.0 - 45.0 [facility] Comment on above: Performed By: #### 2 81918 #### [facility],[address] [place] [address] MANUAL DIFF N/A Normal [facility] Comment on above: Performed By: #### 2 97857 #### [place] [address] MCH (RBC) [Entitic mass] 33 pg Normal 27 - 33 [facility] Comment on above: Performed By: #### 2 30360 #### [place] [address] MCHC 35 X10 3 Normal 32 - 36 [facility] Comment on above: Performed By: #### 2 01230 #### [place] [address] MCV (RBC) [Entitic vol] 94 fL Normal 80 - 99 [facility] Comment on above: Performed By: #### 2 36727 #### [place] [address] Rice # 0.75 x10EE3/UL Normal 0.20 - 1.00 [facility] Comment on above: Performed By: #### 2 59199 #### [place] [address] MONOS % 7.2 % Normal 0.0 - 10.0 [facility] Comment on above: Performed By: #### 2 57394 #### [facility],[address] [place] [address] Morphology Simon (Bld) [Interp] N/A Normal [facility] Comment on above: Performed By: #### 2 86100 #### [facility],[address] [place] [address] Neut # 7.87 x10EE3/UL High 1.50 - 7.10 [facility] Comment on above: Performed By: #### 2 00942 #### [place] [address] Neutrophils/100 WBC (Bld) 75.0 % Normal 46.0 - 76.0 [facility] Comment on above: Performed By: #### 2 62238 #### [place] [address] PLATELET 269 x10EE3/UL Normal 150 - 450 [facility] Comment on above: Performed By: #### 2 27763 #### [place] [address] Platelet mean volume (Bld) [Entitic vol] 7.6 fL Normal 6.6 - 10.5 [facility] Comment on above: Result Comment: AUTO MATED DIFFERENTIAL Performed By: #### 2 52907 #### [facility],[address] [place] [address] RBC 4.78 x 10EE6/UL Normal 4.10 - 5.30 [facility] Comment on above: Performed By: #### 2 75041 #### [place] [address] WBC 10.5 x 10EE3/UL Normal 4.5 - 10.8 [facility] Comment on above: Performed By: #### 2 62037 #### [facility],[address] [place] [address] CHEST 2 VIEWSon 11-13-2023 CHEST 2 VIEWS [place] [address] Patient: ELLIE WALKER Phone#: : [phone] Age: 58 Gender: F Pt. Type: ER Account: [id number] Location: 05 Ordering: KERWIN ALVARADO Exam Date: 11/13/2023/16:06 Family Phys: PRISCILA MCLEOD Charge Code: 474285 Physician: Clarke Order #: [id number] Dose#: PROCEDURE: X-RAY CHEST 2 VIEWS COMPARISON: [facility], XR, CHEST PA/LAT, 02/27/2017, 15:58. INDICATIONS: [...] Wilson MD on 11/13/2023 at 17:43 Normal [facility] CMP with eGFRon 11-13-2023 AGE 58 years Normal [facility] Comment on above: Performed By: #### 2 02945 #### [facility],[address] [place] [address] 47838 Albumin [Mass/Vol] 4.3 g/dL Normal 3.4 - 5.0 [facility] Comment on above: Performed By: #### 2 67304 #### [facility],[address] [place] [address] 44170 Albumin/Globulin [Mass ratio] 1.3 {ratio} Normal 0.9 - 1.6 [facility] Comment on above: Performed By: #### 2 43939 #### [facility],[address] [place] [address] 01104 ALK PHOS 117 U/L High 46 - 116 [facility] Comment on above: Performed By: #### 2 36637 #### [facility],[address] [place] [address] 32958 ALT [Catalytic activity/Vol] 29 U/L Normal 16 - 63 [facility] Comment on above: Performed By: #### 2 85725 #### [facility],[address] [place] [address] 73047 Anion gap [Moles/Vol] 15 mmol/L Normal 10 - 20 [facility] Comment on above: Performed By: #### 2 68227 #### [facility],[address] [place] [address] 87689 AST [Catalytic activity/Vol] 15 U/L Normal 13 - 39 [facility] Comment on above: Performed By: #### 2 61045 #### [facility],[address] [place] [address] 73072 B/C RATIO 16 ratio Normal 0 - 30 [facility] Comment on above: Performed By: #### 2 36437 #### [facility],[address] [place] [address] 98896 Bilirubin [Mass/Vol] 0.7 mg/dL Normal 0.2 - 1.0 [facility] Comment on above: Performed By: #### 2 01870 #### [facility],[address] [place] [address] 65927 Calcium [Mass/Vol] 10.2 mg/dL High 8.5 - 10.1 [facility] Comment on above: Performed By: #### 2 35642 #### [facility],[address] [place] [address] 90335 Chloride [Moles/Vol] 103 mmol/L Normal 98 - 107 [facility] Comment on above: Performed By: #### 2 71470 #### [facility],[address] [place] [address] 84309 CMP with eGFR Normal [facility] Comment on above: Result Comment: COMP REHENSIVE METABOLIC PANEL Performed By: #### 2 30138 #### [facility],[address] [place] [address] 42657 CO2 [Moles/Vol] 27.4 mmol/L Normal 21.0 - 32.0 [facility] Comment on above: Performed By: #### 2 85853 #### [facility],[address] [place] [address] Creatinine [Mass/Vol] 0.77 mg/dL Normal 0.55 - 1.02 [facility] Comment on above: Performed By: #### 2 22839 #### [facility],[address] [place], [place] [address] GFR/1.73 sq M.predicted among non-blacks MDRD (S/P/Bld) [Vol rate/Area] mL/min/{1.73_m2} Normal 60 - 999 [facility] Comment on above: Performed By: #### 2 85431 #### [facility],[address] [place] [address] Result Comment: ACCO RDING TO THE NATIONAL KIDNEY DISEASE EDUCATION PROGRAM(NKDE), A NORMAL eGFR IS A VALUE GREATER THAN OR EQUAL TO 60 ML/MIN/1.73 SQ METERS. CHRONIC KIDNEY DISEASE: <60mL/MIN/1.73 SQ METERS KIDNEY FAILURE: <15mL/MIN/1.73 SQ METERS THIS TEST SHOULD ONLY BE USED FOR PATIENTS 18 YEARS OF AGE AND OLDER. Globulin (S) [Mass/Vol] 3.4 g/dL Normal 1.5 - 3.8 [facility] Comment on above: Performed By: #### 2 81573 #### [facility],[address] [place] [address] 55517 Glucose [Mass/Vol] 113 mg/dL High 74 - 106 [facility] Comment on above: Performed By: #### 2 51098 #### [facility],[address] [place] [address] 72853 Potassium [Moles/Vol] 3.4 mmol/L Low 3.5 - 5.1 [facility] Comment on above: Performed By: #### 2 25732 #### [facility],[address] [place] [address] 07398 Protein [Mass/Vol] 7.7 g/dL Normal 6.4 - 8.2 [facility] Comment on above: Performed By: #### 2 80187 #### [facility],[address] [place] [address] 77455 Sodium [Moles/Vol] 142 mmol/L Normal 136 - 145 [facility] Comment on above: Performed By: #### 2 15600 #### [facility],[address] [place] [address] 34926 Urea nitrogen [Mass/Vol] 12 mg/dL Normal 7 - 18 [facility] Comment on above: Performed By: #### 2 84183 #### [facility],[address] [place] [address] 33203 CORONAVIRUS (SARS) ANTIGEN T ESTon 11-13-2023 EXTERNAL QC DONE? YES Normal [facility] Comment on above: Performed By: #### 2 35834 #### [facility],[address] [place] [address] 09543 INTERNAL CONTROL PASS Normal [facility] Comment on above: Performed By: #### 2 35331 #### [facility],[address] [place] [address] 19667 SARS ANTIGEN Negative Normal NORMAL: NEGATIVE [facility] Comment on above: Performed By: #### 2 22228 #### [facility],[address] [place] [address] 80834 SEND TO ? NO Normal [facility] Comment on above: Result Comment: SARS -CoV-2 THIS TEST IS BEING USED UNDER THE FDA EUA PROCEDURE. THIS ASSAY HAS BEEN VALIDATED AT [facility] FOR USE WITH NASAL AND NASOPHARYNGEAL [...] PUBLIC HEALTH AUTHORITIES. Performed By: #### 2 55789 #### [facility],[address] [place] [address] CT BRAIN W/O CONTRASTon 09-0 CT BRAIN W/O CONTRAST [place] [address] Patient: ELLIE WALKER Phone#: : 1965 Age: 58 Gender: F Pt. Type: ER Account: [id number] Location: [facility] Ordering: KERWIN ALVARADO Exam Date: 11/13/2023/16:01 Family Phys: PRISCILA MCLEOD Charge Code: [id number] Physician: Clarke Order #: [id number] Dose#: 57.50 mGy PROCEDURE: CT BRAIN WITHOUT [...] Wilson MD on 11/13/2023 at 16:16 Normal [facility] URINALYSISon 11-13-2023 Amorphous NONE Normal [facility] Comment on above: Performed By: #### 2 37264 #### [place] [address] Bacteria NONE Normal [facility] Comment on above: Performed By: #### 2 49040 #### [facility],[address] [place] [address] Bilirubin Ql (U) Negative Normal NORMAL: NEGATIVE [facility] Comment on above: Performed By: #### 2 95087 #### [facility],[address] [place] [address] Casts NONE Normal [facility] Comment on above: Performed By: #### 2 24476 #### [facility],[address],[place] [address] Clarity (U) clear Normal NORMAL: CLEAR [facility] Comment on above: Performed By: #### 2 25484 #### [facility],[address] [place] [address] 46429 Color (U) yellow Normal NORMAL: YELLOW [facility] Comment on above: Performed By: #### 2 53443 #### [facility],[address] [place] [address] 20151 Crystals LM Nom (Urine sed) NONE Normal [facility] Comment on above: Performed By: #### 2 93768 #### [facility],[address] [place], [place] [address] Epi Cells OCC Normal [facility] Comment on above: Performed By: #### 2 03625 #### [facility],[address] [place] [address] 52137 Glucose Ql (U) NORM Normal NORMAL: NORMAL [facility] Comment on above: Performed By: #### 2 85049 #### [facility],[address] [place] [address] 08639 Hemoglobin Ql (U) Negative Normal NORMAL: NEGATIVE [facility] Comment on above: Performed By: #### 2 74884 #### [facility],[address] [place] [address] 86208 Ketone Negative Normal NORMAL: NEGATIVE [facility] Comment on above: Performed By: #### 2 71729 #### [facility],[address] [place] [address] 08510 Leukocytes 25 Abnormal NORMAL: NEGATIVE [facility] Comment on above: Performed By: #### 2 45471 #### [facility],[address] [place] [address] 49509 Mucous NONE Normal [facility] Comment on above: Performed By: #### 2 99560 #### [facility],[address] [place] [address] 62824 Nitrite Ql (U) Negative Normal NORMAL: NEGATIVE [facility] Comment on above: Performed By: #### 2 46421 #### [facility],[address] [place] [address] pH (U) 6 [pH] Normal NORMAL: 5.0-8.0 [facility] Comment on above: Performed By: #### 2 52223 #### [facility],[address] [place] [address] Protein Ql (U) Negative Normal NORMAL: NEGATIVE [facility] Comment on above: Performed By: #### 2 53309 #### [facility],[address] [place] [address] Rbc NONE Normal 0-3/hpf [facility] Comment on above: Performed By: #### 2 11497 #### [facility],[address] [place] [address] Sp [place] 1.015 Normal NORMAL: 1.010-1.030 [facility] Comment on above: Performed By: #### 2 75768 #### [facility],[address] [place] [address] Specimen Type Clean catch Normal [facility] Comment on above: Performed By: #### 2 00784 #### [facility],[address] [place] [address] Urinalysis dipstick W Reflex Microscopic panel (U) SEE BELOW Normal [facility] Comment on above: Result Comment: MICR OSCOPIC Performed By: #### 2 68881 #### [facility],[address] [place] [address] Urobilinog NORM Normal NORMAL: NORMAL [facility] Comment on above: Performed By: #### 2 19290 #### [facility],[address] [place] [address] Wbc 1-5 Normal 0-5/hpf [facility] Comment on above: Performed By: #### 2 85000 #### [facility],[address] [place] [address] 91370 Yeast NONE Normal [facility] Comment on above: Performed By: #### 2 27271 #### [facility],[address] [place], [place] [id number] TSHon 10-04-2023 TSH Qn 1.02 m[IU]/L Normal 0.40-4.50 [facility] Comment on above: Performed By: #### 8 99 #### [facility] [address], [address] [place] [id number] Piston Maker: Armani Oakes MD Laboratory - Chemistry and C hemistry - challengeon 10-03-2023 TSH Qn 1.02 m[IU]/L Normal 0.40 - 4.50 {mIU/L} [facility], [facility].; [facility], [facility]. Laboratory - Chemistry and C hemistry - challengeon 07-22-2022 TSH Qn 0.76 m[IU]/L Normal 0.40 - 4.50 {mIU/L} [facility], [facility].; [facility], [facility]. Laboratory - Chemistry and C hemistry - challengeon 03-26-2021 TSH Qn 0.70 m[IU]/L Normal [facility], [facility].; [employer] [facility], [facility]. Laboratory - Chemistry and C hemistry - challengeon 06-04-2020 TSH Qn 0.78 m[IU]/L Normal [facility], [facility].; [facility], [facility]. Laboratory - Chemistry and C hemistry - challengeon 02-08-2019 Albumin [Mass/Vol] 4.5 g/dL Normal 3.6 - 5.1 g/dL [facility], [facility].; [facility], [facility]. Albumin/Globulin [Mass ratio] 1.8 {ratio} Normal 1.0 - 2.5 [facility], [facility].; [employer] [facility], [place]. ALP [Catalytic activity/Vol] 93 U/L Normal 33 - 130 U/L [facility], [facility].; [employer] ALT [Catalytic activity/Vol] 21 U/L Normal 6 - 29 U/L [facility], [facility].; [facility] [employer] AST [Catalytic activity/Vol] 19 U/L Normal 10 - 35 U/L [facility].; [facility], [facility] Bilirubin [Mass/Vol] 0.7 mg/dL Normal 0.2 - 1.2 mg/dL [facility].; [facility], [facility] Calcium [Mass/Vol] 9.4 mg/dL Normal 8.6 - 10. 4 mg/dL [facility]; [facility], [facility] Chloride [Moles/Vol] 105 mmol/L Normal 98 - 110 mmol/L [facility]; [facility], [facility] Cholesterol [Mass/Vol] 261 mg/dL Abnormal [facility]; [facility] Cholesterol in HDL [Mass/Vol] 87 mg/dL Normal [facility]; [facility], [facility] Cholesterol in LDL [Mass/Vol] 144 mg/dL Abnormal [facility]; [facility], [facility] CO2 [Moles/Vol] 32 mmol/L Normal 20 - 32 mmol/L [facility].; [facility], [facility] Creatinine [Mass/Vol] 0.63 mg/dL Normal 0.50 - 1.05 mg/dL [facility].; [facility], [facility]. GFR/1.73 sq M.predicted among blacks MDRD (S/P/Bld) [Vol rate/Area] 119 mL/min/{1.73_m2} Normal [facility].; [facility], [facility] Glucose [Mass/Vol] 84 mg/dL Normal 65 - 99 mg/dL [facility], [facility] Potassium [Moles/Vol] 4.0 mmol/L Normal 3.5 - 5.3 mmol/L [facility].; [facility], [facility]. Protein [Mass/Vol] 7.0 g/dL Normal 6.1 - 8.1 g/dL [facility]; [facility], [facility] Sodium [Moles/Vol] 141 mmol/L Normal 135 - 146 mmol/L [facility], [facility].; [facility], [facility] Triglyceride [Mass/Vol] 163 mg/dL Abnormal [facility]; [employer] [facility] TSH Qn 0.75 m[IU]/L Normal [facility]; [employer] [facility] Urea nitrogen [Mass/Vol] 12 mg/dL Normal 7 - 25 mg/dL [facility]; [employer] [facility] No Panel Informationon 02-08 BUN/CREATININE RATIO NOT APPLICABLE Normal 6 - 22 [facility]; [employer] [facility] CHOL/HDLC RATIO 3.0 Normal [facility]; [employer] [facility] eGFR NON-AFR. KITTITIAN 102 Normal [facility]; [employer] [facility] GLOBULIN 2.5 Normal 1.9 - 3.7 [facility]; [employer] [facility] NON HDL CHOLESTEROL 174 Abnormal [facility]; [employer] [facility] Laboratory - Chemistry and C hemistry - challengeon 03-17-2018 TSH Qn 0.52 m[IU]/L Normal 0.40 - 4.50 {mIU/L} [facility].; [employer] [facility]. Laboratory - Chemistry and C hemistry - challengeon 03-16-2017 TSH Qn 1.22 m[IU]/L Normal 0.40 - 4.50 {mIU/L} [facility].; [employer] [facility]. Laboratory - Chemistry and C hemistry - challengeon 03-09-2016 TSH Qn 0.58 m[IU]/L Normal 0.40 - 4.50 {mIU/L} [facility].; [employer] [facility]. Laboratory - Chemistry and C hemistry - challengeon 03-03-2015 TSH Qn 0.41 m[IU]/L Normal 0.40 - 4.50 {mIU/L} [employer] [facility].; [employer]. Laboratory - Chemistry and C hemistry - challengeon 02-04-2014 TSH Qn 1.05 m[IU]/L Normal 0.40 - 4.50 {mIU/L} [employer] [facility].; [facility] Laboratory - Chemistry and C hemistry - challengeon 01-20-2013 TSH Qn 0.89 m[IU]/L Normal 0.40 - 4.50 {mIU/L} [facility].; [facility] Laboratory - Chemistry and C hemistry - challengeon 10-20-2011 TSH Qn 0.74 m[IU]/L Normal 0.40 - 4.50 {mIU/L} [facility].; [facility] Laboratory - Chemistry and C hemistry - challengeon 11-05-2010 TSH Qn 0.47 m[IU]/L Normal 0.40 - 4.50 {mIU/L} [facility].; [facility] Laboratory - Chemistry and C hemistry - challengeon 12-11-2009 TSH Qn 0.82 m[IU]/L Normal 0.40 - 4.50 {mIU/L} [facility].; [facility], [facility] Vital Signs Date Time Vital Sign Value Performing Clinician Facility 12-16-2023 09:41-0400 Body height 173.99 cm Sukhwinder Rodriguez [facility].; [facility] 12-16-2023 09:41-0400 Body mass index (BMI) [Ratio] 34.91 kg/m2 Sukhwinder Michael [facility].; [facility] 12-16-2023 09:41-0400 Body surface area Derived from formula 2.19 m2 Sukhwinder Rodriguez [facility].; [facility] 12-16-2023 09:41-0400 Body weight 105.69 kg Sukhwinder Rodriguez [facility].; [facility] 12-16-2023 09:41-0400 Diastolic blood pressure 85 mm[Hg] Sukhwinder Michael [facility].; [facility], [facility]. Comment on above: Patient Position: Sitting; Cuff Location : Left Arm; Cuff Size: Standard 12-16-2023 09:41-0400 Heart rate 98 /min Sukhwinder Michael [facility], [facility].; [employer]. Comment on above: Pattern: Regular 12-16-2023 09:41-0400 Systolic blood pressure 171 mm[Hg] Sukhwinder Rodriguez [facility].; [employer]. Comment on above: Patient Position: Sitting; Cuff Location : Left Arm; Cuff Size: Standard 11-30-2023 15:48-0400 Body height 173.99 cm Chasity Tanisha RAMP AGENT Work Phone: [employer]. 11-30-2023 15:48-0400 Body mass index (BMI) [Ratio] 35.06 kg/m2 Chastiy Tanisha RAMP AGENT Work Phone: [employer]; [employer]. 11-30-2023 15:48-0400 Body surface area Derived from formula 2.2 m2 Chasity Tanisha RAMP AGENT Work Phone: [employer]; [employer]. 11-30-2023 15:48-0400 Body weight 106.14 kg Chasity Tanisha RAMP AGENT Work Phone: [employer]; [employer]. 11-30-2023 15:48-0400 Diastolic blood pressure 90 mm[Hg] Chasity Tanisha RAMP AGENT Work Phone: [employer]; [employer]. Comment on above: Patient Position: Sitting; Cuff Location : Left Arm; Cuff Size: Large 11-30-2023 15:48-0400 Heart rate 94 /min Chasity Tanisha RAMP AGENT Work Phone: [employer].; [employer]. Comment on above: Pattern: Regular 11-30-2023 15:48-0400 Systolic blood pressure 158 mm[Hg] Chasity Tanisha RAMP AGENT Work Phone: [employer].; [employer]. Comment on above: Patient Position: Sitting; Cuff Location : Left Arm; Cuff Size: Large 11-14-2023 13:15-0400 Body height 173.99 cm Beckie Knox RAMP AGENT [facility] 11-14-2023 13:15-0400 Body mass index (BMI) [Ratio] 35.66 kg/m2 Beckie Knox [facility] 11-14-2023 13:15-0400 Body surface area Derived from formula 2.21 m2 Beckie Knox [facility] 11-14-2023 13:15-0400 Body weight 107.96 kg Beckie Knox [facility], [facility]. 11-14-2023 13:15-0400 Diastolic blood pressure 90 mm[Hg] Beckie Knox [facility] [employer] [facility] Comment on above: Patient Position: Sitting; Cuff Location : Left Arm; Cuff Size: Large 11-14-2023 13:15-0400 Heart rate 76 /min Beckie Knox [facility] [employer] [facility] Comment on above: Pattern: Regular 11-14-2023 13:15-0400 Systolic blood pressure 145 mm[Hg] Beckie Knox [facility] [employer] [facility] Comment on above: Patient Position: Sitting; Cuff Location : Left Arm; Cuff Size: Large 11-11-2023 10:40-0400 Body height 173.99 cm Sukhwinder Rodriguez RAMP AGENT [facility] 11-11-2023 10:40-0400 Body mass index (BMI) [Ratio] 35.96 kg/m2 Sukhwinder Michael [facility] 11-11-2023 10:40-0400 Body surface area Derived from formula 2.22 m2 Sukhwinder Michael RAMP AGENT [facility] [employer] [facility] 11-11-2023 10:40-0400 Body weight 108.86 kg Sukhwinder Michael RAMP AGENT [facility] [employer] [facility]. 11-11-2023 10:40-0400 Diastolic blood pressure 87 mm[Hg] Sukhwinder Rodriguez [facility].; [employer] [facility], [facility]. Comment on above: Patient Position: Sitting; Cuff Location : Left Arm; Cuff Size: Standard 11-11-2023 10:40-0400 Heart rate 74 /min Sukhwinder Rodriguez [facility], [facility].; [facility], [facility]. Comment on above: Pattern: Regular 11-11-2023 10:40-0400 Inhaled oxygen concentration 21 % Sukhwindermal Rodriguez [facility].; [employer] [facility], [facility]. Comment on above: Room air 11-11-2023 10:40-0400 SaO2% (BldA) [Mass fraction] 97 % Sukhwinder Michael [facility].; [place] [employer] [facility], [facility]. 11-11-2023 10:40-0400 Systolic blood pressure 148 mm[Hg] Sukhwinder Rodriguez [facility].; [employer] [facility], [place]. Comment on above: Patient Position: Sitting; Cuff Location : Left Arm; Cuff Size: Standard 10-10-2023 10:28-0400 Body height 173.99 cm Priscila Mcleod MD Work Phone: [facility].; [place] [employer] [facility], [facility]. 10-10-2023 10:28-0400 Body mass index (BMI) [Ratio] 36.26 kg/m2 Priscila Mcleod MD Work Phone: [facility].; [facility]. 10-10-2023 10:28-0400 Body surface area Derived from formula 2.23 m2 Priscila Mcleod MD Work Phone: [facility].; [place] [employer] [facility]. 10-10-2023 10:28-0400 Body weight 109.77 kg Priscila Mcleod MD Work Phone: [facility].; [employer], [place]. 10-10-2023 10:28-0400 Diastolic blood pressure 82 mm[Hg] Priscila Mcleod MD Work Phone: [facility].; [employer]. Comment on above: Patient Position: Sitting; Cuff Location : Left Arm; Cuff Size: Standard 10-10-2023 10:28-0400 Heart rate 71 /min Priscila Mcleod MD Work Phone: [facility].; [employer]. Comment on above: Pattern: Regular 10-10-2023 10:28-0400 Systolic blood pressure 132 mm[Hg] Priscila Mcleod MD Work Phone: [facility] [employer].; [employer]. Comment on above: Patient Position: Sitting; Cuff Location : Left Arm; Cuff Size: Standard 09-09-2023 15:17-0400 Body height 173.99 cm Priscila Mcleod MD Work Phone: [facility] [employer].; [employer]. 09-09-2023 15:17-0400 Body mass index (BMI) [Ratio] 36.11 kg/m2 Priscila Mcleod MD Work Phone: [place] [employer] [facility].; [email or web address] [facility]. 09-09-2023 15:17-0400 Body surface area Derived from formula 2.22 m2 Priscila Mcleod MD Work Phone: [place] [employer].; [employer]. 09-09-2023 15:17-0400 Body temperature 981 [degF] Priscila Mcleod MD Work Phone: [place] [employer].; [employer]. 09-09-2023 15:17-0400 Body weight 109.32 kg Priscila Mcleod MD Work Phone: [place] [employer].; [employer]. 09-09-2023 15:17-0400 Diastolic blood pressure 84 mm[Hg] Priscila Mcleod MD Work Phone: [place] [employer].; [employer]. Comment on above: Patient Position: Sitting; Cuff Location : Left Arm; Cuff Size: Standard 09-09-2023 15:17-0400 Heart rate 101 /min Priscila Mcleod MD Work Phone: [facility], [place].; [employer] [facility]. Comment on above: Pattern: Regular 09-09-2023 15:17-0400 Systolic blood pressure 155 mm[Hg] Priscila Mcleod MD Work Phone: [facility], [place].; [employer]. Comment on above: Patient Position: Sitting; Cuff Location : Left Arm; Cuff Size: Standard 07-27-2022 14:48-0400 Body weight 112.49 kg Sukhwinder Rodriguez LPN [facility], [facility].; [employer] [facility], [place]. 07-27-2022 14:48-0400 Diastolic blood pressure 84 mm[Hg] Sukhwinder Rodriguez LPN [facility], [place].; [employer], [place]. Comment on above: Patient Position: Sitting; Cuff Location : Left Arm; Cuff Size: Standard 07-27-2022 14:48-0400 Heart rate 77 /min Sukhwinder Rodriguez LPN [facility], [place].; [employer]. Comment on above: Pattern: Regular 07-27-2022 14:48-0400 Systolic blood pressure 130 mm[Hg] Sukhwinder Rodriguez LPN [facility], [place].; [employer], [place]. Comment on above: Patient Position: Sitting; Cuff Location : Left Arm; Cuff Size: Standard 04-02-2021 10:52-0500 Body height 173.99 cm Suze Fontaine LPN [facility], [facility].; [facility], [facility]. 04-02-2021 10:52-0500 Body mass index (BMI) [Ratio] 36.41 kg/m2 Suze Fontaine LPN [facility], [facility].; [place] [employer] [facility], [facility]. 04-02-2021 10:52-0500 Body surface area Derived from formula 2.23 m2 Suze Fontaine LPN [facility], [facility].; [place] [employer] [facility], [facility]. 04-02-2021 10:52-0500 Body weight 110.22 kg Suze Fontaine LPN [facility], [facility].; [place] [employer] [facility], [place]. 04-02-2021 10:52-0500 Diastolic blood pressure 74 mm[Hg] Suze Fontaine LPN [facility] [employer] [facility], [place]. Comment on above: Patient Position: Sitting; Cuff Location : Left Arm; Cuff Size: Standard 04-02-2021 10:52-0500 Heart rate 73 /min Suze Fontaine LPN [facility] [employer] [facility], [place]. Comment on above: Pattern: Regular 04-02-2021 10:52-0500 Systolic blood pressure 117 mm[Hg] Suze [facility]aine [facility].; [employer], [place]. Comment on above: Patient Position: Sitting; Cuff Location : Left Arm; Cuff Size: Standard 06-11-2020 07:42-0400 Body height 173.99 cm ShaniquaWendy Knox LPN [facility], [facility] [place] [employer] [facility], [place]. 06-11-2020 07:42-0400 Body mass index (BMI) [Ratio] 34.91 kg/m2 ShaniquaWendy Somersey ZEB [facility], [facility].; [place] [employer] [facility], [place]. 06-11-2020 07:42-0400 Body surface area Derived from formula 2.19 m2 ShaniquaWendy Knox LPN [facility], [facility].; [employer] [facility], Inc[facility] 06-11-2020 07:42-0400 Body weight 105.69 kg Beckie Nguyen [place] [employer] [facility], [facility].; [employer] [facility], [employer] 06-11-2020 07:42-0400 Diastolic blood pressure 83 mm[Hg] ShaniquaWendy Somersey ZEB [facility], [facility].; [employer] [facility], [place]. Comment on above: Patient Position: Sitting; Cuff Location : Left Arm; Cuff Size: Large 06-11-2020 07:42-0400 Heart rate 80 /min Beckie Nguyen [place] [employer] [facility], [facility].; [employer], [place]. Comment on above: Pattern: Regular 06-11-2020 07:42-0400 Systolic blood pressure 122 mm[Hg] Beckie Nguyen [place] [employer] [facility], [facility] [employer], [place]. Comment on above: Patient Position: Sitting; Cuff Location : Left Arm; Cuff Size: Large 02-14-2019 09:47-0500 Body height 173.99 cm Beckie Knox LPN [employer] [facility], [facility].; [employer] 02-14-2019 09:47-0500 Body mass index (BMI) [Ratio] 33.86 kg/m2 Beckie Knox LPN [employer] [facility], Inc.; [employer] 02-14-2019 09:47-0500 Body surface area Derived from formula 2.16 m2 Beckie Knox RAMP AGENT [employer] [facility], [facility].; [employer] 02-14-2019 09:47-0500 Body weight 102.51 kg Beckie Knox LPN [employer], [employer] 02-14-2019 09:47-0500 Diastolic blood pressure 79 mm[Hg] Beckie Knox LPN [employer] [facility], Inc.; [employer] Comment on above: Patient Position: Sitting; Cuff Location : Left Arm; Cuff Size: Large 02-14-2019 09:47-0500 Heart rate 77 /min Beckie Knox LPN [employer] [facility], Inc.; [employer] Comment on above: Pattern: Regular 02-14-2019 09:47-0500 Systolic blood pressure 124 mm[Hg] Beckie Knox LPN [employer] [facility], Inc.; [employer] Comment on above: Patient Position: Sitting; Cuff Location : Left Arm; Cuff Size: Large 03-22-2018 07:26-0500 Body height 173.99 cm Beckie Knox LPN [employer] [facility], Inc.; [employer] 03-22-2018 07:26-0500 Body mass index (BMI) [Ratio] 32.36 kg/m2 Beckie Knox RAMP AGENT [employer] [facility], Inc.; [employer] 03-22-2018 07:26-0500 Body surface area Derived from formula 2.12 m2 Beckie Knox RAMP AGENT [employer] [facility], Inc.; [employer] 03-22-2018 07:26-0500 Body weight 97.98 kg Beckie Knox LPN [employer], [employer].; [employer] 03-22-2018 07:26-0500 Diastolic blood pressure 77 mm[Hg] Beckie Knox LPN [employer], [employer].; [employer]. Comment on above: Patient Position: Sitting; Cuff Location : Left Arm; Cuff Size: Large 03-22-2018 07:26-0500 Heart rate 69 /min Beckie Knox LPN [employer], [employer], [employer] Comment on above: Pattern: Regular 03-22-2018 07:26-0500 Systolic blood pressure 124 mm[Hg] Beckie Knox LPN [employer], [employer] Comment on above: Patient Position: Sitting; Cuff Location : Left Arm; Cuff Size: Large 09-05-2017 14:20-0400 Body height 173.99 cm Alma Hayward RN [employer] [facility], Inc.; [employer], [employer] 09-05-2017 14:20-0400 Body mass index (BMI) [Ratio] 31.47 kg/m2 Alma Hayward RN [employer] [facility], Inc.; [employer] 09-05-2017 14:20-0400 Body surface area Derived from formula 2.1 m2 Alma Hayward RN [employer], [place].; [employer] 09-05-2017 14:20-0400 Body weight 95.26 kg Alma Hayward RN [employer], [employer].; [employer], [employer] 09-05-2017 14:20-0400 Diastolic blood pressure 82 mm[Hg] Alma Hayward RN [employer], [place].; [employer]. Comment on above: Patient Position: Sitting; Cuff Location : Left Arm; Cuff Size: Standard 09-05-2017 14:20-0400 Heart rate 86 /min Alma Hayward RN [employer], [place].; [employer]. Comment on above: Pattern: Regular 09-05-2017 14:20-0400 Systolic blood pressure 135 mm[Hg] Alma Hayward RN [employer]. Comment on above: Patient Position: Sitting; Cuff Location : Left Arm; Cuff Size: Standard 03-16-2017 07:41-0500 Body height 173.99 cm Beckie Knox RAMP AGENT [facility], [facility].; [employer] 03-16-2017 07:41-0500 Body mass index (BMI) [Ratio] 32.21 kg/m2 Beckie Knox RAMP AGENT [facility], [facility].; [employer] 03-16-2017 07:41-0500 Body surface area Derived from formula 2.12 m2 Beckie Knox RAMP AGENT [employer] [facility], [facility].; [employer] 03-16-2017 07:41-0500 Body weight 97.52 kg Beckie Knox RAMP AGENT [employer] [facility], [facility].; [employer], [place]. 03-16-2017 07:41-0500 Diastolic blood pressure 84 mm[Hg] Beckie Knox RAMP AGENT [facility], [facility].; [employer], [employer] Comment on above: Patient Position: Sitting; Cuff Location : Left Arm; Cuff Size: Large 03-16-2017 07:41-0500 Heart rate 98 /min Beckie Knox RAMP AGENT [employer] [facility], [facility].; [employer], [place]. Comment on above: Pattern: Regular 03-16-2017 07:41-0500 Systolic blood pressure 134 mm[Hg] Beckie Knox RAMP AGENT [employer] [facility], [facility].; [employer] Comment on above: Patient Position: Sitting; Cuff Location : Left Arm; Cuff Size: Large 03-12-2016 08:00-0500 Body weight 97.52 kg Prachi Palmer LPN [employer] [facility], Inc.; [employer] 03-12-2016 08:00-0500 Diastolic blood pressure 68 mm[Hg] Prachi Palmer RAMP AGENT [employer] [facility], Inc.; [employer], [place]. Comment on above: Patient Position: Sitting; Cuff Location : Left Arm; Cuff Size: Standard 03-12-2016 08:00-0500 Heart rate 84 /min Prachi Palmer LPN [employer] [facility], Inc.; [employer], [place]. Comment on above: Pattern: Regular 03-12-2016 08:00-0500 Systolic blood pressure 116 mm[Hg] Prachi Palmer LPN [facility], [facility].; [employer], [place]. Comment on above: Patient Position: Sitting; Cuff Location : Left Arm; Cuff Size: Standard 06-16-2015 08:44-0400 Body height 173.99 cm Alma Murray LPN [facility], [facility].; [employer], [place]. 06-16-2015 08:44-0400 Body mass index (BMI) [Ratio] 31.62 kg/m2 Alma Murray [facility] [employer] [facility], [facility].; [employer], [place]. 06-16-2015 08:44-0400 Body surface area Derived from formula 2.1 m2 Alma Murray RAMP AGENT [employer] [facility], Inc.; [employer], [place]. 06-16-2015 08:44-0400 Body temperature 97.8 [degF] Alma Murray [facility] [employer] [facility], [employer].; [employer], [place]. Comment on above: Method: Tympanic 06-16-2015 08:44-0400 Body weight 95.71 kg Almadestiny Murray LPN [place] [employer] [facility], Inc.; [employer], [place]. 06-16-2015 08:44-0400 Diastolic blood pressure 88 mm[Hg] Alma Murray RAMP AGENT [place] [employer] [facility], [facility].; [employer], [place]. Comment on above: Patient Position: Sitting; Cuff Location : Right Arm; Cuff Size: Standard 06-16-2015 08:44-0400 Heart rate 77 /min Alma Murray LPN [place] [employer] [facility], Inc.; [employer], [place]. Comment on above: Pattern: Regular 06-16-2015 08:44-0400 Systolic blood pressure 127 mm[Hg] Almadestiny Murray [facility], Inc.; [employer], [place]. Comment on above: Patient Position: Sitting; Cuff Location : Right Arm; Cuff Size: Standard 03-05-2015 09:28-0500 Body height 173.99 cm Priscila Mcleod MD Work Phone: [employer]. 03-05-2015 09:28-0500 Body mass index (BMI) [Ratio] 31.17 kg/m2 Priscila Mcleod MD Work Phone: [employer].; [employer]. 03-05-2015 09:28-0500 Body surface area Derived from formula 2.09 m2 Priscila Mcleod MD Work Phone: [employer].; [employer] 03-05-2015 09:28-0500 Body weight 94.35 kg Priscila Mcleod MD Work Phone: [employer].; [employer]. 03-05-2015 09:28-0500 Diastolic blood pressure 88 mm[Hg] Priscila Mcleod MD Work Phone: [employer].; [employer]. Comment on above: Patient Position: Sitting; Cuff Location : Left Arm; Cuff Size: Standard 03-05-2015 09:28-0500 Heart rate 76 /min Priscila Mcleod MD Work Phone: [employer].; [employer]. Comment on above: Pattern: Regular 03-05-2015 09:28-0500 Systolic blood pressure 130 mm[Hg] Priscila Mcleod MD Work Phone: [employer].; [employer]. Comment on above: Patient Position: Sitting; Cuff Location : Left Arm; Cuff Size: Standard 02-26-2014 09:03-0500 Body height 173.99 cm Beckie Knox RAMP AGENT [employer].; [employer]. 02-26-2014 09:03-0500 Body mass index (BMI) [Ratio] 30.87 kg/m2 Beckie Knox RAMP AGENT [employer].; [employer]. 02-26-2014 09:03-0500 Body surface area Derived from formula 2.08 m2 Beckie Knox RAMP AGENT [employer].; [employer]. 02-26-2014 09:03-0500 Body weight 93.44 kg Beckie Knox RAMP AGENT [employer].; [employer]. 02-26-2014 09:03-0500 Diastolic blood pressure 83 mm[Hg] Beckie Knox [facility], Inc.; [employer] Comment on above: Patient Position: Sitting; Cuff Location : Left Arm; Cuff Size: Large 02-26-2014 09:03-0500 Heart rate 85 /min Beckie Knox [facility], [facility].; [employer] Comment on above: Pattern: Regular 02-26-2014 09:03-0500 Systolic blood pressure 123 mm[Hg] Beckie Knox [facility], [employer].; [employer] Comment on above: Patient Position: Sitting; Cuff Location : Left Arm; Cuff Size: Large 02-23-2013 07:20-0500 Body weight 91.63 kg Prachi E Spencer [facility], Inc.; [employer] 02-23-2013 07:20-0500 Diastolic blood pressure 77 mm[Hg] Prachi Madeline Spencer [facility], Inc.; [employer] Comment on above: Patient Position: Sitting; Cuff Location : Left Arm; Cuff Size: Standard 02-23-2013 07:20-0500 Heart rate 84 /min Prachi Madeline [facility].; [employer], [place]. Comment on above: Pattern: Regular 02-23-2013 07:20-0500 Systolic blood pressure 124 mm[Hg] Prachi E Spencer [facility], [employer].; [employer], [place]. Comment on above: Patient Position: Sitting; Cuff Location : Left Arm; Cuff Size: Standard 10-27-2011 10:34-0400 Body height 173.99 cm Beckie Knox [facility], [facility].; [employer], [place]. 10-27-2011 10:34-0400 Body mass index (BMI) [Ratio] 31.62 kg/m2 [facility] Abilio [facility], Inc.; [employer] 10-27-2011 10:34-0400 Body surface area Derived from formula 2.1 m2 [facility], [facility].; [employer], [place]. 10-27-2011 10:34-0400 Body weight 95.71 kg Beckie Knox LPN [facility], [facility].; [employer] [facility], [place]. 10-27-2011 10:34-0400 Diastolic blood pressure 75 mm[Hg] Beckie Knox LPN [facility], [facility] [employer] Comment on above: Patient Position: Sitting; Cuff Location : Left Arm; Cuff Size: Large 10-27-2011 10:34-0400 Heart rate 77 /min Beckie Knox LPN [facility], [facility] [employer] Comment on above: Pattern: Regular 10-27-2011 10:34-0400 Systolic blood pressure 115 mm[Hg] Beckie Knox LPN [facility], [facility] Comment on above: Patient Position: Sitting; Cuff Location : Left Arm; Cuff Size: Large 11-11-2010 09:48-0400 Body height 173.99 cm Beckie Knox [facility], [facility].; [employer] 11-11-2010 09:48-0400 Body mass index (BMI) [Ratio] 31.02 kg/m2 Beckie Knox [facility], [facility].; [employer] 11-11-2010 09:48-0400 Body surface area Derived from formula 2.09 m2 Beckie Knox RAMP AGENT [facility], [facility].; [employer] [facility], Inc[facility] 11-11-2010 09:48-0400 Body weight 93.9 kg Beckie Knox [facility], [facility].; [employer], [place]. 11-11-2010 09:48-0400 Diastolic blood pressure 77 mm[Hg] Beckie Knox [facility], [facility].; [employer], [place]. Comment on above: Patient Position: Sitting; Cuff Location : Left Arm; Cuff Size: Large 11-11-2010 09:48-0400 Heart rate 79 /min Beckie Knox LPN [facility], [facility] [employer], [place]. Comment on above: Pattern: Regular 11-11-2010 09:48-0400 Systolic blood pressure 119 mm[Hg] Beckie Knox LPN [facility], [facility].; [employer] [facility], [place]. Comment on above: Patient Position: Sitting; Cuff Location : Left Arm; Cuff Size: Large 12-17-2009 10:49-0400 Body height 173.99 cm Beckie Knox RAMP AGENT [facility], [facility].; [facility], [place]. 12-17-2009 10:49-0400 Body mass index (BMI) [Ratio] 31.32 kg/m2 Beckie Knox [facility], [facility].; [place] [employer] [facility], [place]. 12-17-2009 10:49-0400 Body surface area Derived from formula 2.09 m2 Shaniqua Abilio [facility], [facility].; [facility], [facility]. 12-17-2009 10:49-0400 Body weight 94.8 kg Beckie Knox [facility], [facility].; [place] [employer] [facility], [place]. 12-17-2009 10:49-0400 Diastolic blood pressure 80 mm[Hg] Beckie Knox [facility].; [employer] [facility]. Comment on above: Patient Position: Sitting; Cuff Location : Left Arm; Cuff Size: Large 12-17-2009 10:49-0400 Heart rate 65 /min Beckie Knox [facility], [facility].; [employer] [facility], [place]. Comment on above: Pattern: Regular 12-17-2009 10:49-0400 Systolic blood pressure 120 mm[Hg] Beckie Knox [facility], [facility].; [employer] [facility]. Comment on above: Patient Position: Sitting; Cuff Location : Left Arm; Cuff Size: Large Encounters Encounter Date Encounter Type Care Provider Facility Start: 12-20-2023 End: 12-20-2023 Orders Priscila Mcleod MD Work Phone[facility]. Start: 12-16-2023 End: 12-16-2023 Medication Priscila Mcleod MD Work Phone: [facility] Start: 12-16-2023 End: 12-16-2023 Office outpatient visit 15 minutes Priscila Mcleod MD Work Phone: [employer] Start: 11-30-2023 End: 11-30-2023 Office outpatient visit 15 minutes Priscila Mcleod MD Work Phone: [employer]. Start: 11-14-2023 End: 11-14-2023 Office outpatient visit 15 minutes Priscila Mcleod MD Work Phone: [employer]. Start: 11-14-2023 End: 11-14-2023 Telephone follow-up Priscila Mcleod MD Work Phone: [employer]. Start: 11-14-2023 Follow-up encounter Priscila salas MD Work Phone: [employer]. Start: 11-13-2023 End: 11-13-2023 Emergency department patient visit KERWIN Correa [facility] Start: 11-11-2023 End: 11-11-2023 Office outpatient visit 15 minutes Priscila Mcleod MD Work Phone: [employer]. Start: 10-10-2023 End: 10-10-2023 Office outpatient visit 15 minutes Priscila Mcleod MD Work Phone: [employer]. Start: 10-10-2023 Follow-up encounter Priscila salas MD Work Phone: [employer]. Start: 10-03-2023 End: 10-03-2023 Orders Priscila Mcleod MD Work Phone: [employer]. Start: 09-09-2023 End: 09-09-2023 Office outpatient visit 15 minutes Priscila Mcleod MD Work Phone: [employer]. Start: 07-27-2022 End: 07-27-2022 Office outpatient visit 15 minutes Priscila Mcleod MD Work Phone: [employer]. Start: 07-22-2022 End: 07-22-2022 Orders Priscila Mcleod MD Work Phone: [employer]. Start: 04-02-2021 End: 04-02-2021 Office outpatient visit 15 minutes Priscila Mcleod MD Work Phone: [employer]. Start: 03-26-2021 End: 03-26-2021 Orders Priscila Mcleod MD Work Phone: [employer]. Start: 06-11-2020 End: 06-11-2020 Office outpatient visit 15 minutes Priscila Mcleod MD Work Phone: [employer]. Start: 06-04-2020 End: 06-10-2020 Orders Priscila Mcleod MD Work Phone: [employer]. Start: 02-14-2019 End: 02-13-2019 Historical Summary Priscila Mcleod MD Work Phone: [employer]. Start: 02-14-2019 End: 02-14-2019 Office outpatient visit 15 minutes Priscila Mcleod MD Work Phone: [employer]. Start: 09-27-2018 End: 09-27-2018 Telephone follow-up Priscila Mcleod MD Work Phone: [employer]. Start: 05-15-2018 End: 05-16-2018 Orders Priscila Mcleod MD Work Phone: [employer]. Start: 03-22-2018 End: 03-22-2018 Office outpatient visit 15 minutes Priscila Mcleod MD Work Phone: [employer]. Start: 03-17-2018 End: 03-20-2018 Orders Priscila Mcleod MD Work Phone: [employer]. Start: 09-05-2017 End: 09-05-2017 Office outpatient visit 15 minutes Priscila Mcleod MD Work Phone: [employer]. Start: 08-09-2017 End: 08-09-2017 Telephone follow-up Priscila Mcleod MD Work Phone: [employer]. Start: 08-06-2017 End: 08-06-2017 Historical Summary Priscila Mcleod MD Work Phone: [employer]. Start: 03-16-2017 End: 03-16-2017 Office outpatient visit 15 minutes Priscila Mcleod MD Work Phone: [employer]. Start: 03-08-2017 End: 03-08-2017 Telephone follow-up Priscila Mcleod MD Work Phone: [employer]. Start: 03-12-2016 End: 03-12-2016 Office outpatient visit 15 minutes Priscila Mcleod MD Work Phone: [employer] [facility]. Start: 03-09-2016 End: 03-09-2016 Orders Priscila Mcleod MD Work Phone: [facility]. Start: 06-16-2015 End: 06-16-2015 Office outpatient visit 15 minutes Priscila Mcleod MD Work Phone: [facility]. Start: 03-05-2015 End: 03-05-2015 Office outpatient visit 15 minutes Priscila Mcleod MD Work Phone: [facility]. Start: 03-03-2015 End: 03-03-2015 Orders Priscila Mcleod MD Work Phone: [facility]. Start: 02-26-2014 End: 02-26-2014 Office outpatient visit 15 minutes Priscila Mcleod MD Work Phone: [facility]. Start: 02-25-2014 End: 02-25-2014 Historical Summary Priscila Mcleod MD Work Phone: [facility]. Start: 02-04-2014 End: 02-05-2014 Orders Priscila Mcleod MD Work Phone: [facility]. Start: 02-23-2013 End: 02-23-2013 Patient encounter procedure Priscila Mcleod MD Work Phone: [facility]. Start: 01-20-2013 End: 01-22-2013 Orders Priscila Mcleod MD Work Phone: [facility]. Start: 12-07-2012 End: 12-07-2012 Medication Priscila Mcleod MD Work Phone: [facility]. Start: 10-27-2011 End: 10-27-2011 Patient encounter procedure Priscila Mcleod MD Work Phone: [employer] Start: 10-20-2011 End: 10-20-2011 Orders Priscila Mcleod MD Work Phone: [employer] Start: 11-11-2010 End: 11-11-2010 Patient encounter procedure Priscila Mcleod MD Work Phone: [employer] Start: 11-05-2010 End: 11-06-2010 Orders Priscila Mcleod MD Work Phone: [employer] Start: 12-17-2009 End: 12-17-2009 Patient encounter procedure Priscila Mcleod MD Work Phone: [employer] Start: 12-02-2009 End: 12-02-2009 Medication Priscila Mcleod MD Work Phone: [employer] Procedures Date Procedure Procedure Detail Performing Clinician Start: 11-13-2023 Urinalysis KERWIN SIMMONS Comment on above: Result Comment: URIN ALYSIS Performed By: #### 2 [id number] #### [facility],[address] [place] [address] Start: 11-11-2023 End: 11-11-2023 Triamcinolone acet inj [...] Fontaine LPN Appendectomy Beckie Nguyen akilah marichuy RAMP AGENT Esophageal hiatus he rnia repair Beckie Nguyen Abilio RAMP AGENT Ligation of fallopian tube M rosendo Wendy Knox RAMP AGENT Subtotal thyroidectomy Beckie Knox RAMP AGENT Tonsillectomy Beckie Adams rios RAMP AGENT Plan of Treatment Date Care Activity Detail Author Start: 12-16-2023 Assay of folic acid serum FOLATE (26970) Start: 16-Dec-2023 09:47-04:00 Request [employer]; [employer] Start: 12-16-2023 25 hydroxy includes fractions if performed Vitamin D, 25-Hydroxy, LC/MS/MS (37438) Start: 16-Dec-2023 09:46-04:00 [employer]; [employer] Start: 12-16-2023 Cyanocobalamin vitamin b-12 VITAMIN B-12 SERUM (13266) Start: 16-Dec-2023 09:46-04:00 Request [employer]; [employer] Start: 12-16-2023 Assay of thyroid stimulating hormone tsh TSH (THYROID STIMULATING HORMONE) ([id number]) Start: 16-Dec-2023 09:46-04:00 Request [employer]; [employer] Start: 12-16-2023 Comprehensive metabolic panel CMP w/ GFR* (14902) Start: 16-Dec-2023 09:46-04:00 Request [employer]; [facility] Start: 12-16-2023 Blood count complete auto&auto difrntl wbc CBC, PLATELETS & AUT DIFF (F) (89478) Start: 16-Dec-2023 09:46-04:00 Request [employer]; [facility] Start: 10-10-2023 Patient encounter procedure Medical; RTN OFFICE VISIT - rtn [employer] Start: 10-Oct-2023 10:30-04:00 MD Priscila Mcleod Appointment Request [employer] Start: 10-03-2023 Assay of thyroid stimulating hormone tsh TSH (THYROID STIMULATING HORMONE) (08567) Start: 03-Oct-2023 Request [employer]; [facility]. dexAMETHasone so d phos (bulk) 100 % powder Ordered: 6-Sep-202MD Priscila Florez [employer]; [employer] Immunizations Immunization Date Immunization Notes Care Provider Griffin dunlap 05-31-2020 COVID-Moderna (100 MCG/0.5 ML) Priscila Mcleod MD Work Phone: [facility] [employer]; [employer] Payers Date Payer Category Payer Unknown [id number] Unknown [employer] Unknown [id number] Social History Date Type Detail Facility Tobacco Use: Tobacco Use: ; Former smoker . [employer]; [employer] Female [facility] [employer]; [employer] Work Phone: Ex-smoker [facility] [employer]; [employer] Work Phone: Summary Purpose Family History No Family History Records FoundNo Family History Records Found Advance Directives No Advanced Directives Records FoundNo Advanced Directives Records Found Additional Source Comments INFORMATION SOURCE (unrecogn ized section and content) DATE CREATED AUTHOR 11/14/2023 [facility] DATE CREATED AUTHOR AUTHOR'S ORGANIZ ATION 12/19/2023 [...] BE BASED ON THE PRIMARY CLINICAL RECORDS. [employer] provides no warranty or guarantee of the accuracy or completeness of information in this document.
[2024-01-03] MEDS: Gabapentin 100 MG Capsule 200 MG PO (20:44)
[2024-01-04 04:00] VITALS: BP 129/69; PULSE 67; RESP 18; TEMP 35.7; O2SAT 100
[2024-01-04] MEDS: Levothyroxine 125 MCG Tablet 62.5 MCG PO (06:11)
[2024-01-04] MEDS: Gabapentin 100 MG Capsule PO ×2 (06:11→13:47)
[2024-01-04 07:00] VITALS: PULSE 65
[2024-01-04] MEDS: FLU VACC 2024-25(6MOS UP)/PF 45 MCG/0.5 ML SYRINGE IM (09:23)
[2024-01-04 09:37] VITALS: BP 116/71; PULSE 72; RESP 16; TEMP 36.4; O2SAT 99
[2024-01-04 11:00] VITALS: PULSE 85
[2024-01-04 11:20] VITALS: BP 116/71; PULSE 72
[2024-01-04] MEDS: Metoprolol Tartrate 25 MG Tablet PO (11:20)
--- NOTE | 2024-01-04 12:10 | PCM.DC.SUM ---
Providers Date of Admission: 01/03/24 Date of Discharge: 01/04/24 Primary Care Physician: Dr. Wenceslao Mcleod MD Reason For Visit: SUPRAVENTRICULAR TACHYCARDIA Diagnosis Discharge Diagnosis (1) Supraventricular tachycardia: Status: Acute Code(s): I47.10 - Supraventricular tachycardia, unspecified (2) Elevated troponin: Status: Acute Code(s): R79.89 - Other specified abnormal findings of blood chemistry Medications at Discharge Home Medications levothyroxine 125 mcg tablet 62.5 mcg PO DAILY THYROID 09/23/18 gabapentin 100 mg capsule 100 mg PO BID NERVE PAIN 01/03/24 gabapentin 100 mg capsule 200 mg PO QPM NERVE PAIN 01/03/24 pregabalin 50 mg capsule 50 mg PO BID PAIN 01/03/24 metoprolol tartrate 25 mg tablet 25 mg PO BID #60 tabs 01/04/24 Hospital Course Operations None Procedures 2-D Echocardiogram Summary of Care Provided Minutes Spent on Discharge: 55 Hospital Course: Patient is a 55 y/o female with a PMH as outlined who was admitted via the ED on 01/04/2024 with a complaint of palpitations which started on the day of admission. She has had similar bouts in the past namely February 2023 in December 2022 and also said she had some in July 2023. She says she had previously been placed on p.o. metoprolol but had stopped taking it by herself. On admission initial troponin was negative but has trended up slightly to a peak of 80. She denied any dizziness or lightheadedness, nausea vomiting or any other symptoms. Heart rate was up in the 200s on admission and she received 2 doses of adenosine. She subsequently converted to normal sinus rhythm. Chest x-ray showed no acute cardiopulmonary pathology. She was admitted and managed for SVT. TSH was within normal limits. EKG showed no acute ST changes. 2D echo was ordered which showed normal left ventricular size with normal ventricular systolic function and EF of 65% with stage I diastolic dysfunction and structurally normal valves. I did discuss with cardiology and Dr. Draper recommended putting her on p.o. metoprolol 25 mg twice daily and for patient to follow-up with cardiology in the clinic. Patient seen an examined prior to discharge. She had no active complaints and felt well. Review of systems is otherwise negative. Labs and vitals reviewed. Home meds reviewed and reconciled. Potassium was low and was also replaced. Physical Exam Const alert, oriented x3 and no apparent distress General Appearance: cooperative, comfortable and well kempt Orientation / Consciousness: awake Exam Limitations: no limitations HEENT normocephalic, head/scalp atraumatic, hearing grossly normal bilaterally and moist oral mucous membranes Mouth: oral and palatal mucosa normal and dry mucous membranes Eyes PERRL, EOMs intact bilaterally and conjunctivae normal Neck no lymphadenopathy and supple Resp normal respiratory effort and no retractions GI normal to inspection, nondistended, normoactive bowel sounds, soft to palpation and non-tender Extremity normal to inspection, full ROM and no clubbing, cyanosis or edema Skin no rashes or lesions noted and no wounds Neuro oriented x3, CN's II-XII intact bilaterally, moves all extremities and no focal motor deficits Sensorium / Orientation: awake and alert Motor Exam: strength 5/5 throughout Psych affect normal Weight / BMI Weight Weight: 233 lb 3.985 oz Body Mass Index (BMI) 34.4 ABG / Lab / Microbiology Data 01/03/24 11:00 01/03/24 11:00 Laboratory: Laboratory Results - last 24 hr 01/03/24 13:15: Troponin I High Sens 78 H 01/03/24 17:00: Troponin I High Sens 80 H Radiography Diagnostic Testing: Radiology Impression Chest CTA 01/03/24 12:01 IMPRESSION: No demonstrated pulmonary embolism or arterial dissection. Bilateral emphysema. Pulmonary emphysema on CT is an independent risk factor for lung cancer. Recommend consideration for low dose CT (LDCT) lung cancer screening in the future. 5 and 4 mm pulmonary nodules, recommend follow-up chest CT in 12 months. Electronically Signed: Hali Padron MD at 13:07 EDT , D/C Instructions Discharge Diet: Low fat / Low cholesterol Discharge Activity: Return to Normal Activity Weight Bearing Status: Weight bearing as tolerated Call your doctor if you observe: Fever of 101 or Higher, Shortness of breath, Dizziness, Chest pain and Increased palpitations (irregular heartbeat) Meaningful Use Info Meaningful Use Meaningful Use Diagnoses (Choose all that apply): None applicable Ischemic Stroke Statin Dosing Therapy Reference: STATIN DOSE THERAPY REFERENCE: * Patients > 75 years receive moderate or high dose statin therapy. * Patients 75 years or YOUNGER should receive HIGH intensity statin dose unless contraindicated. You will be required to document reason for non-treatment if statin daily dose does not meet guidelines. HIGH DOSE STATIN THERAPY DAILY Atorvastatin > than or = to 40 mg Rosuvastatin > than or = to 20 mg Amlodipine + Atorvastatin > than or = to 2.5/40 mg Ezetimibe + Simvastatin 10/80 mg Simvastatin 80mg Discharge Plan Admission Admit Date/Time: 01/03/24 15:24 Primary Reason for Your Visit: SVT Attending Provider: Catherine English Primary Care Provider: Wenceslao Mcleod Consulting Providers: Alex Hopkins Instructions Patient Instructions: Supraventricular Tachycardia, Treatment for Supraventricular ... Discharge Orders/Prescriptions Prescriptions: New metoprolol tartrate 25 mg Tablet 25 mg PO BID Qty: 60 2RF Continued levothyroxine 125 MCG tablet 62.5 mcg PO DAILY gabapentin 100 mg capsule 100 mg PO BID Rx Instructions: TAKE ONE CAPSULE (100MG) BY MOUTH EVERY MORNING AND AFTERNOON AND TWO CAPSULES (200MG) EVERY EVENING gabapentin 100 mg capsule 200 mg PO QPM Rx Instructions: TAKE ONE CAPSULE (100MG) BY MOUTH EVERY MORNING AND AFTERNOON AND TWO CAPSULES (200MG) EVERY EVENING pregabalin 50 mg capsule 50 mg PO BID Patient Comments: THIS IS A NEW RX THAT WAS FILLED ON 01/03/2024 AT [facility]. IT HAS NOT BEEN PICKED UP YET OF 01/03/2024 Referrals / Follow Up: Eldon Draper MD [Med Staff - Active Staff] - 01/26/24 9:30 am (With Dr. Foster) Wenceslao Mcleod MD [Primary Care Provider] - Within 1 Week Disposition Disposition (needs filled in before D/C Order can be placed): Home, Self Care Charges/Coding Visit Charges Inpatient E&M: 01385 Disch Hosp >30min
--- NOTE | 2024-01-04 13:31 | DCINST_ITS ---
Discharge Instructions Diet Discharge Diet: Low fat / Low cholesterol Activity Discharge Activity: Return to Normal Activity Weight Bearing Status: Weight bearing as tolerated Dressing / Incision Call your doctor if you observe: Fever of 101 or Higher, Shortness of breath, Dizziness, Chest pain and Increased palpitations (irregular heartbeat) Follow Up Care Test Results: Test results from this visit will be discussed in further detail at your follow- up appointment, if applicable. Discharge Plan Admission Admit Date/Time: 01/03/24 15:24 Primary Reason for Your Visit: SVT Attending Provider: Catherine English Primary Care Provider: Wenceslao Mcleod Consulting Providers: Alex Hopkins Instructions Patient Instructions: Supraventricular Tachycardia, Treatment for Supraventricular ... Discharge Orders/Prescriptions Prescriptions: New metoprolol tartrate 25 mg Tablet 25 mg PO BID Qty: 60 2RF Continued levothyroxine 125 MCG tablet 62.5 mcg PO DAILY gabapentin 100 mg capsule 100 mg PO BID Rx Instructions: TAKE ONE CAPSULE (100MG) BY MOUTH EVERY MORNING AND AFTERNOON AND TWO CAPSULES (200MG) EVERY EVENING gabapentin 100 mg capsule 200 mg PO QPM Rx Instructions: TAKE ONE CAPSULE (100MG) BY MOUTH EVERY MORNING AND AFTERNOON AND TWO CAPSULES (200MG) EVERY EVENING pregabalin 50 mg capsule 50 mg PO BID Patient Comments: THIS IS A NEW RX THAT WAS FILLED ON 01/03/2024 AT [facility]. IT HAS NOT BEEN PICKED UP YET OF 01/03/2024 Referrals / Follow Up: Eldon Draper MD [Med Staff - Active Staff] - 01/26/24 9:30 am (With Dr. Foster) Wenceslao Mcleod MD [Primary Care Provider] - Within 1 Week Disposition Disposition (needs filled in before D/C Order can be placed): Home, Self Care
[2024-01-04] MEDS: Potassium Chloride Oral Tablet 20 MEQ 40 MEQ PO (13:47)
--- NOTE | 2024-01-04 14:04 | CASEMGMT ---
Patient has order for discharge. RN CM in to discuss needs at discharge, at bedside. Patient denies needs or help at discharge. Patient had no further questions or concerns.
--- NOTE | 2024-01-04 14:56 | PHA.DC.MR.R ---
Pharmacy [place] Med Reconciliation Pharmacy Service has performed discharge medication reconciliation for this patient. Medication education papers prepared, patient discharged when counseling attempted. The patient's discharge medication list was reviewed for discrepancies and discrepancies were resolved. Medications at Discharge Home Medications levothyroxine 125 mcg tablet 62.5 mcg PO DAILY THYROID 09/23/18 gabapentin 100 mg capsule 100 mg PO BID NERVE PAIN 01/03/24 gabapentin 100 mg capsule 200 mg PO QPM NERVE PAIN 01/03/24 pregabalin 50 mg capsule 50 mg PO BID PAIN 01/03/24 metoprolol tartrate 25 mg tablet 25 mg PO BID #60 tabs 01/04/24
--- NOTE | 2024-01-04 16:42 | PCM.PN.BLA ---
Progress Note 16:42pm I was contacted by Dr Draper who had just reviewed the patient's EKG from admission on 01/03/2024. He was concerned that the rhythm showed wide complex tachycardia. Patient was discharged earlier today on PO metoprolol 25mg bid. HE would want the patient readmitted for a cardiac cath. I called the patient on her home phone ([phone]) and informed her about hte need for readmission. Patient is agreeable to come back to the ED today. Dr Hampton informed in the ED that Dr Draper to be contacted when patient arrives in the ED, as Dr Draper will admit to his service when she comes in, for cardiac cath tomorrow.
== END 2024-01-04 13:30 | disposition home or self-care (01) ==
LOC: ED 15:07 → PCU 15:41
PROVIDERS: Emergency Provider Emergency Medicine; PCP Family Medicine; Visit Provider Student in an Organized Health Care Education/Training Program
DX: I47.10 Supraventricular tachycardia, unspecified (principal); R06.02 Shortness of breath; R79.89 Other specified abnormal findings of blood chemistry; Z87.891 Personal history of nicotine dependence; I10 Essential (primary) hypertension; R07.89 Other chest pain; Z23 Encounter for immunization; E03.9 Hypothyroidism, unspecified; Z79.890 Hormone replacement therapy; Z79.899 Other long term (current) drug therapy; G62.9 Polyneuropathy, unspecified; Z98.84 Bariatric surgery status
CPT/HCPCS: 36415; 71045; 71275; 80048; 83735; 84443; 84484; 85025; 85379; 85610; 85730; 90656; 93005; 93306; 96374; 99221; 99285; Q9957; Q9967; A4216; G0378; J0153

== ENCOUNTER 2024-01-04 19:47 | Observation (INO) | payer OTHER, SELFPAY ==
[2024-01-04 19:02] VITALS: BP 142/85; PULSE 70; RESP 18; TEMP 36.1; O2SAT 97; BMI 34.7
--- NOTE | 2024-01-04 19:54 | PCM.HP.CAR ---
HPI - General General Date of Admission: 01/04/24 Date of Service: 01/04/24 Chief Complaint: Palpitations HPI Narrative ELLIE KELLER, is a 58 F who presented to the emergency room yesterday with palpitations. She says that she has had these episodes over the last few months but usually it lasts a short duration. There is no associated chest pain per se when she has it and she has not had any dizziness or missy syncopal episodes. She has sometimes been able to breathe deeply and this has improved. Yesterday when she presented she was noted to be in a wide-complex tachycardia with a rate of approximately 200 bpm. She converted back to sinus rhythm and had an echocardiogram performed during the admission which was noted to be normal. She was asked to come back for direct admission for further evaluation of the wide-complex tachycardia. She is currently on a beta-charlie with metoprolol 25 mg twice a day. [facility], [facility] Medical History Arrhythmia Neuropathy Hypothyroid Home Medications ?Medication ?Instructions ?Recorded ?Last Taken ?Type levothyroxine 125 mcg tablet 62.5 mcg PO DAILY THYROID 09/23/18 01/04/24 06:47 History gabapentin 100 mg capsule 100 mg PO BID NERVE PAIN 01/03/24 01/04/24 12:46 History gabapentin 100 mg capsule 200 mg PO QPM NERVE PAIN 01/03/24 01/03/24 22:46 History pregabalin 50 mg capsule 50 mg PO BID PAIN 01/03/24 Unknown History metoprolol tartrate 25 mg tablet 25 mg PO BID #60 tabs 01/04/24 01/04/24 Rx Allergy/AdvReac Type Severity Reaction Status Date / Time No Known Allergies Allergy Verified 01/04/24 19:02 Surgical History H/O gastric sleeve Hx of appendectomy Hx of tubal ligation History of repair of hiatal hernia Hx of tonsillectomy Social History Smoking Status: Former smoker alcohol intake: current alcohol intake frequency: a few times a month ROS Constitutional Constitutional: Denies fever(s) or weight loss Eyes Eyes: Reports systems reviewed and no addt'l complaints, except as documented ENT HEENT: Reports systems reviewed and no addt'l complaints, except as documented Cardiovascular Cardiovascular: Reports palpitations; Denies chest pain at rest, chest pain with activity, dyspnea at rest, dyspnea on exertion, edema or paroxysmal nocturnal dyspnea Respiratory/Chest Respiratory/Chest: Denies dyspnea on exertion, productive cough, shortness of breath at rest or shortness of breath with exertion Gastrointestinal Gastrointestinal: Denies change in bowel habits, nausea, vomiting or weight changes Genitourinary Genitourinary: Denies difficulty urinating Musculoskeletal Musculoskeletal: Denies joint stiffness or muscle weakness Integumentary Integumentary: Denies lesions Neurologic Neurologic: Denies dizziness or syncope Psychiatric Psychiatric: Denies anxiety Endocrine Endocrinology: Denies excessive sweating or fatigue Hematologic/Lymphatic Hematologic/Lymphatic: Denies anemia Allergic/Immunologic Allergic/Immunologic: Denies seasonal rhinorrhea Vital Signs Vital Signs Vital Signs: 01/04/24 19:02 Temperature 96.9 F L Temperature Source Temporal Pulse Rate 70 Respiratory Rate 18 Blood Pressure 142/85 H Blood Pressure Mean 104 Pulse Ox 97 Oxygen Delivery Method Room Air Weight Weight: 235 lb Body Mass Index (BMI) 34.7 Physical Exam Const alert, oriented x3 and no apparent distress General Appearance: cooperative HEENT hearing grossly normal bilaterally Head and Scalp: atraumatic Eyes EOMs intact bilaterally Neck General: normal visual inspection Chest inspection of chest normal and palpation of chest normal Resp normal respiratory effort Auscultation: clear to auscultation bilaterally Cardio regular rate, regular rhythm, S1 normal heart sound and S2 normal heart sound Jugular Venous Distention: JVD GI normal to inspection, nondistended, normoactive bowel sounds Extremity normal capillary refill and no pedal edema Peripheral Pulses: Yes pulses 2+ throughout and femoral pulses present Skin no rashes or lesions noted Neuro oriented x3 and CN's II-XII intact bilaterally Psych Appearance: grossly normal and appropriate Cardiology Labs/Tests Cardiology Labs/Tests: Rhythm: EKG: ECHO: Stress Test: Cardiac Cath: PCI: CT Surgery: Holter monitor: EPS: PPM: CXR: Chest CT Scan: Assessment & Plan Assessment/Plan (1) Wide-complex tachycardia: PLAN: She does have a wide-complex tachycardia which could very well be a ventricular tachycardia especially with a fusion beat noted. An echocardiogram performed demonstrated preserved ejection fraction. My recommendation at this time will be to exclude obstructive coronary disease with a cardiac catheterization especially due to the very fast rate. Depending on the findings further recommendations will be made including referral to the EP department. (2) Elevated troponin: PLAN: Patient was noted to have a mildly elevated cardiac troponin. This will be further evaluated with a cardiac catheterization in a.m. Depending on the results further recommendations will be made.
--- NOTE | 2024-01-04 19:55 | ED.RN ---
Dr Draper to direct admit to PCU. Verbal orders received. Pt not to be seen by ER physician. Nursing pharmaceutical compounding supervisor and registration notified. Pt transported from ED waiting room to PCU room.
[2024-01-04 20:25] VITALS: BMI 36.0
[2024-01-04 21:00] VITALS: BP 121/73; PULSE 98; RESP 18; TEMP 36.7; O2SAT 100
[2024-01-04 21:33] LABS: Absolute Lymphocyte Count 1.42 X10^3/uL (0.83-4.51); Absolute Neutrophil Count 6.3 X10^3/uL (2.0-7.7); Basophil# 0.03 X10^3/uL; Basophil% 0.3 % (0-1); Eosinophil# 0.12 X10^3/uL; Eosinophils% 1.4 % (0-5); Hematocrit 39.1 % (37-47); Hemoglobin 12.7 g/dL (12.0-15.0); Lymphocyte # 1.42 X10^3/ul (0.83-4.51); Lymphocyte % 16.4 % (19-41); Mean Corp Hgb Conc 32.5 g/dL (32-36); Mean Corpuscular Volume 98.5 fL (81-99); Monocyte# 0.72 X10^3/uL; Monocyte% 8.3 % (0-10); NRBC Flagged by Analyzer 0 % (0-5); Neutrophil # 6.33 X10^3/uL (2.7-7.7); Neutrophil % 73.4 % (47-70); Platelet Count 232 K/mm3 (150-450); RBC Distribution Width CV 13.3 % (11.6-14.6); RBC Distribution Width SD 48.5 fl (35.1-43.9); Red Blood Count 3.97 M/mm3 (4.2-5.4); White Blood Count 8.6 K/mm3 (4.4-11.0)
[2024-01-04 21:46] LABS: Anion Gap 5 (5-15); BUN 20 mg/dL (7-18); BUN/Creat Ratio 21.9 RATIO (10-20); Chloride 111 mmol/L (98-107); Creatinine, Serum 0.91 mg/dL (0.55-1.02); EST Glomerular Filtration Rate 67 mL/min (>60); Est Glom Filt Rate - Afr Amer 81 mL/min (>60); Estimated Creatinine Clearance 87.61 ml/min; Glucose 105 mg/dL (74-106); Potassium 4.2 mmol/L (3.5-5.1); Sodium Level 142 mmol/L (136-145)
[2024-01-04 21:52] VITALS: BP 131/67; PULSE 65
[2024-01-04] MEDS: Metoprolol Tartrate 25 MG Tablet PO (21:52)
[2024-01-04] MEDS: Potassium Chloride Oral Tablet 20 MEQ 40 MEQ PO (21:52)
[2024-01-05] VITALS (16 sets, daily range): BP systolic 112–137; BP diastolic 61–95; PULSE 55–77; RESP 16–18; TEMP 36–36.6; O2SAT 95–100
--- NOTE | 2024-01-05 04:52 | EKG12_ITS ---
Test Reason : HEART CATH Blood Pressure : */* mmHG Vent. Rate : 61 BPM Atrial Rate : 61 BPM P-R Int : 148 ms QRS Dur : 86 ms QT Int : 406 ms P-R-T Axes : 57 16 20 degrees QTcB Int : 408 ms Normal sinus rhythm Normal ECG When compared with ECG of 03-Jan-2024 10:41, MANUAL COMPARISON REQUIRED DATA IS UNCONFIRMED Confirmed by KATHIA BOLES, HEIDI ([id number]), web editor PRASHANT GILL ([id number]) on 01/06/2024 11:14:51 AM Referred By: Confirmed By: HEIDI BAE MD
[2024-01-05] MEDS: Metoprolol Tartrate 25 MG Tablet PO ×2 (05:11→20:08)
--- NOTE | 2024-01-05 07:44 | PN.CARD_ITS ---
Subjective Subjective Patient seen and evaluated. Underwent cardiac catheterization this morning Objective Data Vital Signs: Vital Signs Temp Pulse Resp BP Pulse Ox O2 Del Method 98.0 F 66 18 132/67 H 100 Room Air 01/04/24 21:00 01/05/24 05:11 01/04/24 21:00 01/05/24 05:11 01/04/24 21:00 01/05/24 04:38 Oxygen Delivery Method Room Air Weight: 236 lb 12.423 oz Body Mass Index (BMI) 36.0 Intake & Output: Intake and Output for Last 24 Hours 01/03/24 01/04/24 01/05/24 23:59 23:59 23:59 Intake Total 500 / 500 Balance 500 / 500 Lab / Micro Data 01/04/24 21:20 01/04/24 21:20 Labs: Laboratory Results - last 24 hr 01/04/24 21:20: WBC 8.6, RBC 3.97 L, Hgb 12.7, Hct 39.1, MCV 98.5, MCH 32.0, MCHC 32.5, RDW Std Deviation 48.5 H, RDW Coeff of Kori 13.3, Plt Count 232, MPV 10.0, Immature Gran % (Auto) 0.200, Neut % (Auto) 73.4 H, Lymph % (Auto) 16.4 L, [place] % (Auto) 8.3, Eos % (Auto) 1.4, Baso % (Auto) 0.3, Absolute Neuts (auto) 6.3, Absolute Lymphs (auto) 1.42, Nucleated RBC % 0, Sodium 142, Potassium 4.2, Chloride 111 H, Carbon Dioxide 26.0, Anion Gap 5, BUN 20 H, Creatinine 0.91, Estim Creat Clear Calc 87.61, Est GFR (MDRD) Af Amer 81, Est GFR (MDRD) Non-Af 67, BUN/Creatinine Ratio 21.9 H, Glucose 105, Calcium 9.0 Cardiology Labs/Tests 01/04/24 21:20: WBC 8.6, RBC 3.97 L, Hgb 12.7, Hct 39.1, MCV 98.5, MCH 32.0, MCHC 32.5, Plt Count 232, MPV 10.0, Immature Gran % (Auto) 0.200, Neut % (Auto) 73.4 H, Lymph % (Auto) 16.4 L, [place] % (Auto) 8.3, Eos % (Auto) 1.4, Baso % (Auto) 0.3, Absolute Neuts (auto) 6.3, Nucleated RBC % 0, Sodium 142, Potassium 4.2, Chloride 111 H, Carbon Dioxide 26.0, Anion Gap 5, BUN 20 H, Creatinine 0.91, Est GFR (MDRD) Af Amer 81, Est GFR (MDRD) Non-Af 67, BUN/Creatinine Ratio 21.9 H, Glucose 105, Calcium 9.0 Rhythm: EKG: ECHO: Stress Test: Cardiac Cath: PCI: CT Surgery: Holter monitor: EPS: PPM: CXR: Chest CT Scan: Physical Exam Const alert, oriented x3 and no apparent distress General Appearance: cooperative HEENT hearing grossly normal bilaterally Head and Scalp: atraumatic Eyes EOMs intact bilaterally Neck General: normal visual inspection Chest inspection of chest normal and palpation of chest normal Resp normal respiratory effort Auscultation: clear to auscultation bilaterally Cardio regular rate, regular rhythm, S1 normal heart sound and S2 normal heart sound Jugular Venous Distention: JVD GI normal to inspection, nondistended, normoactive bowel sounds Extremity normal capillary refill and no pedal edema Peripheral Pulses: Yes pulses 2+ throughout and femoral pulses present Skin no rashes or lesions noted Neuro oriented x3 and CN's II-XII intact bilaterally Psych Appearance: grossly normal and appropriate Assessment & Plan Assessment/Plan (1) Wide-complex tachycardia: PLAN: She does have a wide-complex tachycardia which could very well be a ventricular tachycardia especially with a fusion beat noted. An echocardiogram performed demonstrated preserved ejection fraction. Cardiac catheterization this morning demonstrated normal coronary arteries. There was preserved ejection fraction but with an area in the inferior wall with a mild outpouching. And thickening. I will recommend at this stage transferred to a tertiary care facility for an EP evaluation and a cardiac MRI. (2) Elevated troponin: PLAN: Patient was noted to have a mildly elevated cardiac troponin. This will be further evaluated with a cardiac catheterization in a.m. Depending on the results further recommendations will be made.
--- NOTE | 2024-01-05 08:05 | CL.D_ITS ---
Patient Name: ELLIE KELLER Study Date: 01/05/2024 Performing: Eldon Draper MD Ht: 68 inches 172.72 cm : 1965 Wt: 237.1 lbs 107.4 kg Age: 58 Gender: female BSA: 2.2 PROCEDURE(S) PERFORMED [id number])LHC/COR/LV CLINICAL PROFILE AND INDICATIONS Indications: Cardiac Arrythmia Heart Failure: None Stress/Imaging Stress/Image Study Performed: No CAD Presentations: Other: VT CONCLUSIONS Normal coronary arteries Normal LV size, wall motion,and systolic function Wide-complex tachycardia RECOMMENDATIONS Referred for EP evaluation. DESCRIPTION OF PROCEDURE The patient arrived to the procedure lab. The risks and benefits of the procedure as well as a full description of our services here and current unavailability of surgical backup were fully explained to the patient and/or their significant other prior to the catheterization. The Timeout was completed, verifying the correct patient and procedure. The patient's procedural site was prepped and draped in the usual fashion. Local anesthetic was given subcutaneously to right radial region with Lidocaine 2%. Using a modified Seldinger technique, arterial access was obtained via the right radial artery, a 6Fr sheath was inserted. Right Coronary Artery selective angiography was then performed in multiple views using a 5 Fr. 4.0 [place] catheter. Left Coronary Artery selective angiography was performed in multiple views using a 5 Fr. 4.0 [place] catheter. Left Ventriculography was performed in [place] projection using a 5 Fr. [place] catheter. LV to AO pullback pressures were then recorded.The arterial sheath was pulled and a TR Band was applied for hemostasis 10 ml of air CORONARY ANGIOGRAPHY DOMINANCE: Right Dominant LEFT HEART ASSESSMENT Left Ventricular Ejection Fraction: by LV Gram 65 % Normal LV wall motion With an area in the inferior wall which appears to be thickened with mild outpouching. Normal Left Ventricular systolic function LEFT MAIN: Angiographically normal LEFT ANTERIOR DESCENDING ARTERY: Angiographically normal CIRCUMFLEX ARTERY: Angiographically normal RIGHT CORONARY ARTERY: Angiographically normal COMPLICATIONS No Complications PROCEDURE MEDICATIONS Versed 1 mg IV Fentanyl 50 mcg IV Versed 1 mg IV Oxygen: 2 L/min via nasal cannula Heparin given IA 01/05/2024 07:23:49 Verapamil 2.5mg, Ntg 100mcgs, 3000 units of Heparin given IA 01/05/2024 07:23:49 SUMMARY OF HEMODYNAMIC DATA Time AIR REST ECG 07:10:11 AO 159/81 (111) SA 07:30:46 AO 137/79 (105) 07:32:45 LV 154/15, 24 07:37:45 LV 137/18, 23 07:37:53 LV 152/27, 57 07:38:31 LV 123/17, 22 07:38:39 LVp 121/16, 19 07:38:43 AOp 151/74 (106) 07:38:50 Signed By Eldon Draper MD On 01/05/2024 08:03:46 Eldon Draper MD
[2024-01-05] MEDS: Aspirin 81 MG TAB.CHEW PO (08:41)
[2024-01-05] MEDS: Gabapentin 100 MG Capsule PO ×2 (08:41→14:21)
[2024-01-05] MEDS: Levothyroxine 125 MCG Tablet 62.5 MCG PO (08:41)
[2024-01-05] MEDS: Gabapentin 100 MG Capsule 200 MG PO (20:08)
--- NOTE | 2024-01-05 22:41 | NURSING ---
report given to Carol at [facility].
[2024-01-06 05:34] VITALS: BP 141/78; PULSE 66; RESP 18; TEMP 36; O2SAT 99
[2024-01-06] MEDS: Levothyroxine 125 MCG Tablet 62.5 MCG PO (05:34)
[2024-01-06] MEDS: Gabapentin 100 MG Capsule PO (05:34)
--- NOTE | 2024-01-06 07:55 | PN.CARD_ITS ---
Subjective Subjective Patient seen and evaluated. Had uneventful night. Still waiting for transport. Objective Data Vital Signs: Vital Signs Temp Pulse Resp BP Pulse Ox O2 Del Method 96.8 F L 66 18 141/78 H 99 Room Air 01/06/24 05:34 01/06/24 05:34 01/06/24 05:34 01/06/24 05:34 01/06/24 05:34 01/06/24 05:34 Oxygen Delivery Method Room Air Weight: 236 lb 12.423 oz Body Mass Index (BMI) 36.0 Intake & Output: Intake and Output for Last 24 Hours 01/04/24 01/05/24 01/06/24 23:59 23:59 23:59 Intake Total 500 / 500 120 / 120 Balance 500 / 500 120 / 120 Lab / Micro Data 01/04/24 21:20 01/04/24 21:20 Cardiology Labs/Tests Rhythm: EKG: ECHO: Stress Test: Cardiac Cath: PCI: CT Surgery: Holter monitor: EPS: PPM: CXR: Chest CT Scan: Assessment & Plan Assessment/Plan (1) Wide-complex tachycardia: PLAN: She does have a wide-complex tachycardia which could very well be a ventricular tachycardia especially with a fusion beat noted. An echocardiogram performed demonstrated preserved ejection fraction. Cardiac catheterization this morning demonstrated normal coronary arteries. There was preserved ejection fraction but with an area in the inferior wall with a mild outpouching. And thickening. I will recommend at this stage transferred to a tertiary care facility for an EP evaluation and a cardiac MRI. Patient to be transferred to this a.m. to [facility]. (2) Elevated troponin: PLAN: Patient was noted to have a mildly elevated cardiac troponin.
--- NOTE | 2024-01-06 07:57 | DCINST_ITS ---
Discharge Instructions Diet Discharge Diet: No restrictions (You may continue your normal diet.) Activity Discharge Activity: Return to Normal Activity Lifting Restrictions: 10 pounds and also avoid any pushing or pulling for 3 days after your test. Additional Activity Instructions:: You must have someone drive you home. Do not drive until instructed by your doctor. You must have someone stay with you all night after your test. Rest in bed or on the couch until the next morning. Limit the number of times you go up and down stairs the day of your test. Apply pressure to the puncture site if you sneeze or cough. Dressing / Incision Call your doctor if your incision/area has: Increased Pain/ Swelling, Increased Redness, Foul Smelling Discharge and Swelling at the incision site Call your doctor if you observe: Fever of 101 or Higher Additional Dressing/Incision Instructions:: Keep the dressing (bandage) on until the next morning. You may then shower, but do not take a tub bath for 5 days after your test. It is normal to have some tenderness and discomfort at the puncture site. Sometimes bruising also occurs. However, if pain, numbness, or coldness occurs below the puncture site (in your leg, toes, arms or fingers) call your doctor at once. You may have a small, marble sized knot at the puncture site. This is normal. Do not rub it. It will go away in 4-6 weeks. Bleeding can occur from the area where the puncture was done. Blood may spurt or drip from the site. If blood spurts, apply pressure right away to stop bleeding and call 911. Although rare, bleeding into the tissue (hematoma) can also occur. If this happens, a large, firm area goose egg under the skin will appear. If any of these occur, lie down as flat as you can and have someone apply firm pressure to the cath site with a gauze pad or a clean washcloth for 10-15 minutes. Call 911 or go to the Emergency Department. Follow Up Care When: You are being transferred to [facility] and my office will contact you for follow-up appointment. Test Results: Test results from this visit will be discussed in further detail at your follow- up appointment, if applicable. Discharge Plan Admission Admit Date/Time: 01/04/24 19:47 Attending Provider: Eldon Draper Primary Care Provider: Wenceslao Mcleod Discharge Orders/Prescriptions Prescriptions: Continued levothyroxine 125 MCG tablet 62.5 mcg PO DAILY gabapentin 100 mg capsule 100 mg PO BID Rx Instructions: TAKE ONE CAPSULE (100MG) BY MOUTH EVERY MORNING AND AFTERNOON AND TWO CAPSULES (200MG) EVERY EVENING gabapentin 100 mg capsule 200 mg PO QPM Rx Instructions: TAKE ONE CAPSULE (100MG) BY MOUTH EVERY MORNING AND AFTERNOON AND TWO CAPSULES (200MG) EVERY EVENING pregabalin 50 mg capsule 50 mg PO BID Patient Comments: THIS IS A NEW RX THAT WAS FILLED ON 01/03/2024 AT [facility]. IT HAS NOT BEEN PICKED UP YET OF 01/03/2024 metoprolol tartrate 25 mg Tablet 25 mg PO BID Qty: 60 2RF Referrals / Follow Up: Wenceslao Mcleod MD [Primary Care Provider] - Disposition Disposition (needs filled in before D/C Order can be placed): Home, Self Care
[2024-01-06 08:08] VITALS: BP 129/60; PULSE 60; RESP 16; TEMP 36.6; O2SAT 100
[2024-01-06 08:18] VITALS: BP 129/60; PULSE 60
[2024-01-06] MEDS: Metoprolol Tartrate 25 MG Tablet PO (08:18)
[2024-01-06] MEDS: Aspirin 81 MG TAB.CHEW PO (08:18)
== END 2024-01-06 07:57 | disposition home or self-care (01) ==
PROVIDERS: Admitting Provider Internal Medicine Cardiovascular Disease; PCP Family Medicine; Visit Provider Internal Medicine Cardiovascular Disease
DX: I47.29 Other ventricular tachycardia (principal); Z87.891 Personal history of nicotine dependence; Z23 Encounter for immunization; E03.9 Hypothyroidism, unspecified; Z79.890 Hormone replacement therapy; G62.9 Polyneuropathy, unspecified; Z79.899 Other long term (current) drug therapy; R79.89 Other specified abnormal findings of blood chemistry
CPT/HCPCS: 36415; 80048; 85025; 93005; 93458; 99152; 99153; 99221; J7040; Q9967; C1769; C1894; G0378